=== PATIENT | female | born 1960 | race Caucasian/White ===

== ENCOUNTER 2023-08-10 13:48 | Outpatient (OUT) | payer BC, SELFPAY ==
--- NOTE | 2023-08-10 | XR_ITS ---
The [address] [address] Patient Name: RACHELE MARTINEZ MRN: [id number] date: 1960 Sex: F Assigned Patient Location: [facility] Current Patient Location: [facility] Accession/Order Number: [id number] Exam Date: 08/10/2023 09:10 Report Date: 08/10/2023 10:01 At the request of: DALLIN HIGGINS Procedure: XR foot LT min 3V STUDY: XR foot LT min 3V, [id number] HISTORY: LEFT FOOT PAIN COMPARISON: Left foot x-rays 02/09/2023. FINDINGS/IMPRESSION: First through third tarsometatarsal joint fusion. The fusion screws are intact and similar alignment. No evidence of loosening or infection. 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 Mild Achilles insertional enthesopathy. No acute fracture or dislocation. There is pes planus. Electronically authenticated by: MALCOLM SIMEON Date: 08/10/2023 10:01
== END 2023-08-10 13:49 | disposition home or self-care (01) ==
LOC: RAD 13:49
PROVIDERS: Visit Provider Podiatrist Foot & Ankle Surgery
DX: M19.072 Primary osteoarthritis, left ankle and foot (principal)
CPT/HCPCS: 73630

== ENCOUNTER 2024-03-12 11:25 | Outpatient (OUT) | payer OTHER, SELFPAY ==
[2024-03-12 13:05] LABS: Alanine Aminotransferase 31 U/L (14-59); Aspartate Amino Transferase 23 U/L (15-37)
== END 2024-03-12 11:26 | disposition home or self-care (01) ==
LOC: LAB 11:29
PROVIDERS: PCP Family Medicine; Visit Provider Obstetrics & Gynecology
DX: R23.2 Flushing (principal); Z90.710 Acquired absence of both cervix and uterus
CPT/HCPCS: 36415; 84450; 84460

== ENCOUNTER 2024-03-12 21:30 | Outpatient (REF) | payer OTHER, SELFPAY ==
[2024-03-16 14:09] LABS: Age Gdln ACOG Testing Note (.); HPV Aptima Negative (Negative); IGP, Aptima HPV, rfx 16/18,45 Note (.)
== END 2024-03-12 21:31 | disposition home or self-care (01) ==
LOC: LAB 21:30
PROVIDERS: PCP Family Medicine; Visit Provider Obstetrics & Gynecology
DX: Z01.419 Encounter for gynecological examination (general) (routine) without abnormal findings (principal); R23.2 Flushing; Z90.710 Acquired absence of both cervix and uterus
CPT/HCPCS: 36415; 84450; 84460; G0145

== ENCOUNTER 2024-03-19 08:54 | Outpatient (OUT) | payer OTHER, SELFPAY ==
--- NOTE | 2024-03-19 08:57 | XR_ITS ---
[address] [address] Patient Name: RACHELE MARTINEZ MRN: [id number] date: 1960 Sex: F Assigned Patient Location: [facility] Current Patient Location: [facility] Accession/Order Number: [id number] Exam Date: 03/19/2024 09:10 Report Date: 03/19/2024 09:41 At the request of: CHARU MARTINI Procedure: XR DEXA axial skeleton EXAMINATION: XR DEXA axial skeleton, 03/19/2024 9:10 AM EDT HISTORY: Osteoporosis M81.0 COMPARISON: None. TECHNIQUE: Dual-energy X-ray absorptiometry (DEXA) bone density study performed for the axial skeleton. HISTORY: Osteoporosis M81.0 FINDINGS: Bone mineral density AP spine L2-L4 measures 1.202 g/sq cm. T score 0.0. WHO classification: Normal. Lowest bone mineral densities the left femoral trochanter measuring 0.599 g/sq cm. The T score -2.2. WHO classification: Osteopenia XR/XR DEXA axial skeleton IMPRESSION: Osteopenia. Moderate fracture risk Electronically authenticated by: CARLITOS VANEGAS Date: 03/19/2024 09:41
== END 2024-03-19 08:55 | disposition home or self-care (01) ==
LOC: RAD 08:54
PROVIDERS: PCP Family Medicine; Visit Provider Obstetrics & Gynecology
DX: M81.0 Age-related osteoporosis without current pathological fracture (principal); M85.80 Other specified disorders of bone density and structure, unspecified site
CPT/HCPCS: 77080

== ENCOUNTER 2025-03-19 10:24 | Outpatient (OUT) | payer OTHER, SELFPAY | END 2025-03-19 10:25 | disposition home or self-care (01) | LOC: PST 10:24 | PROVIDERS: PCP Family Medicine; Visit Provider Surgery | DX: Z01.818 Encounter for other preprocedural examination (principal); Z12.11 Encounter for screening for malignant neoplasm of colon ==

== ENCOUNTER 2025-03-27 07:28 | Day surgery (SDC) | payer OTHER, SELFPAY ==
--- NOTE | 2025-03-27 | OP_ITS ---
OPERATION DATE: 03/27/2025 PREOPERATIVE DIAGNOSIS: Colorectal screening. POSTOPERATIVE DIAGNOSIS: Redundant tortuous colon. PROCEDURE: Colonoscopy to cecum. SURGEON: Lai Jean M.D. ANESTHESIA: Monitored anesthesia care. ESTIMATED BLOOD LOSS: Zero. INDICATIONS AND CONSENT: Patient is a 64-year-old female, presents for colorectal screening. Indications, risks, benefits, alternatives of proceeding with colonoscopy were explained extensively to the patient, including the risks of bleeding, colon perforation or anesthetic complications. All of her questions were answered. Informed consent was obtained. PROCEDURE: Patient brought to the operating room, placed in the left lateral decubitus position. Monitored anesthesia care was provided. Rectal exam was performed which showed no masses or blood. The scope was inserted into the anal canal. Under direct visualization was advanced. With the aid of abdominal compression and positional changes, it was able to be advanced to the cecum where cecal markings were clearly identified. Upon withdrawal of the scope, mucosal surfaces were carefully examined. There was noted to be a good prep. There were no mass lesions or polyps. No inflammatory changes or ulcerations. No significant diverticulosis. There was noted to be a very tortuous redundant colon. The scope was retroflexed in the anal canal. There was no significant hemorrhoidal disease. The scope was then withdrawn. Patient tolerated procedure well, was sent to recovery room in good condition. Follow up screening colonoscopy should be in 10 years. CC: Salud Guerrero M.D. LEON[place]
[2025-03-27 07:35] VITALS: BP 132/90; PULSE 116; TEMP 36.2; O2SAT 98; BMI 28.3
--- OUTSIDE RECORDS SUMMARY | 2025-03-27 07:39 | XMS_ITS | CCD ---
Author Organization [facility] Care Team Providers Care Tester Waste Disposal Leakage Name Role Phone Aneesh Rider Unavailable Prema Cardona Unavailable Nazanin Valladares Unavailable Vadim Cornejo Unavailable [facility] [place] RESENDIZ Consulting Unavailable CLEMENTE, DR VADIM Gonzalez Primary Care Unavailable [facility] [place] RESENDIZ Attending Unavailable [facility] [place] RESENDIZ Admitting Unavailable BELINDA, DR SANTY Cates Consulting Unavailable BELINDA, DR SANTY Cates Attending Unavailable BELINDA, DR SANTY Cates Admitting Unavailable CLEMENTE, DR VADIM Gonzalez Primary Care Unavailable JERSEY MILTON Consulting Unavailable DALLIN HIGGINS Consulting Unavailable CLEMENTE, DR VADIM Gonzalez Primary Care Unavailable DALLIN HIGGINS Attending Unavailable DALLIN HIGGINS Admitting Unavailable DANNIE ARZOLA Consulting Unavailable NUBIA, DR LOC Cates Consulting Unavailable CLEMENTE, DR VADIM Gonzalez Primary Care Unavailable DALLIN HIGGINS Attending Unavailable DALLIN HIGGINS Admitting Unavailable DALLIN HIGGINS Consulting Unavailable POLI SAMSON Consulting Unavailable ALBERTA SALINAS Consulting Unavailable GEMRENNY COLLADO Consulting Unavailable ROSALES MCCOY Consulting Unavailable SHARON VASQUEZ Consulting Unavailable CEZAR PETIT Consulting Unavailable CLEMENTE, DR VADIM Gonzalez Primary Care Unavailable CEZAR PETIT Attending Unavailable CEZAR PETIT Admitting Unavailable CARLITOS PIÑA Consulting Unavailable NUBIA, DR LOC Cates Consulting Unavailable CLEMENTE, DR VADIM Gonzalez Primary Care Unavailable CEZAR PETIT Attending Unavailable CEAZR PETIT Admitting Unavailable CEZAR PETIT Consulting Unavailable NALDO, DR CARLITOS Baugh Consulting Unavailable CLEMENTE, DR VADIM Gonzalez Primary Care Unavailable DALLIN HIGGINS Attending Unavailable DALLIN HIGGINS Admitting Unavailable DALLIN HIGGINS Consulting Unavailable NUBIA, DR LOC Cates Consulting Unavailable CLEMENTE, DR VADIM Gonzalez Primary Care Unavailable CLEMENTE, DR VADIM Gonzalez Attending Unavailable CORNEJO, DR VADIM Gonzalez Admitting Unavailable CORNEJO, DR VADIM Gonzalez Consulting Unavailable MINGUS, DR CARLITOS Baugh Consulting Unavailable CLEMENTE, DR VADIM Gonzalez Primary Care Unavailable RONALDO, DALLIN Angulo Attending Unavailable DALLIN HIGGINS Admitting Unavailable DALLIN HIGGINS Consulting Unavailable NUBIA, DR LOC Cates Consulting Unavailable CLEMENTE, DR VADIM Gonzalez Primary Care Unavailable DALLIN HIGGINS Attending Unavailable DALLIN HIGGINS Admitting Unavailable DALLIN HIGGINS Consulting Unavailable MD Vadim Cornejo Primary Care Provider MD Vadim Cornejo Attending Provider [phone] Vadim Cornejo Admitting Unavailable Vadim Cornejo Attending Unavailable Vadim Cornejo Primary Care Unavailable Vadim Cornejo MD Primary Care Provider Alejo Zavala MD Primary Care Provider Piper MUSEUM REGISTRAR, Cyndi Unavailable Barrett Ying DO Unavailable Piper MUSEUM REGISTRAR, Cyndi Unavailable [phone] BARRETT YING Attending Unavailable CYNDI PIPER Attending UnavailBARRETT Wheeler Referring Unavailable CYNDI PIPER Attending UnavailDIAN Anglin Attending Unavailable Lai LEBRON Attending Unavailable DIAN SORIANO Referring Unavailable Lai LEBRON Attending Unavailable DIAN SORIANO Referring Unavailable Allergies Allergy Classification Reported Allergen(s) Allergy Type Date of Onset Reaction(s) Facility (20 sources) Ciprofloxacin Drug Allergy 01-11-20 20 Shortness of breath, Angioedema [facility] (20 sources) NITROFURANTOIN, MACROCRYSTALS / Nitrofurantoin, Monohydrate Drug Allergy Unknown [facility] Other (20 sources) venlafaxine; Translations: [Effexor] Drug Allergy Unknown [facility] Repository (2 sources) Ciprofloxacin; Translations: [Cipro] Drug Allergy 10-08-20 15 [facility] Repository (1 source) Nitrofurantoin Drug Allergy 10-08-20 15 [facility] (20 sources) Nitrofurantoin; Translations: [nitrofurantoin] Drug Allergy 01-11-20 Rash, Shortness of breath [facility] (20 sources) venlafaxine; Translations: [venlafaxine] Drug Allergy 01-11-20 20 Shortness of breath [facility] (1 source) Ciprofloxacin Drug Allergy 04-24-20 [facility] Repository (2 sources) Allergies Reconciled Propensity to adverse reactions Unknown [facility] Other (20 sources) Baclofen; Translations: [baclofen] Drug Allergy 01-11-20 [facility] Work Phone: (3 sources) Penicillins Drug Allergy 01-11-20 Shortness of breath [facility] Medications Current Medications Medication Drug Class(es) Dates Sig (Normalized) Sig (Original) acetaminophen 300 mg / codeine phosphate 30 mg oral tablet (2 sources) Opioid Agonist Start: 04-24-2020 take 1 tablet by mouth every eight hours Acetaminophen-Code ine (Tylenol-Codeine #3) 300-30 mg Tablet Active 1 TAB PO Q8H April 24, 2020 12:00am Acetaminophen / HYDROcodone (20 sources) Opioid Agonist Start: 11-03-2020 take 1 tablet by mouth twice daily as needed [place] 5-325 MG 1 tablet as needed Orally twice daily for 7 days G89.29 Chronic pain Oct, Active alendronic acid 70 mg oral tablet (17 sources) Bisphosphonate Start: 03-29-2024 End: 02-26-2026 take 1 tablet by mouth in the morning alendronate (Fosamax) 70 MG tablet Indications: Osteopenia, unspecified location Take 1 tablet (70 mg) by mouth every 7 (seven) days Take in the morning with a full glass of water, on an empty stomach, and do not take anything else by mouth or lie down for the next 30 min. 4 tablet 11 02/26/2025 02/26/2026 Active ALPRAZolam 0.25 mg oral tablet (20 sources) Benzodiazepine Start: 01-25-2025 End: 03-28-2025 ALPRAZolam (Xanax) 0.25 MG tablet Indications: Generalized anxiety disorder (CMS/HCC) Take 1 tablet (0.25 mg) by mouth as needed at bedtime for anxiety 30 tablet 02/26/2025 03/28/2025 Active Start: 12-30-2024 ALPRAZolam (Xa nax) 0.25 MG tablet Indications: Generalized anxiety disorder (CMS/HCC) Take 1 tablet (0.25 mg) by mouth as needed at bedtime for anxiety Do not start before December 30, 2024. 30 tablet 12/30/2024 Active Start: 12-30-2024 ALPRAZolam (Xa nax) 0.25 MG tablet Indications: Generalized anxiety disorder (CMS/HCC) Take 1 tablet (0.25 mg) by mouth as needed at bedtime for anxiety Do not start before December 30, 2024. 30 tablet 12/30/2024 Active Start: 11-30-2024 End: 12-26-2024 ALPRAZolam (Xanax) 0.25 MG t ablet Indications: Generalized anxiety disorder (CMS/HCC) Take 1 tablet (0.25 mg) by mouth as needed at bedtime for anxiety Do not start before November 30, 2024. 30 tablet 11/30/2024 12/26/2024 Discontinued (Reorder) Start: 11-30-2024 ALPRAZolam (Xa nax) 0.25 MG tablet Indications: Generalized anxiety disorder (CMS/HCC) Take 1 tablet (0.25 mg) by mouth as needed at bedtime for anxiety Do not start before November 30, 2024. 30 tablet 11/30/2024 Active Start: 11-30-2024 ALPRAZolam (Xa nax) 0.25 MG tablet Indications: Generalized anxiety disorder (CMS/HCC) Take 1 tablet (0.25 mg) by mouth as needed at bedtime for anxiety Do not start before November 30, 2024. 30 tablet 11/30/2024 Active Start: 10-30-2024 End: 11-29-2024 take 1 tablet by mouth three times daily as needed for anxiety ALPRAZolam (Xanax) 0.25 MG tablet Indications: Generalized anxiety disorder (CMS/HCC) Take 1 tablet (0.25 mg) by mouth 3 (three) times a day as needed for anxiety Do not start before October 30, 2024. 30 tablet 10/30/2024 11/29/2024 Discontinued (Reorder) Start: 10-30-2024 take 1 tablet by zeynep th three times daily as needed for anxiety ALPRAZolam (Xanax) 0.25 MG tablet Indications: Generalized anxiety disorder (CMS/HCC) Take 1 tablet (0.25 mg) by mouth 3 (three) times a day as needed for anxiety Do not start before October 30, 2024. 30 tablet 10/30/2024 Active Start: 08-07-2024 take 1 tablet by zeynep th three times daily as needed for anxiety ALPRAZolam (Xanax) 0.25 MG tablet Indications: Generalized anxiety disorder (CMS/HCC) Take 1 tablet (0.25 mg) by mouth 3 (three) times a day as needed for anxiety 30 tablet 08/07/2024 Active Start: 01-19-2024 End: 02-17-2024 take 0.25 mg by mouth twice daily Alprazolam Active 0.25 MG PO Twice daily 30 February 17, 2024 10:26am Start: 06-03-2023 End: 10-25-2024 take 1 tablet by mouth three times daily as needed for anxiety ALPRAZolam (Xanax) 0.25 MG tablet Indications: Generalized anxiety disorder (CMS/HCC) Take 1 tablet (0.25 mg) by mouth 3 (three) times a day as needed for anxiety 30 tablet 10/01/2024 10/25/2024 Discontinued (Reorder) Start: 03-23-2023 take 1 tablet by zeynep th three times daily as needed ALPRAZolam 0.25 mg TAKE 1 TABLET BY MOUTH THREE TIMES DAILY NEEDED for March, Active Start: 02-10-2023 take 1 tablet by zeynep th three times daily as needed ALPRAZolam 0.25 mg TAKE 1 TABLET BY MOUTH THREE TIMES DAILY NEEDED for Jan, Active Start: 12-13-2022 take 1 tablet by zeynep th three times daily as needed ALPRAZolam 0.25 mg TAKE 1 TABLET BY MOUTH THREE TIMES DAILY NEEDED for Nov, Active atenolol 50 mg oral tablet (20 sources) beta-Adrenergic Sarah Start: 01-04-2025 take 1 tablet by mouth once daily atenolol (Tenormin) 50 MG tablet Indications: Primary hypertension (CMS/HCC) Take 1 tablet (50 mg) by mouth Daily 30 tablet 3 01/04/2025 Active Start: 01-02-2024 take 1 tablet by zeynep th once daily Atenolol Active 0 .ROUTE .COMPLEX 90 January 02, 2024 1:14pm TAKE 1 TABLET BY MOUTH DAILY Start: 04-24-2020 End: 01-02-2024 take 50 mg by mouth once daily Atenolol Discontinued 5 0 MG PO Daily April 24, 2020 12:00am January 02, 2024 1:14pm Baclofen (20 sources) gamma-Aminobutyric Acid-ergic Agonist busPIRone hydrochloride 15 mg oral tablet (20 sources) Start: 02-18-20 take 1 tablet by mouth in the morning busPIRone (Buspar) 15 MG tablet Take 15 mg by mouth in the morning and 15 mg before bedtime. 02/17/2025 Active Start: 06-20-2024 End: 08-06-2024 take 1 tablet by mouth in the morning busPIRone (Buspar) 15 MG tablet Take 15 mg by mouth in the morning and 15 mg before bedtime. 06/20/2024 08/06/2024 Discontinued (Duplicate order) Start: 03-19-2024 take 10 mg by mouth twice alexi y Buspirone Active 10 MG PO Twice daily March 19, 2024 12:00am End: 02-28-2025 take 1 tablet by mouth once daily busPIRone (Buspar) 10 MG tablet Take 10 mg by mouth Daily 02/28/2025 Discontinued (Therapy completed) calcium citrate 950 mg oral tablet (10 sources) Start: 03-19-2024 End: 11-29-2024 calcium citrate (Calcitrate) 950 (200 Ca) MG tablet Daily 03/19/2024 11/29/2024 Discontinued cholecalciferol 0.025 mg oral tablet (13 sources) Vitamin D Start: 01-16-2023 End: 11-29-2024 take 1 tablet by mouth in the morning cholecalciferol (Vitamin D-3) 25 MCG tablet Take 25 mcg by mouth in the morning. 01/16/2023 11/29/2024 Discontinued cyclobenzaprine hydrochloride 10 mg oral tablet (20 sources) Muscle Relaxant Start: 05-29-2023 take 4 tablets by mouth at bedtime cyclobenzaprine (Flexeril) 10 MG tablet TAKE 4 TABLETS BY MOUTH AT BEDTIME 05/29/2023 Active Start: 04-24-2020 take 30 mg by mouth once daily at bedtime Cyclobenzaprine Active 30 MG PO Daily at bedtime April 24, 2020 12:00am take 1 tablet by zeynep th every twenty-four hours Cyclobenzaprine HCl 10 MG 1 tablet at bedtime as needed Orally Once a day Active estradiol 2 mg oral tablet (20 sources) Estrogen Start: 11-23-2024 End: 11-23-2025 take 1 tablet by mouth once daily estradiol (Estrace) 2 MG tablet Indications: Menopause , Hot flashes , Vaginal dryness Take 1 tablet (2 mg) by mouth Daily Take 1 tablet by mouth for 30 days 30 tablet 11 11/23/2024 11/23/2025 Active Start: 01-02-2024 End: 08-06-2024 take 1 tablet by mouth once daily estradiol (Estrace) 2 MG tablet Indications: Vaginal dryness Take 1 tablet (2 mg) by mouth Daily 30 tablet 2 03/15/2024 08/06/2024 Discontinued (Discontinued by another clinician) Start: 06-02-2023 End: 12-26-2023 apply 1 dose transdermal route two times weekly Magaly 0.1 MG/24HR APPLY 1 (ONE) patch to the skin twice a week 0 06/02/2023 12/26/2023 Discontinued (Med list cleanup) Start: 04-24-2020 End: 01-02-2024 apply 1 dose topically two times weekly Estradiol Discontinued 1 PATCH TOPICAL Twice a Week April 24, 2020 12:00am January 02, 2024 5:14pm fridays and tuesdays take 1 tablet by zeynep th every twenty-four hours Estradiol 2 MG 1 tablet Orally Once a day for 30 days Active take 1 tablet by zeynep th every twenty-four hours Estradiol 1 MG 1 tablet Orally Once a day for 30 days Active apply 1 dose transde rmal route two times weekly Estradiol 0.075 MG/24HR 1 patch to skin Transdermal Two times a Week Active [place] Not-Jadyn ng Fezolinetant (Veozah) 45 MG tablet (4 sources) Start: 11-20-2024 End: 11-29-2024 take 1 tablet by mouth once daily Fezolinetant (Veozah) 45 MG tablet Indications: Menopause , Hot flashes Take 1 tablet by mouth Daily 30 tablet 2 11/20/2024 11/29/2024 Discontinued (Side effects) Start: 08-17-2024 End: 09-16-2024 take 1 tablet by mouth once daily Fezolinetant (Veozah) 45 MG tablet Indications: Hot flashes Take 1 tablet by mouth Daily 30 tablet 2 08/17/2024 09/16/2024 Active furosemide 40 mg oral tablet (20 sources) Loop Diuretic Start: 01-04-2025 take 1 tablet by mouth once daily furosemide (Lasix) 40 MG tablet Indications: Primary hypertension (CMS/HCC) Take 1 tablet (40 mg) by mouth Daily 30 tablet 3 01/04/2025 Active Start: 04-24-2020 take 40 mg by mouth once daily Furosemide Active 40 MG PO Daily April 24, 2020 12:00am levothyroxine sodium 0.075 mg oral tablet (15 sources) l-Thyroxine Start: 03-20-2025 End: 06-18-2025 take 1 tablet by mouth before mealtime levothyroxine (Synthroid, Levoxyl) 75 MCG tablet Indications: Adult hypothyroidism (CMS/HCC) Take 1 tablet (75 mcg) by mouth in the morning. Take before meals. 90 tablet 03/20/2025 06/18/2025 Active Start: 01-04-2025 End: 03-20-2025 take 1 tablet by mouth once daily levothyroxine (Synthroid, Levoxyl) 50 MCG tablet Indications: TSH elevation Take 1 tablet (50 mcg) by mouth Daily 30 tablet 3 01/04/2025 03/20/2025 Discontinued (Ineffective) Start: 08-20-2024 End: 08-20-2025 take 1 tablet by mouth once daily levothyroxine (Synthroid, Levoxyl) 25 MCG tablet Indications: TSH elevation Take 1 tablet (25 mcg) by mouth Daily 30 tablet 3 11/29/2024 01/04/2025 Discontinued (Reorder) lisinopril 2.5 mg oral tablet (20 sources) Angiotensin Converting Enzyme Inhibitor Start: 04-24-2020 End: 12-26-2023 take 2.5 mg by mouth once daily Lisinopril Active 2.5 MG PO Daily April 24, 2020 12:00am methylPREDNISolone (4 sources) Corticosteroid Start: 02-28-2025 End: 03-07-2025 methylPREDNISolone (Medrol Dospak) 4 MG tablets Indications: Osteoarthritis of left knee, unspecified osteoarthritis type Take with food, Follow schedule on package instructions 21 tablet 02/28/2025 03/07/2025 Active Start: 12-26-2023 methylPREDNISo lone (Medrol Dospak) 4 MG tablets Indications: Knee strain, left, initial encounter Follow schedule on package instructions 21 tablet 0 12/26/2023 Active metoclopramide 5 mg oral tablet (20 sources) Dopamine-2 Receptor Antagonist Start: 06-27-2023 End: 10-01-2025 metoclopramide (Reglan) 5 MG tablet Indications: Gastroesophageal reflux disease with esophagitis, unspecified whether hemorrhage Take 1 tablet (5 mg) by mouth in the morning and 1 tablet (5 mg) at noon and 1 tablet (5 mg) in the evening and 1 tablet (5 mg) before bedtime. 120 tablet 11 10/01/2024 10/01/2025 Active omeprazole 40 mg delayed release oral capsule (20 sources) Proton Pump Inhibitor Start: 04-24-2020 take 40 mg by mouth twice daily Omeprazole Active 40 MG PO Twice daily April 24, 2020 12:00am take 1 capsule by [facility] every twenty-four hours Omeprazole 40 MG 1 capsule Orally Once a day Active polyethylene glycol 3350 40099 mg powder for oral solution (19 sources) Osmotic Laxative Start: 04-24-2020 take 17 g by mouth once daily Polyethylene Glycol 3350 Active 17 GM PO Daily April 24, 2020 12:00am sulfamethoxazole 800 mg / trimethoprim 160 mg oral tablet (8 sources) Dihydrofolate Reductase Inhibitor Antibacterial, Sulfonamide Antimicrobial Start: 02-03-2023 take 1 tablet by mouth every twelve hours Bactrim DS 800-160 MG 1 tablet Orally Twice a day for 10 day(s) Jan, Active SZSTANDARD1-Topical Cream Baclofen 2%, Cyclobenzaprine HCL 2%, Diclofenac Na 3%, Gabapentin 6%, Lidocaine HCL 2% Cream (15 sources) Start: 04-02-2022 SZSTANDARD1-Topical Cream Baclofen 2%, Cyclobenzaprine HCL 2%, Diclofenac Na 3%, Gabapentin 6%, Lidocaine HCL 2% Cream 1-2 grams TOPICALLY APPLY 1-2 GRAMS FOR 2-3 MINUTES EVERY 6-8 HOURS for 30 day(s) G89.29 Chronic pain March, Active traMADol hydrochloride 50 mg oral tablet (20 sources) Opioid Agonist Start: 06-28-2023 traMADol (Ultram) 50 MG tablet 06/28/2023 Active veozah 45 mg tablet (1 source) Start: 11-15-2023 take 1 tablet by mouth every twenty-four hours Veozah 45 MG 1 tablet Orally Once a day for 30 day(s) Nov, Active Veozah 45 MG tablet (2 sources) Start: 07-08-2024 take 1 tablet by mouth once daily Veozah 45 MG tablet Take 1 tablet by mouth Daily 07/08/2024 Active Completed/Discontinued Medications Medication Drug Class(es) Dates Sig (Normalized) Sig (Original) diclofenac sodium 0.01 mg/mg topical gel (20 sources) Nonsteroidal Anti-inflammatory Drug Start: 04-24-2020 End: 03-19-2024 Diclofenac Sodium Discontinued 1 PERCENT TOPICAL Daily April 24, 2020 12:00am March 19, 2024 11:10am Voltaren 1 % as directed Transdermal 1-2 grams every 6-8 hours as needed Active etodolac 500 mg oral tablet (20 sources) Nonsteroidal Anti-inflammatory Drug Start: 04-24-2020 End: 05-03-2020 take 500 mg by mouth once Etodolac Discontinued 500 MG PO Once April 24, 2020 12:00am May 03, 2020 9:08am take 1 tablet by zeynep th every twelve hours Etodolac 500 MG 1 tablet with food Orall y Twice a day Not-Taking fluconazole 150 mg oral tablet (20 sources) Azole Antifungal Start: 02-25-2023 take 1 tablet by mouth every twenty-four hours Fluconazole 100 MG 1 tablet Orally once a day for 7 days Jun, Active Start: 02-25-2023 End: 08-06-2024 take 1 tablet by mouth once fluconazole (Diflucan) 150 MG tablet TAKE 1 TABLET BY MOUTH as a one time dose 02/25/2023 08/06/2024 Discontinued (Therapy completed) Multivitamin (Multiple Vitamins) Tablet (2 sources) Start: 04-24-2020 End: 03-19-2024 take 1 tablet by mouth once daily Multivitamin (Multiple Vitamins) Tablet Discontinued 1 TAB PO Daily April 24, 2020 12:00March 19, 2024 11:10am Start: 04-24-2020 take 1 tablet by zeynep th once daily Multivitamin (Multiple Vitamins) Tablet Active 1 TAB PO Daily April 24, 2020 12:00am OXcarbazepine 300 mg oral tablet (20 sources) Anti-epileptic Agent Start: 04-24-2020 End: 03-19-2024 take 300 mg by mouth twice daily Oxcarbazepine Discontinued 300 MG PO Twice daily April 24, 2020 12:00am March 19, 2024 11:11am End: 08-06-2024 OXcarbazepine (Trileptal) 30 0 MG tablet every 12 (twelve) hours. 08/06/2024 Discontinued (Discontinued by another clinician) polysaccharide iron complex 150 mg oral capsule (4 sources) Start: 05-03-2020 End: 03-19-2024 Polysaccharide Iron Complex (Poly-Iron) 150 mg iron Capsule Discontinued 150 MG PO Q48H 0 May 03, 2020 9:06am March 19, 2024 11:12am Start: 04-24-2020 End: 05-03-2020 take 1 capsule by mouth once daily Polysaccharide Iron Complex (Poly-Iron) 150 mg iron Capsule Discontinued 150 MG PO Daily April 24, 2020 12:00am May 03, 2020 9:06am rivaroxaban 10 mg oral tablet (2 sources) Factor Xa Inhibitor Start: 05-03-2020 End: 03-19-2024 take 1 tablet by mouth once daily Rivaroxaban (Xarelto) 10 mg Tablet Discontinued 10 MG PO Daily 14 May 03, 2020 12:00am March 19, 2024 11:12am sennosides, group home 8.6 mg oral tablet (2 sources) Start: 05-03-2020 End: 03-19-2024 take 2 tablets by mouth twice daily Sennosides (Senna Lax) 8.6 mg Tablet Discontinued 2 TAB PO Twice daily 56 May 03, 2020 12:00am March 19, 2024 11:12am Triamcinolone (20 sources) Corticosteroid Start: 08-05-2017 Kenalog -40 mg Jul, 40 mg Problems Active Problems Problem Classification Problem Date Documented Da te Episodic/Chronic Acquired foot deformities (1 source) Flat foot [pes planus] (acquired), left foot; Translations: [FLAT FOOT PES PLANUS ACQ LT FOOT] Onset: 12-18-2022 Episodic Allergic reactions (20 sources) Atopic dermatitis; Translations: [Atopic dermatitis, unspecified] Onset: 06-29-2023 06-29-2023 Chronic Anxiety disorders (20 sources) Panic disorder without agoraphobia; Translations: [Panic disorder [episodic paroxysmal anxiety]] Onset: 06-29-2023 Resolved: 02-28-2025 06-29-2023 Chronic Blindness and vision defects (10 sources) Visual disturbance; Translations: [Unspecified visual disturbance] Episodic Complication of device; implant or graft (13 sources) Breakdown (mechanical) of other nervous system device, implant or graft, initial encounter; Translations: [Pain due to other internal prosthetic devices, implants and grafts, subsequent encounter] Onset: 10-02-2022 Episodic Complications of surgical procedures or medical care (11 sources) Pseudarthrosis after fusion or arthrodesis; Translations: [Pseudarthrosis after fusion or arthrodesis] Onset: 10-20-2022 Episodic Esophageal disorders (20 sources) Gastro-esophageal reflux disease without esophagitis; Translations: [Gastroesophageal reflux disease] Onset: 10-20-2022 05-01-2020 Chronic Essential hypertension (20 sources) Essential (primary) hypertension; Translations: [Hypertensive disorder] Onset: 10-20-2022 05-01-2020 Chronic Genitourinary symptoms and ill-defined conditions (20 sources) Female stress incontinence; Translations: [Stress incontinence (female) (male)] Onset: 06-29-2023 06-29-2023 Chronic Joint disorders and dislocations; trauma-related (20 sources) Patellar maltracking; Translations: [Other disorders of patella, left knee] Onset: 06-29-2023 06-29-2023 Chronic Menopausal disorders (11 sources) Menopausal flushing; Translations: [Menopausal and female climacteric states] Chronic Nutritional deficiencies (20 sources) Vitamin D deficiency; Translations: [Vitamin D deficiency, unspecified] Onset: 06-29-2023 06-29-2023 Chronic Osteoarthritis (20 sources) Primary osteoarthritis, left ankle and foot; Translations: [Localized, primary osteoarthritis of the ankle and/or foot] Onset: 10-02-2022 Resolved: 02-28-2025 Chronic Other bone disease and musculoskeletal deformities (6 sources) Osteopenia; Translations: [Other specified disorders of bone density and structure, unspecified site] Onset: 12-28-2024 02-28-2025 Episodic Other connective tissue disease (20 sources) History of total knee arthroplasty; Translations: [Presence of unspecified artificial knee joint] Onset: 06-29-2023 05-01-2020 Chronic Other connective tissue disease (5 sources) Pain in left foot; Translations: [PAIN IN LEFT FOOT] Onset: 10-07-2022 Episodic Other connective tissue disease (9 sources) Pain in right foot; Translations: [Pain in right foot] Episodic Other connective tissue disease (9 sources) Pain in left foot; Translations: [Pain in left foot] Episodic Other connective tissue disease (10 sources) Ganglion, unspecified ankle and foot; Translations: [Ganglion, unspecified ankle and foot] Episodic Other connective tissue disease (9 sources) Achilles bursitis; Translations: [Achilles tendinitis, left leg] Episodic Other connective tissue disease (9 sources) Tendon contracture; Translations: [Short Achilles tendon (acquired), left ankle] Episodic Other connective tissue disease (1 source) Achilles tendinitis, left leg; Translations: [Achilles tendinitis, left leg] Episodic Other connective tissue disease (1 source) Pain in right foot; Translations: [Pain in right foot] Episodic Other connective tissue disease (1 source) Short Achilles tendon (acquired), left ankle; Translations: [Short Achilles tendon (acquired), left ankle] Episodic Other female genital disorders (1 source) Other specified noninflammatory disorders of vagina Episodic Other gastrointestinal disorders (15 sources) Irritable bowel syndrome; Translations: [Irritable bowel syndrome without diarrhea] Onset: 02-28-2025 02-28-2025 Chronic Other gastrointestinal disorders (1 source) Irritable bowel syndrome without diarrhea; Translations: [Irritable bowel syndrome without diarrhea] Chronic Other lower respiratory disease (2 sources) Other forms of dyspnea; Translations: [OTHER FORMS OF DYSPNEA] Onset: 08-06-2022 Episodic Other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 Performed By: #### C BC ####[facility] [address] [place] [id number] Major Vargas EO # 0.2 103/ul Normal 0.0-0.7 The [facility] Comment on above: Performed By: #### C BC ####[facility] [address] [place] [id number] Major Vargas Eosinophils/100 WBC (Bld) 2.0 % Normal 0.9-7.0 The [facility] Comment on above: Performed By: #### C BC ####[facility] Zsaybs[address]cv[address] [place], [place] [address]Dr. Major Kaye Erythrocyte distribution width (RBC) [Ratio] 12.7 % Normal 11.0-15.0 The [facility] Comment on above: Performed By: #### C BC ####[facility] [address] [place], [place] [address]Dr. Major Kaye Hematocrit (Bld) [Volume fraction] 35.7 % Critically low 36.0-48.0 The [facility] Comment on above: Performed By: #### C BC ####[facility] [address] [place], [place] [address]Dr. Yinkendra Kaye Hemoglobin (Bld) [Mass/Vol] 11.6 g/dL Critically low 12.0-16.0 [facility] Comment on above: Performed By: #### C BC ####[facility] Rnfm[address]pcau[address] [place], [place] [address]Dr. Major Kaye IG # 0.02 10e3/ul Normal 0.00-0.03 The [facility] Comment on above: Performed By: #### C BC ####[facility] Hf[address]wnrbxjl[address] [place], [place] [address]Dr. Yinkendra Kaye IG % 0.3 % Normal 0.0-0.5 The [facility] Comment on above: Performed By: #### C BC ####[facility] Psr[address]cn[address] [place], [place] [address]Dr. Major Kaye LYMPH # 1.7 103/ul Normal 1.2-3.8 The [facility] Comment on above: Performed By: #### C BC ####[facility] E[address]cnlv[address] [place], [place] [address]Dr. Major Kaye Lymphocytes/100 WBC (Bld) 23.4 % Normal 20.5-60.0 The [facility] Comment on above: Performed By: #### C BC ####[facility] [address]qta[address] [place], [place] [address]Dr. Major Kaye MANUAL DIFF REQ NO Normal [facility] Comment on above: Performed By: #### C BC ####[facility] [address] [place], [place] [address]Dr. Major Vargas MCH (RBC) [Entitic mass] 30.4 pg Normal 26.7-34.0 The [facility] Comment on above: Performed By: #### C BC ####[facility] [address] [place] [address]Dr. Major Kaye MCHC (RBC) [Mass/Vol] 32.5 g/dL Normal 29.9-35.2 The [facility] Comment on above: Performed By: #### C BC ####[facility] [address] [place] [address]Dr. Major Vargas MCV (RBC) [Entitic vol] 93.5 fL Normal 81.0-99.0 The [facility] Comment on above: Performed By: #### C BC ####[facility] [address] [place] [address]Dr. Yinkendra Kaye MONO # 0.4 103/ul Normal 0.3-0.8 The [facility] Comment on above: Performed By: #### C BC ####[facility] W[address] [place], [place] [address]Dr. Yinkendra Kaye Monocytes/100 WBC (Bld) 5.2 % Normal 1.7-12.0 The [facility] Comment on above: Performed By: #### C BC ####[facility] [address] [place], [place] [address]Dr. Major Kaye NEUT # 5.0 103/ul Normal 1.4-6.5 The [facility] Comment on above: Performed By: #### C BC ####[facility] [address] [place], [place] [address]Dr. Yinkendra Kaye Neutrophils/100 WBC (Bld) 68.4 % Normal 43.0-75.0 The [facility] Comment on above: Performed By: #### C BC ####[facility] [address] [place], [place] [address]Dr. Major Kaye Platelet mean volume (Bld) [Entitic vol] 10.0 fL Normal 9.5-13.5 The [facility] Comment on above: Performed By: #### C BC ####[facility] [address] [place], [place] [address]Pj. Major Kaye PLT 297 103/ul Normal 150-450 [facility] Comment on above: Performed By: #### C BC ####[facility] [address] [place], [place] [address]Qm. Major Kaye RBC 3.82 106/ul Critically low 4.20-5.40 [facility] Comment on above: Performed By: #### C BC ####[facility] [address] [place], [place] [address]Bb. Major Kaye WBC 7.3 103/ul Normal 4.0-11.0 The [facility] Comment on above: Performed By: #### C BC ####[facility] [address] [place], [place] [address]Cs. Major Kaye Covid-19 PCR (CVDTBH)on 09-14 SARS-CoV-2 (COVID-19) RNA LARRY+probe Ql (Unsp spec) Not detected Normal NOT DETECTED The [facility] Comment on above: Result Comment: This test is not yet approved or cleared by the [place] FDA. When there are no FDA-approved or cleared tests available, and other criteria are met, FDA can make tests available under an emergency access mechanism called an Emergency Use Authorization (EUA). The EUA for this test is supported by the [place] of Health and Human Service's (HHS's) declaration that circumstances exist to justify the emergency use of in vitro diagnostics for the detection and/or diagnosis of the virus that causes COVID-19. This EUA will remain in effect (meaning this test can be used) for the duration of the COVID-19 declaration justifying emergency of IVDs, unless it is terminated or revoked by FDA (after which the test may no longer be used). When diagnostic testing is negative, the possibility of a false negative should be considered in the context of a patient's recent exposures and the presence of clinical signs and symptoms consistent with SARS-CoV-2. Performed By: #### C VDTBH #### [facility] [address] [place], [place] [address] Dr. Major Kaye PROF CHEM 8 (BAS METB)on Anion gap [Moles/Vol] 8.8 mmol/L Normal [facility] Comment on above: Performed By: #### B MP #### [facility] [address] [address] [address] Major Kaye Calcium [Mass/Vol] 8.2 mg/dL Critically low 8.5-10.1 Th e [facility] Comment on above: Performed By: #### B MP #### [facility] [address] [address] [address] Major Kaye Chloride [Moles/Vol] 104 mmol/L Normal 98-107 [facility] Comment on above: Performed By: #### B MP #### [facility] [address] [place] [address] Dr. Major Kaye CO2 [Moles/Vol] 28.4 mmol/L Normal 21.0-32.0 [facility] Comment on above: Performed By: #### B MP #### [facility] [address] [place] [address] Dr. Major Kaye Creatinine [Mass/Vol] 0.56 mg/dL Normal 0.55-1.02 [facility] Comment on above: Performed By: #### B MP #### [facility] [address] [place] [address] Dr. Major Kaye EGFR-AF ESTONIAN >60 Normal >=60 [facility] Comment on above: Performed By: #### B MP #### [facility] [address] [address] [address] Major Kaye EGFR-NON AF ESTONIAN >60 Normal >=60 [facility] Comment on above: Performed By: #### B MP #### [facility] [address] [address] [address] Major Kaye Glucose [Mass/Vol] 95 mg/dL Normal 74-106 [facility] Comment on above: Performed By: #### B MP #### [facility] [address] [place] [address] Dr. Major Kaye Potassium [Moles/Vol] 4.2 mmol/L Normal 3.5-5.1 [facility] Comment on above: Performed By: #### B MP #### [facility] [address] [place], [place] [address] Dr. Major Kaye Sodium [Moles/Vol] 137 mmol/L Normal 136-145 [facility] Comment on above: Performed By: #### B MP #### [facility] [address] [place], [place] [address] Dr. Major Kaye Urea nitrogen [Mass/Vol] 11.0 mg/dL Normal 7.0-18.0 [facility] Comment on above: Performed By: #### B MP #### [facility] [address] [place], [place] [address] Dr. Major Kaye Urea nitrogen/Creatinine [Mass ratio] 19.6 mg/mg Normal [facility] Comment on above: Performed By: #### B MP #### [facility] [address] [place], [place] [address] Dr. Major Kaye XR LSPINE MIN 4 VIEWSon 07-16 XR LSPINE MIN 4 VIEWS EXAMINATION: XR LSPINE MIN 4 VIEWS HISTORY: Disorder of sacrum ; acute lumbar pain since injury 2 months ago COMPARISON: No relevant comparison available. FINDINGS: BONES: Mild degenerative facet arthropathy L3-L4 through L5-S1. No fracture, spondylolisthesis, bone lesion. DISC SPACES: Mild narrowing L1-L2. PARASPINOUS: Negative. No paraspinous abnormality is seen. OTHER: Negative. IMPRESSION: 1. Mild degenerative changes of lumbar spine; no specific findings to account for patient's symptoms. Electronically authenticated by: LOC DELACRUZ Date: 2022-08-05 14:26 Normal [facility] SCREENING MAMMOGRAM W/ANU, BILATERAL*on 07-15-2022 SCREENING MAMMOGRAM W/ANU, BILATERAL* COMPARISON: January 14, 2021 TECHNIQUE: 2D and 3D Tomosynthesis of the right and left breasts was performed. FINDINGS: Breast composition demonstrates almost entirely fat. Overall appearance is stable. No suspicious microcalcifications, asymmetry, architectural distortion, or associated features are present. IMPRESSION: BIRADS 1: Negative mammogram Board Certified Radiologist. Accredited by the ACR and FDA. MAMMOGRAPHY IS VERY IMPORTANT TO YOUR HEALTH. THE CURRENT [place] [employer] GUIDELINES RECOMMENDS ANNUAL MAMMOGRAPHY BEGINNING AT AGE 40 THIS FACILITY USES A REMINDER SYSTEM TO ENSURE ALL PATIENTS RECEIVE REMINDER NOTIFICATIONS AT THE APPROPRIATE TIME BASED ON THE RECOMMENDATIONS OF THIS EXAM. Report reported and signed by Chad Montgomery on 07/15/2022 0945 Normal [facility] [employer] CNOVon 01-11-2020 CNOV Office Visit (PAINLN ) RACHELE FLORES ([id number]) 1960 F Date Time Provider Department 01/11/20 8:30 AM CESAR GUERRERO During your visit today, we recorded the following information about you: Pulse Weight Height 99/minute 64.9 kg 1.575 m Cesar Guerrero DO 01/11/2020 10:29 AM Signed [facility] Initial Evaluation January 11, 2020 This appointment was requested by Adelia Vega, for my medical opinion regarding? the evaluation and management of the patient's Rachele Flores problems, and my final recommendations will be communicated to the requesting health care provider by way of the shared medical record for internal providers or letter via the [employer] for external providers. SUBJECTIVE: Rachele Flores a 59 year old presents to [facility] Pain Management Department, accompanied by spouse, Rik, was referred by Adelia Vega, for an initial evaluation for head pain The pain is located in the head base of skull and radiates around anterior neck above the ear along anterior aspect and posterior aspect to the level of ear Distribution: Head, neck ear Started several years ago, was not directly related to injury/trauma, and symptoms have been worsening. Characterized as aching, sharp and shooting Currently the pain is a rated at a 9 on a scale of 0-10. Worst pain score is rated at 10 on a scale of 0-10. Best pain score is rated at 4 on a scale of 0-10. Aggravated by sudden head movements Mitigated by ice , heat and stretching . Current treatments and response: PT Stretches (+) little relief Voltaren gel (+) little relief Tylenol # 3 PRN (+) relief Uses sparsely Response to previous treatments: Occipital nerve blocks - one day relief Dexamethasone (helped temporarily) Flexeril (mostly for RLS at night) Tramadol- uses for her arthritis Tylenol 3- takes infrequently Gabapentin (didn't help) Amitryptiline (didn't help) Lyrica (didn't help) Voltaren gel (didn't help) Zanaflex (didn't help) PT Dr Natalee Keene 2018 (+) relief Alcohol Abuse - No Drug Abuse - No Current Anticoagulant Therapy: No Sleep Disturbance: Yes: Difficulty falling asleep. and Difficulty staying asleep. PAST MEDICAL HISTORY Diagnosis Date - Arthritis - HTN (hypertension) - Occipital neuralgia of right side mild on left No past surgical history on file. Social History Tobacco Use - Smoking status: Former Smoker - Smokeless tobacco: Never Used Substance Use Topics - Alcohol use: Yes Frequency: 2-4 times a month - Drug use: Never No family history on file. ALLERGIES No Known Allergies Current Outpatient Medications Medication Sig - lisinopril 2.5 mg tablet Take 2.5 mg by mouth once daily. - furosemide (LASIX) 40 mg tablet Take 40 mg by mouth once daily. - Etodolac 500 mg tablet Take 500 mg by mouth twice daily. - Omeprazole 40 mg capsule Take 40 mg by mouth twice daily. - estradiol (CLIMARA) 0.075 mg/24 hr Apply 1 Patch as directed two times a week. - diclofenac sodium (VOLTAREN) 1 % topical gel Apply to affected area as needed. - acetaminophen-codeine (TYLENOL-CODEINE #3) 300-30 mg per tablet Take 1 tablet by mouth every 4 hours as needed. - OXcarbazepine (TRILEPTAL) 300 mg tablet Take 1 tablet by mouth twice daily. - baclofen (LIORESAL) 10 mg tablet Take 1 tablet by mouth three times daily as needed. No current facility-administered medications for this visit. Review of Symptoms: GENERAL:No weight loss, malaise or fevers., SEE HPI HEENT:Negative for frequent or significant headaches, No changes in hearing or vision, no nose bleeds or other nasal problems NECK:Negative for lumps, goiter, pain and significant neck swelling RESPIRATORY: Negative for cough, wheezing or shortness of breath. CARDIOVASCULAR: Negative for chest pain, leg swelling and palpitations GASTROINTESTINAL: Negative for abdominal discomfort, blood in stools or black stools or change in bowel habits GENITOURINARY: No history of dysuria, frequency or incontinence DEVELOPMENT TRAINER: Negative for abnormal vaginal bleeding, abnormal vaginal discharge MUSCULOSKELETAL: Head , neck NEUROLOGIC:Negative for focal numbness or weakness, headaches and dizziness or syncope. SKIN:Negative for lesions, rash, and itching. PSYCHIATRIC: Negative for sleep disturbance, mood disorder and recent psychosocial stressors. HEMATOLOGIC/LYMPHATIC /IMMUNOLOGIC:Negative for prolonged bleeding, bruising easily or swollen nodes. ENDOCRINE: Negative for cold or heat intolerance, polyuria, polydipsia and goiter. The remainder of the ROS was negative. PREVIOUS TREATMENTS LASTING SIX WEEKS IN THE LAST SIX MONTHS Active conservative therapy lasting 6 weeks in the last six months (see below) 1. Physical therapy: Yes 2. Home exercise program after PT: No 3. Occupational therapy: No 4. A physician supervised home exercise program (HEP) No 5. Geospatial Program Management Officer: No Passive conservative therapy lasting 6 weeks in the last six months (see below) 1. Medical devises: Yes cane 2. Acupuncture: No 3. Tens unit: No 4. Prescription pain medication: Yes 5. NSAIDS: No Do you feel safe at home? Yes Risk assessment at risk due to fall:None3 Marycarmen Clayton MA January 11, 2020 The subjective information, including chief complaint, past medical history and review of systems, was explored in detail with the patient and edited as needed and is complete. Cesar Guerrero DO January 11, 2020 Physical Examination: Pulse 99 Ht 5' 2 (1.58m) Wt 143 lb (64.9kg) SpO2 98% BMI 26.15 kg/(m2). General:well appearing, alert and in no acute distress Skin: skin color, texture, turgor normal, no rashes or lesions HEENT: normocephalic, atraumatic, sclera non-icteric Cardiovascular: Radial pulses intact and equal Lungs: Respirations even and non-labored. GI: Soft, non-tender, non-distended. : not examined Musculoskeletal: Neck: Supple; good ROM., severe tenderness over right occipital area with pain radiates to the right pentecostal Back: No pain on palpation of the lumbar spine. Full ROM without reproducible pain. Straight leg raising test negative bilaterally. Extremities: all joints Normal Neurological: Mental Status: alert and oriented x 3 Cranial Nerves: Cranial nerves IIi-XII are grossly intact Reflexes: Deep tendon reflexes are 2+ all throughout. Motor Strength: Motor strength and tone are 5/5 all throughout. Sensory: Sensation was intact to light touch all throughout. Gait: Antalgic uses a cane. Imaging: OARRS website checked and validated. All prescriptions have been APPROPRIATELY filled. No suspicious activity was identified. - January 09, 2020 by Cesar Guerrero DO HPI AND ASSESSMENT: patient's was present during the interview and physical exam. Racheel Flores is a 59 year old female with chronic right upper posterior neck pain that radiates to the right pentecostal with occasional twitches of her right eyebrow. 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 she is currently on Trileptal and baclofen , recently started with no improvement. Recently seen Dr. Vega, who recommended evaluation for right occipital nerve RFA. Physical exam and history supports right occipital neuralgia, and I agree with occipital nerve RFA, however I do not perform this procedure, will refer her to Dr. Tom. (M54.81) Occipital neuralgia of right side (primary encounter diagnosis) PLAN: 1) Spoke with Dr. Tom who agreed to see the patient for right occipital nerve RFA 2) Continue current medications per Dr. Vega The above plan and management options were discussed at length with patient. Patient is in agreement with the above and verbalized understanding. Thank you Dr. Anjana Vega MD for allowing me to participate in Rachele Flores's care. Cesar Guerrero DO January 09, 2020 Referring Provider: ANJANA VEGA [[id number]] Allergies As of Date: 01/11/2020 Noted Allergy Reaction CIPROFLOXACIN 01/11/2020 12 - Shortness of Breath EFFEXOR (VENLAFAXINE ANALOGUES) 01/11/2020 12 - Shortness of Breath LIORESAL (BACLOFEN) 01/11/2020 5 - Intolerance MACROBID (NITROFURANTOIN MONOHYD/*01/11/2020 12 - Shortness of Breath PENICILLINS 01/11/2020 12 - Shortness of Breath Date Reviewed: 01/11/2020 Reviewed by: Cesar Guerrero - Fully Assessed Reason for Visit: Consult [502] Primary Visit Diagnosis:Occipital neuralgia of right side [M54.81] Order(s):CONSULT TO PAIN MGT [20000219] Order #: [id number]: 1 Prescriptions as of 01/11/2020 Sig: LISINOPRIL 2.5 MG TABLET Take 2.5 mg by mouth once pippa* FUROSEMIDE 40 MG TABLET Take 40 mg by mouth once alexi* ETODOLAC 500 MG TABLET Take 500 mg by mouth twice da* OMEPRAZOLE 40 MG CAPSULE,BEAR* Take 40 mg by mouth twice pippa* ESTRADIOL 0.075 MG/24 HR WEEK* Apply 1 Patch as directed two* DICLOFENAC 1 % TOPICAL GEL Apply to affected area as nee* ACETAMINOPHEN 300 MG-CODEINE * Take 1 tablet by mouth every * OXCARBAZEPINE 300 MG TABLET Take 1 tablet by mouth twice * BACLOFEN 10 MG TABLET Take 1 tablet by mouth three * Problem List As Of Date 01/11/2020 Noted Resolved Occipital neuralgia of right side [M54.81] 01/11/2020 Encounter Status:Closed by CESAR GUERRERO DO on 01/11/20 Normal [facility] MRI BRAIN WO/W IVCONon 01-11 MRI BRAIN WO/W IVCON * * *Final Report* * * DATE OF EXAM: Jan 11 2020 10:37AM [facility] 0295 - MRI BRAIN WO/W IVCON / PROCEDURE REASON: multiple diagnoses * * * * Physician Interpretation * * * * EXAMINATION: MRI BRAIN WO/W IVCON CLINICAL HISTORY: Occipital neuralgia. TECHNIQUE: Routine brain MRI protocol without and with contrast including diffusion images. MQ: [id number] Contrast: 13 mL Dotarem IV COMPARISON: None. RESULT: Acute Change: There is no evidence of restricted diffusion to suggest an acute infarct. Hemorrhage: No evidence of prior parenchymal hemorrhage on the gradient echo images. Mass Lesion/ Mass Effect: No evidence of an intracranial mass or extra-axial fluid collection. No abnormal parenchymal or leptomeningeal enhancement is noted following contrast administration. No significant mass effect. Chronic Change: Scattered patchy areas of increased T2 and FLAIR signal are present in the supratentorial white matter which is a nonspecific finding but likely represents mild chronic microvascular ischemia. Parenchyma: No significant volume loss for age. The brain parenchyma is otherwise within normal limits of signal intensity and morphology. Ventricles: Normal caliber and morphology. Skull Base: Hypothalamic and pituitary region are grossly normal. Craniocervical junction is normal. No significant marrow replacement process. Vasculature: Major intracranial arterial structures, and dural venous sinuses show typical flow void, suggesting patency by spin echo criteria. Other: The visualized paranasal sinuses and mastoid air cells are clear. The orbits and extracranial soft tissues are unremarkable. IMPRESSION: NONSPECIFIC SMALL FOCI OF HIGH T2 SIGNAL INTENSITY SEEN INVOLVING THE WHITE MATTER, LIKELY REPRESENTING MILD CHRONIC MICROVASCULAR ISCHEMIC CHANGES. OTHERWISE, UNREMARKABLE MRI BRAIN WITH AND WITHOUT CONTRAST. State Director: [facility] Transcribe Date/Time: Jan 11 2020 10:56A Dictated by : PENELOPE BLANCAS MD This examination was interpreted and the report reviewed and electronically signed by: PENELOPE BLANCAS MD on Jan 11 2020 10:57AM EST [id number] Normal [facility] PROGRESSon 01-11-2020 PROGRESS HNO ID: [id number] Author: Ruthann Crowley (Tech) Service: ? Author Type: Regional Property Manager Type: Progress Notes Filed: 01/11/2020 10:37 AM Note Text: Radiology Service Progress Note DATE OF SERVICE: January 11, 2020 TIME: 10:29 AM PATIENT IDENTITY VERIFICATION COMPLETED USING TWO (2) STANDARD IDENTIFIERS: Name and Date of confirmed by patient verbally. PATIENT GENDER DATA: Female. status: : No status: NO. PATIENT RELEVANT IMPLANT DATA REVIEWED: Yes ALLERGIES: Reviewed and unchanged CONTRAST ALLERGY: NO. EXAM: MRI - CONTRAST TYPE: GROUP II PERIPHERAL IV DATA: Ambulatory: A peripheral IV was started in the Right antecubital site with a Butterfly: 23 gauge. RADIOLOGY DEPARTMENT: MR; Exam(s) Completed: Head: Routine Brain SIGNATURE: Ruthann Crowley PATIENT NAME: Rachele Flores DATE: January 11, 2020 TIME: 10:29 AM Normal [facility] PROGRESS HNO ID: [id number] Author: Cesar Guerrero Service: ? Author Type: Physician Type: Progress Notes Filed: 01/11/2020 10:29 AM Note Text: [facility] Initial Evaluation January 11, 2020 This appointment was requested by Adelia Vega, for my medical opinion regarding? the evaluation and management of the patient's Rachele Flores problems, and my final recommendations will be communicated to the requesting health care provider by way of the shared medical record for internal providers or letter via the [employer] for external providers. SUBJECTIVE: Rachele Flores a 59 year old presents to [facility] Pain Management Department, accompanied by spouse, Rik, was referred by Adelia Vega, for an initial evaluation for head pain The pain is located in the head base of skull and radiates around anterior neck above the ear along anterior aspect and posterior aspect to the level of ear Distribution: Head, neck ear Started several years ago, was not directly related to injury/trauma, and symptoms have been worsening. Characterized as aching, sharp and shooting Currently the pain is a rated at a 9 on a scale of 0-10. Worst pain score is rated at 10 on a scale of 0-10. Best pain score is rated at 4 on a scale of 0-10. Aggravated by sudden head movements Mitigated by ice , heat and stretching . Current treatments and response: PT Stretches (+) little relief Voltaren gel (+) little relief Tylenol # 3 PRN (+) relief Uses sparsely Response to previous treatments: Occipital nerve blocks - one day relief Dexamethasone (helped temporarily) Flexeril (mostly for RLS at night) Tramadol- uses for her arthritis Tylenol 3- takes infrequently Gabapentin (didn't help) Amitryptiline (didn't help) Lyrica (didn't help) Voltaren gel (didn't help) Zanaflex (didn't help) PT Dr Natalee Keene 2018 (+) relief Alcohol Abuse - No Drug Abuse - No Current Anticoagulant Therapy: No Sleep Disturbance: Yes: Difficulty falling asleep. and Difficulty staying asleep. PAST MEDICAL HISTORY Diagnosis Date - Arthritis - HTN (hypertension) - Occipital neuralgia of right side mild on left No past surgical history on file. Social History Tobacco Use - Smoking status: Former Smoker - Smokeless tobacco: Never Used Substance Use Topics - Alcohol use: Yes Frequency: 2-4 times a month - Drug use: Never No family history on file. ALLERGIES No Known Allergies Current Outpatient Medications Medication Sig - lisinopril 2.5 mg tablet Take 2.5 mg by mouth once daily. - furosemide (LASIX) 40 mg tablet Take 40 mg by mouth once daily. - Etodolac 500 mg tablet Take 500 mg by mouth twice daily. - Omeprazole 40 mg capsule Take 40 mg by mouth twice daily. - estradiol (CLIMARA) 0.075 mg/24 hr Apply 1 Patch as directed two times a week. - diclofenac sodium (VOLTAREN) 1 % topical gel Apply to affected area as needed. - acetaminophen-codeine (TYLENOL-CODEINE #3) 300-30 mg per tablet Take 1 tablet by mouth every 4 hours as needed. - OXcarbazepine (TRILEPTAL) 300 mg tablet Take 1 tablet by mouth twice daily. - baclofen (LIORESAL) 10 mg tablet Take 1 tablet by mouth three times daily as needed. No current facility-administered medications for this visit. Review of Symptoms: GENERAL:No weight loss, malaise or fevers., SEE HPI HEENT:Negative for frequent or significant headaches, No changes in hearing or vision, no nose bleeds or other nasal problems NECK:Negative for lumps, goiter, pain and significant neck swelling RESPIRATORY: Negative for cough, wheezing or shortness of breath. CARDIOVASCULAR: Negative for chest pain,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 10-02-2022 Encounter for preprocedural cardiovascular examination [facility] Start: 10-02-2022 Encounter for preprocedural laboratory examination [facility] Start: 09-28-2022 End: 09-29-2022 ambulatory [facility] Facility:[facility] Start: 09-28-2022 End: 09-29-2022 Encounter for preprocedural cardiovascular examination [facility] Kev [facility] Facility:[facility] Start: 09-15-2022 End: 09-16-[address] CARLITOS VANEGAS Facility:[facility] Start: 08-05-2022 End: 08-06-[address] LOC DELACRUZ Facility:[facility] Start: 05-27-2022 End: 05-27-2022 ambulatory Nazanin Valladares Other [facility] Other Start: 05-27-2022 Office outpatient vi sit 15 minutes Nazanin Valladares [facility] Start: 05-07-2022 End: 05-07-2022 ambulatory Aneesh Tereso Other [facility] Other Start: 05-07-2022 Office outpatient vi sit 25 minutes Aneesh Tereso [facility] Start: 05-07-2022 Telephone encounter Aneesh Tereso [facility] Start: 04-20-2022 End: 04-20-2022 ambulatory Aneesh Tereso Other [facility] Other Start: 04-20-2022 Office outpatient vi sit 15 minutes Aneesh Tereso [facility] Start: 04-13-2022 (Procedure) Short Aneesh Tereso [facility] Start: 04-13-2022 End: 04-13-2022 ambulatory Aneesh Rider Other [facility] Other Start: 04-02-2022 End: 04-02-2022 ambulatory Aneesh Rider Other [facility] Other Start: 04-02-2022 Office outpatient vi sit 25 minutes Aneesh Tereso [facility] Start: 12-22-2021 End: 12-22-2021 ambulatory Aneeshqi Rider Other [facility] Other Start: 12-22-2021 Office outpatient vi sit 15 minutes Aneesh Tereso [facility] Start: 11-19-2021 (Procedure) [place] Aneesh Rider [facility] Start: 11-19-2021 End: 11-19-2021 ambulatory Aneesh Rider Other [facility] Other Start: 10-29-2021 (Procedure) [place] Aneesh Rider [facility] Start: 10-29-2021 End: 10-29-2021 ambulatory Aneesh Rider Other [facility] Other Start: 09-30-2021 End: 09-30-2021 ambulatory Prema Brendan Other [facility] Other Start: 09-30-2021 Telephone encounter Prema Brendan [facility] Start: 09-29-2021 End: 09-29-2021 ambulatory Prema Brendan Other [facility] Other Start: 09-29-2021 Telephone encounter Prema Brendan [facility] Start: 09-24-2021 End: 09-24-2021 ambulatory Prema Brendan Other [facility] Other Start: 09-24-2021 Office outpatient vi sit 25 minutes Prema Dominguezz [facility] Start: 09-10-2021 (Procedure) Short Aneesh Rider [facility] Start: 08-25-2021 (Procedure) Short Aneesh Rider [facility] Start: 08-18-2021 Telephone encounter Aneesh Rider [facility] Start: 08-14-2021 Office outpatient vi sit 25 minutes Aneesh Rider [facility] Procedures Date Procedure Procedure Detail Performing Clinician Start: 09-26-2024 Mammography Cyndi small [employer] Work Phone: Start: 12-26-2023 Radiologic examinati on knee 1/2 views Judd Wheeler [employer]AR Work Phone: Start: 07-21-2023 Mammography Judd johnson [employer] Work Phone: Start: 06-29-2023 End: 02-28-2025 H/O: hysterectomy H/O: hysterectomy Judd Wheeler NP Work Phone: Screening for malign ant neoplasm of breast Vadim Clemente Other Plan of Treatment Date Care Activity Detail Author Start: 09-26-2025 Screening for malignant neoplasm of breast Mammogram [facility] Start: 07-15-2025 Influenza vaccination Influenza Vaccine (Season Ended) [facility] Start: 05-30-2025 End: 05-30-2025 Patient encounter procedure 05/30/2025 9:00 AM EDT Office Visit [facility] [address] [place] [id number] Dian Soriano NP [address] [place] [phone] [facility] Start: 05-20-2025 End: 03-20-2026 Thyrotropin [Units/volume] in Serum or Plasma TSH Lab Routine Adult hypothyroidism (CMS/HCC) Expected: 05/20/2025 (Approximate), Expires: 03/20/2026 [facility] Work Phone: Comment on above: Expected: 05/20/2025 (Approximate), Expi res: 03/20/2026 Start: 05-20-2025 End: 03-20-2026 Thyroxine (T4) free [Mass/volume] in Serum or Plasma T4, free Lab Routine Adult hypothyroidism (CMS/HCC) Expected: 05/20/2025 (Approximate), Expires: 03/20/2026 [facility] Comment on above: Expected: 05/20/2025 (Approximate), Expi res: 03/20/2026 Start: 02-28-2025 End: 02-28-2026 Thyrotropin [Units/volume] in Serum or Plasma TSH Lab Routine Adult hypothyroidism (CMS/HCC) Expected: 02/28/2025 (Approximate), Expires: 02/28/2026 [facility] Work Phone: Comment on above: Expected: 02/28/2025 (Approximate), Expi res: 02/28/2026 Start: 02-28-2025 End: 02-28-2026 Thyroxine (T4) free [Mass/volume] in Serum or Plasma T4, free Lab Routine Adult hypothyroidism (CMS/HCC) Expected: 02/28/2025 (Approximate), Expires: 02/28/2026 [facility] Comment on above: Expected: 02/28/2025 (Approximate), Expi res: 02/28/2026 Start: 02-28-2025 End: 02-28-2026 Triiodothyronine (T3) Free [Mass/volume] in Serum or Plasma T3, free Lab Routine Adult hypothyroidism (CMS/HCC) Expected: 02/28/2025 (Approximate), Expires: 02/28/2026 [facility] Comment on above: Expected: 02/28/2025 (Approximate), Expi res: 02/28/2026 Start: 02-28-2025 End: 02-28-2025 Patient encounter procedure [facility] Comment on above: Primary hypertension (CMS/HCC) (Primary Dx); Gastroesophageal reflux disease, unspecified whether esophagitis present; Osteopenia, unspecified location; Severe anxiety with panic (CMS/HCC); Adult hypothyroidism (CMS/HCC); Irritable bowel syndrome with both constipation and diarrhea; Colon cancer screening Start: 01-10-2025 End: 11-29-2025 TSH W/REFLEX TO FT4 TSH W/REFLEX TO FT4 Lab Routine TSH elevation Expected: 01/10/2025 (Approximate), Expires: 11/29/2025 [facility] Work Phone: Comment on above: Expected: 01/10/2025 (Approximate), Expi res: 11/29/2025 Start: 12-03-2024 End: 12-03-2024 Patient encounter procedure 12/03/2024 9:00 AM EST Office Visit [facility] [address] [place] [address] Cyndi Piper, N[place] [address] [place] [address] [facility] Start: 11-19-2024 Screening for malignant neoplasm of colon Colorectal Cancer Screening [facility] Comment on above: Postponed from 1962 (Other Patient Reasons) Start: 10-04-2024 End: 08-20-2025 TSH W/REFLEX TO FT4 TSH W/REFLEX TO FT4 Lab Routine TSH elevation Expected: 10/04/2024 (Approximate), Expires: 08/20/2025 [facility] Work Phone: Comment on above: Expected: 10/04/2024 (Approximate), Expi res: 08/20/2025 Start: 08-06-2024 End: 08-06-2025 CBC W Auto Differential panel - Blood CBC and differential Lab Routine Wellness examination Primary hypertension (CMS/HCC) Expected: 08/06/2024 (Approximate), Expires: 08/06/2025 [facility] Comment on above: Expected: 08/06/2024 (Approximate), Expi res: 08/06/2025 Start: 08-06-2024 End: 08-06-2025 Comprehensive metabolic 2000 panel - Serum or Plasma Comprehensive metabolic panel Lab Routine Wellness examination Primary hypertension (CMS/HCC) Expected: 08/06/2024 (Approximate), Expires: 08/06/2025 [facility] Comment on above: Expected: 08/06/2024 (Approximate), Expi res: 08/06/2025 Start: 08-06-2024 End: 08-06-2025 Hemoglobin A1c/Hemoglobin.total in Blood Hemoglobin A1c Lab Routine Wellness examination Expected: 08/06/2024 (Approximate), Expires: 08/06/2025 [facility] Comment on above: Expected: 08/06/2024 (Approximate), Expi res: 08/06/2025 Start: 08-06-2024 End: 08-06-2025 Lipid 1996 panel - Serum or Plasma Lipid panel Lab Routine Wellness examination Expected: 08/06/2024 (Approximate), Expires: 08/06/2025 [facility] Comment on above: Expected: 08/06/2024 (Approximate), Expi res: 08/06/2025 Start: 08-06-2024 End: 08-06-2025 TSH W/REFLEX TO FT4 TSH W/REFLEX TO FT4 Lab Routine Wellness examination Primary hypertension (CMS/HCC) Expected: 08/06/2024 (Approximate), Expires: 08/06/2025 [facility] Work Phone: Comment on above: Expected: 08/06/2024 (Approximate), Expi res: 08/06/2025 Start: 08-06-2024 End: 08-06-2024 Patient encounter procedure 08/06/2024 10:00 AM EDT Office Visit [facility] [address] [place] [address] Cyndi Piper NP [address] [place] [address] [facility] Comment on above: Arrived Start: 07-21-2024 Screening for malignant neoplasm of breast Mammogram [facility] Start: 07-15-2024 Influenza vaccination Influenza Vaccine (#1) [facility] Start: 07-04-2024 End: 07-04-2024 Patient encounter procedure 07/04/2024 10:00 AM EDT Office Visit [facility] [address] [place] [address] Judd Wheelre NP [address] [place] [place] [address] [facility] Start: 12-26-2023 End: 12-26-2023 Patient encounter procedure 12/26/2023 9:15 AM EST [facility] [address] [facility] [address] [facility] [place] [phone] Judd Wheeler NP [address] [place] [address] Primary osteoarthritis of left knee; Status post left knee replacement [facility] Comment on above: Primary osteoarthritis of left knee; Status post left knee replacement Start: 03-03-2023 [facility] Start: 11-25-2022 Screening for malignant neoplasm of cervix [facility] Start: 1983 Screening for malignant neoplasm of cervix Pap Smear [facility] Start: 1960 Screening for malignant neoplasm of colon [facility] Atopobium vaginae DN A [Presence] in Vaginal fluid by LARRY with probe detection [facility] Bacterial vaginosis associated bacterium 2 DNA [Presence] in Vaginal fluid by LARRY with probe detection [facility] Megasphaera sp type 1 DNA [Presence] in Vaginal fluid by LARRY with probe detection [facility] Immunizations Immunization Date Immunization Notes Care Provider Fa [facility] 11-10-2023 influenza, injectable, quadrivalent, preservative free Dian Soriano [employer] Work Phone: [facility] 11-10-2023 influenza virus vaccine, unspecified formulation Cyndi Piper [employer] Work Phone: [facility] 09-27-2021 influenza, injectable, quadrivalent, preservative free Judd Wheeler [employer] Work Phone: [facility] 08-27-2020 influenza, injectable, quadrivalent, contains preservative Judd Wheeler [employer] Work Phone: [facility] 11-21-2019 seasonal influenza, intradermal, preservative free Judd Wheeler [employer] Work Phone: [facility] 09-14-2018 seasonal influenza, intradermal, preservative free Judd Wheeler [employer]AR Work Phone: [facility] 08-05-2017 Kenalog -40 mg Aneesh Rider Other [employer] Other 11-23-2012 influenza, injectable, quadrivalent, preservative free Judd Wheeler [employer]AR Work Phone: [facility] Payers Date Payer Category Payer Private Health Insurance [facility] [id number] 2023 Unknown [facility] [id number] 2023-Present [address] [place] [id number] 2023 Medicaid [id number] [id number] 2023 Self-pay [id number] 1962 Unknown [id number] 2.16.840.1.229434.3.579. 2.593 1962 Unknown [id number] 2.16.840.1.239709.3.579. 2.593 1962 Unknown [id number] 2.16.840.1.654348.3.579. 2.593 1962 Unknown [id number] 2.16.840.1.639708.3.579. 2.593 1962 Unknown [id number] 2.16.840.1.091054.3.579. 2.593 1962 Unknown [id number] 2.16.840.1.173532.3.579. 2.593 1962 Unknown [id number] 2.16.840.1.212498.3.579. 2.593 1962 Unknown [id number] 2.16.840.1.928030.3.579. 2.593 1962 Unknown [id number] 2.16.840.1.633336.3.579. 2.593 1962 Unknown [id number] 2.16.840.1.508351.3.579. 2.593 1962 Unknown [id number] 2.16.840.1.553516.3.579. 2.1259 1962 Unknown [id number] 2.16.840.1.145074.3.579. 2.1259 1962 Unknown [id number] 2.16.840.1.090541.3.579. 2.1259 1962 Unknown [id number] 2.16.840.1.647912.3.579. 2.1259 1962 Unknown [id number] 2.16.840.1.182785.3.579. 2.1259 1962 Unknown [id number] 2.16.840.1.834152.3.579. 2.727 1962 Unknown [id number] 2.16.840.1.663910.3.579. 2.727 1959 [facility] [id number] [id number] Unknown [id number] 2.16.840.1.913490.3.579. 2.531 Social History Date Type Detail Facility Unknown if ever smoked [facility] Other Start: 06-29-2023 End: 07-30-2024 Sex Assigned At [facility] Start: 05-01-2020 End: 08-06-2024 Tobacco smoking status NHIS Ex-smoker (finding) [facility] Start: 1960 Sex Assigned At Female [facility] End: 11-14-1995 History of tobacco use Current smoker [facility] End: 11-14-1995 History of tobacco use Cigarette Smoker [facility] Start: 06-29-2023 End: 08-06-2024 Tobacco use and exposure Smokeless tobacco non-user [facility] Start: 06-29-2023 End: 02-28-2025 Alcohol intake Current drinker of alcohol (finding) [facility] Start: 06-29-2023 End: 07-30-2024 Alcohol intake [facility] Start: 06-22-2023 Gender identity Identifies as female gender (finding) [facility] Start: 06-22-2023 Sexual orientation Heterosexual (finding) [facility] History of tobacco use Passive smoker [facility] How often do you nee d to have someone help you when you read instructions, pamphlets, or other written material from your doctor or pharmacy [SILS] Never [facility] Are you now , , , , never or living with a partner? [facility] How often to you hav e a drink containing alcohol? 2-4 times a month [facility] How many standard drinks containing alcohol do you have on a typical day? 1 or 2 [facility] How often do you hav e 6 or more drinks on 1 occasion? Never [facility] Do you feel stress - tense, restless, nervous, or anxious, or unable to sleep at night because your mind is troubled all the time - these days [OSQ] Very much [facility] (I/We) worried wheth er (my/our) food would run out before (I/we) got money to buy more. Never true [facility] In the past 12 month s, was there a time when you were not able to pay the mortgage or rent on time? No [facility] Start: 01-30-2024 Alcohol Comment caffeine: 1-2 cups per day coffee [facility] Medical Equipment Procedure Code Equipment Code Equipment Origin al Text Equipment Identifier Dates Arthroplasty, knee, total, minimally invasive Orthopaedic bone screw, non-bioabsorbable, sterile [id number] FDA Start: 05-01-2020 Arthroplasty, knee, total, minimally invasive Uncoated knee femur prosthesis ()[id number] FDA Start: 05-01-2020 Arthroplasty, knee, total, minimally invasive Tibial insert ()[id number] FDA Start: 05-01-2020 Arthroplasty, knee, total, minimally invasive Uncoated knee tibia prosthesis, metallic ()[id number] FDA Start: 05-01-2020 Arthroplasty, knee, total, minimally invasive Polyethylene patella prosthesis ()[id number] FDA Start: 05-01-2020 Clinical Notes 08-14-2021 to 03-12-2025 Dian Soriano NP - 02/28/2025 9:44 AM FANNY FRANKLIN - 02/28/2025 9:00 AM Violet Soriano NP - 02/28/2025 9:00 AM Violet Soriano NP - 02/28/2025 6:16 AM EDTPatient Instructions Note Date & Type Note Facility 03-12-2025 Note General Surgery Offi ce/Clinic Note Chief Complaint consultation for colonoscopy HPI Staff 64 year old female presents on consultation from Dian Soriano for screening colonoscopy. Denies abdominal or rectal pain. No rectal bleeding or change in bowel habits. Denies nausea, vomiting or weight loss. Patient with history of Laurence-en-y in 1999. Never had colonoscopy in the past. No known family history of colon cancer. History of Present Illness 64 yo male with h/o htn, hypothyroidism, GERD, ANNA, depression, osteopenia, tremor, referred for colorectal screening; denies change in bms or blood in stools, no abd complaints; abd operations significant for laurence-en-y gasric bypass, cholecystectomy, tubal ligation, hysterectomy; no previous colonoscopy; no asa or NSAID use; former smoker, no fmhx of GI malignancy or IBD. Review of Systems PHQ Score Initial Depression Screen Score: 0 SCORE ROS - Provider Constitutional: no fever, no sweats, no weight loss. Eyes: yes glasses, no blurred vision, no visual loss. ENMT: no dentures, no hoarseness, no swallowing difficulties, no hearing loss, no ear infection(s), no nose bleeds. Cardiovascular: normal blood pressure, no chest pain, regular heartbeat, no heart murmur. Respiratory: no shortness of breath, no cough, no asthma, no wheezing. Gastrointestinal: no nausea, no vomiting, no diarrhea, no constipation, no blood in stool, no change in bowel habits, no abdominal pain, no hepatitis. Genitourinary: no kidney stones, no urine infection, no dysuria. Musculoskeletal: no pain, no weakness. Skin: no changing moles, no rash, no skin lumps. Neurologic: no seizures, no epilepsy, no headache. Psychiatric: no emotional or psychiatric problem. Heme/Lymph: no bleeding problems, no anemia, no blood clots, no transfusions. Allergy/Immunologic: no swollen lymph nodes/glands, no IV drug abuse. Other: Additional ROS info: Except as noted in the above Review of Systems and in the History of Present Illness, all other systems have been reviewed and are negative or noncontributory. Physical Exam Vitals & Measurements HR: 78(Peripheral) RR: 16 BP: 121/79 HT: 157.4 cm HT: 62 in WT: 71.6 kg WT: 157.851 lb BMI: 28.9 HEENT: normal conjunctiva, sclera clear, no scleral icterus, EOM intact, PERRLA, oral mucosa moist without lesions. Neck: trachea midline, no mass, symmetric, no thyromegaly or nodules, no adenopathy Respiratory: lungs CTA, respirations non labored. Cardiovascular: regular rate and rhythm, no murmur, no pedal edema or varicosities. Gastrointestinal: soft, non distended, no tenderness, no masses, no palpable hernias, diastasis recti no, no hepatosplenomegaly; normal bs Lymphatic: no cervical adenopathy, no supraclavicular adenopathy. Musculoskeletal: normal gait, digits and nails without infection, nodes, cyanosis, clubbing. Skin: no rashes, no lesions, no ulcers, no subcutaneous nodules, induration. Psychiatric/Neuro: oriented to time, place, person, judgement normal, affect appropriate for age, insight intact, no focal deficits. Tests: , review of old records completed , Discussed surgical options, risks, and possible complications with patient. Assessment/Plan 1. Screening for malignant neoplasm of colon (Z12.11: Encounter for screening for malignant neoplasm of colon) plan colonoscopy under anesthesia, informed consent obtained. Follow-up No qualifying data available Problem List/Past Medical History Ongoing BMI 28.0-28.9,adult Cervico-occipital neuralgia Depression Essential hypertension Generalized anxiety disorder GERD (gastroesophageal reflux disease) Hypothyroidism Irritable bowel syndrome Osteopenia Overweight Screening for malignant neoplasm of colon Tremor Historical No qualifying data Procedure/Surgical History Laurence-en-y gastric bypass (1999), Abdominal hysterectomy, Arthrodesis, Arthroplasty of left knee, Cholecystectomy, Colposcopy, Evacuation of thrombosed hemorrhoid, Radiofrequency ablation of medial branch of cervical nerve using fluoroscopic guidance, Tubal ligation. Medications alprazolam 0.25 mg Tab, 0.25 mg= 1 tab(s), Oral, Daily, PRN atenolol 50 mg Tab, 50 mg= 1 tab(s), Oral, Daily busPIRone 10 mg Tab, 10 mg= 1 tab(s), Oral, Daily cyclobenzaprine 10 mg Tab, 40 mg= 4 tab(s), Oral, Bedtime, PRN Estrace 2 mg Tab, 2 mg= 1 tab(s), Oral, Daily Fosamax 70 mg Tab, 70 mg= 1 tab(s), Oral, qWeek Lasix 40 mg Tab, 40 mg= 1 tab(s), Oral, Daily levothyroxine 50 mcg (0.05 mg) Tab, 50 mcg= 1 tab(s), Oral, Daily MiraLax, 17 gm, Oral, Daily omeprazole 40 mg Cap-DR, 40 mg= 1 cap(s), Oral, BID Reglan 5 mg Tab, 5 mg= 1 tab(s), Oral, QIDACHS traMADOL 50 mg Tab, as directed Allergies Cipro (SOB - Shortness of breath, Angioedema) nitrofurantoin (SOB - Shortness of breath, Rash) venlafaxine (increased anxiety) Social History Alcohol Current. Wine. 1-2 times per week., 03/07/2025 Substance Abuse Never., 03/07/2025 Tobacc (more content not included)... [facility] Comment on above: Result Comment: Elec tronically Signed By: VI ALMARAZ, Lai Marsh\Date and Time Signed: 03/12/25 15:09 EDT 02-28-2025 History of Present illness Narrative Associated Problem(s): Osteoarthritis of left knee Asking for medrol dose pack, took it about a year ago helped, cannot get into see ortho for a few months Advised to monitor for GI bleeding Pt has increased 20lbs since last visit. Pt was supprised she knew she had gained weight but not that much Pt states her thyroid medication was increased from 25 to 50mcg however she does still feel sluggish and fatigue Pt would like to take 2 of her 25mcg's instead of the 1 50. Pt had a complete left knee replacement and has been having swelling she is on week 2. She rides bike for 80min Images from the original note were not included. Rachele Flores is a 64 y.o. female presents with chief complaint of Hypothyroidism HPI: Anxiety Presents for follow-up visit. Symptoms include excessive worry, irritability, muscle tension and nervous/anxious behavior. Patient reports no chest pain, depressed mood, dizziness, insomnia, nausea, palpitations, shortness of breath or suicidal ideas. Symptoms occur most days. The severity of symptoms is interfering with daily activities (mild-moderate). The patient sleeps 8 hours per night. The quality of sleep is fair. Nighttime awakenings: several. Compliance with medications is 76-100%. Thyroid Problem Presents for follow-up visit. Symptoms include anxiety, constipation, fatigue, hoarse voice and weight gain. Patient reports no depressed mood, diarrhea, hair loss, palpitations or tremors. Knee Pain The pain is present in the left knee. The quality of the pain is described as aching (sharp). The pain is moderate. The pain has been Constant since onset. Associated symptoms include an inability to bear weight. She reports no foreign bodies present. The symptoms are aggravated by movement and weight bearing. She has tried ice for the symptoms. The treatment provided mild relief. Hypertension This is a chronic problem. The current episode started more than 1 year ago. The problem is unchanged. The problem is controlled. Associated symptoms include anxiety. Pertinent negatives include no chest pain, headaches, palpitations, peripheral edema or shortness of breath. Risk factors for coronary artery disease include sedentary lifestyle. Past treatments include beta blockers. The current treatment provides significant improvement. There are no compliance problems. Identifiable causes of hypertension include a thyroid problem. SUBJECTIVE: MEDICATIONS: Current Outpatient Medications Medication Instructions alendronate (FOSAMAX) 70 mg, Oral, Every 7 days, Take in the morning with a full glass of water, on an empty stomach, and do not take anything else by mouth or lie down for the next 30 min. ALPRAZolam (XANAX) 0.25 mg, Oral, Nightly PRN atenolol (TENORMIN) 50 mg, Oral, Daily busPIRone (BUSPAR) 15 mg, 2 times daily cyclobenzaprine (Flexeril) 10 MG tablet TAKE 4 TABLETS BY MOUTH AT BEDTIME estradiol (ESTRACE) 2 mg, Oral, Daily, Take 1 tablet by mouth for 30 days furosemide (LASIX) 40 mg, Oral, Daily levothyroxine (SYNTHROID, LEVOXYL) 50 mcg, Oral, Daily methylPREDNISolone (Medrol Dospak) 4 MG tablets Take with food, Follow schedule on package instructions metoclopramide (REGLAN) 5 mg, Oral, 4 times daily omeprazole (PRILOSEC) 40 mg, 2 times daily polyethylene glycol, PEG, 3350 (MiraLax) 17 g packet Every 24 hours traMADol (Ultram) 50 MG tablet ALLERGIES: Allergies Allergen Reactions Ciprofloxacin Shortness of breath and Angioedema Other Reaction(s): ? angioedema Other Reaction(s): felt strange Nitrofurantoin Rash and Shortness of breath Other Reaction(s): felt strange Venlafaxine Shortness of breath Other Reaction(s): worsening anxiety Other Reaction(s): felt strange, worsening anxiety Baclofen Other Reaction(s): Intolerance REVIEW OF SYMPTOMS: Review of Systems Constitutional: Positive for fatigue, irritability and weight gain. Negative for appetite change, chills and fever. HENT: Positive for hoarse voice. Negative for congestion, ear pain and sore throat. Eyes: Negative for pain, discharge, redness and visual disturbance. Respiratory: Negative for cough, shortness of breath and wheezing. Cardiovascular: Negative for chest pain, palpitations and leg swelling. Gastrointestinal: Positive for constipation. Negative for abdominal pain, blood in stool, diarrhea, nausea and vomiting. Genitourinary: Negative for difficulty urinating, dysuria and frequency. Musculoskeletal: Negative for arthralgias, back pain, joint swelling and myalgias. Skin: Negative for rash and wound. Neurological: Negative for dizziness, tremors, seizures, syncope and headaches. Psychiatric/Behavioral: Negative for behavioral problems, self-injury and suicidal ideas. The patient is nervous/anxious. The patient does not have insomnia. Hematological: Does not bruise/bleed easily. Endocrine: Negative for polydipsia, polyphagia and polyuria. Allergic/Immunologic: Negative for environmental allergies and food allergies. PAST MEDICAL HISTORY Past Medical History: Diagnosis Date Abnormal electrocardiogram (ECG) (EKG) Acute cystitis with hematuria Allergic rhinitis Anxiety disorder Atopic dermatitis Bariatric surgery status Bursitis of hip Cataract Depression (CMS/HCC) Dysuria Elevated blood pressure reading Episodic paroxysmal anxiety disorder (CMS/HCC) Essential (primary) hypertension (CMS/HCC) External hemorrhoid Eyelid eczema Female stress incontinence Fibromyalgia Foot pain Rashaun hematuria GERD (gastroesophageal reflux disease) Interstitial cystitis Lack of concentration Lateral epicondylitis, right elbow Menopause Muscle cramps Occipital neuralgia Palpitations Perianal itch Plantar fasciitis Post-menopausal Primary osteoarthritis, left ankle and foot Primary osteoarthritis, left hand Primary osteoarthritis, right hand Thrombosed external hemorrhoid Tremor Tremor, unspecified TSH elevation Past Surgical History: Procedure Laterality Date ARTHRODESIS Left 09/2020 arthrodesis LT foot/ [facility] BARIATRIC SURGERY 1999 CHOLECYSTECTOMY 1992 COLPOSCOPY biopsy cervix - EXCISIONAL HEMORRHOIDECTOMY 10/2015 excision thrombosed hemorrhoid EXCISIONAL HEMORRHOIDECTOMY 10/16/2015 thrombosed hemorrhoid LT lateral - [facility] GASTRIC BYPASS [place] - Y procedure, HYSTERECTOMY 1999 LASER ABLATION Right 04/2020 occipital cervical ablation- [facility] TOTAL KNEE ARTHROPLASTY Left 05/01/2020 Dr Quesada TUBAL LIGATION 1992 family history includes Alcohol abuse in her brother; Anxiety disorder in her son; Arthritis in her sister; Depression in her daughter; Diabetes in her brother and sister; Heart disease in her father; Hypertension in her father and sister; MVA in her mother; Migraines in her daughter; Morbid obesity in her sister; Sexual abuse in her brother and sister. OBJECTIVE: Visit Vitals BP 116/82 (BP Location: Left arm, Patient Position: Sitting, BP Cuff Size: Adult long) Pulse 84 Temp 98.8 F (Temporal) Resp 18 Wt 162 lb 6.4 oz SpO2 98% BMI 29.70 kg/m OB Status Hysterectomy Smoking Status Former BSA 1.8 m Physical Exam Vitals and nursing note reviewed. Constitutional: General: She is not in acute distress. Appearance: Normal appearance. She is not ill-appearing. HENT: Head: Normocephalic and atraumatic. Right Ear: External ear normal. Left Ear: External ear normal. Nose: Nose normal. Mouth/Throat: Mouth: Mucous membranes are moist. Eyes: Extraocular Movements: Extraocular movements intact. Conjunctiva/sclera: Conjunctivae normal. Neck: Vascular: No carotid bruit. Cardiovascular: Rate and Rhythm: Normal rate and regular rhythm. Pulses: Normal pulses. Heart sounds: Normal heart sounds. Pulmonary: Effort: Pulmonary effort is normal. Breath sounds: Normal breath sounds. No wheezing or rhonchi. Abdominal: General: Bowel sounds are normal. There is no distension. Palpations: Abdomen is soft. There is no mass. Tenderness: There is no abdominal tenderness. Musculoskeletal: Cervical back: Normal range of motion and neck supple. Right lower leg: No edema. Left lower leg: No edema. Comments: Swelling and pain to left knee, no erythema or calf tenderness Lymphadenopathy: Cervical: No cervical adenopathy. Skin: General: Skin is warm and dry. Capillary Refill: Capillary refill takes 2 to 3 seconds. Findings: No rash. Neurological: General: No focal deficit present. Mental Status: She is alert and oriented to person, place, and time. Psychiatric: Mood and Affect: Mood normal. Behavior: Behavior normal. Thought Content: Thought content normal. Judgment: Judgment normal. ASSESSMENT AND PLAN: Follow up in about 3 months (around 05/30/2025) for Recheck. Problem List Items Addressed This Visit GERD (gastroesophageal reflux disease) Recommendations: freq small meals, nothing to eat or drink at least 2 hours prior to bed, limit caffeine, alcohol, as well as spicy food Meds to limit or avoid if possible: NSAIDS Elevate HOB if possible Meds: omeprazole Severe anxiety with panic (CMS/HCC) - Primary PHQ 9=5 ANNA 7=11 Current meds: xanax, buspar, Med Agreement: 02/28/25 Has trialed several SSRI, SNRI, and sensative to side effects Primary hypertension (CMS/HCC) Please check blood pressure daily and record DASH diet Limit caffeine Take medication as directed Contact office if chest pain, pressure, dizziness, shortness of breath, swelling legs Recommend slow position changes Current meds: b sarah Osteoarthritis of left knee Asking for medrol dose pack, took it about a year ago helped, cannot get into see ortho for a few months Advised to monitor for GI bleeding Relevant Medications methylPREDNISolone (Medrol Dospak) 4 MG tablets Adult hypothyroidism (CMS/HCC) Current medication: levothyroxine Check labs yearly and prn dose changes or changes in symptoms Relevant Orders TSH T4, free T3, free Osteopenia Current meds: fosamax Condition is managed by DEVELOPMENT TRAINER DEXA 03/19/24: -2.2 Irritable bowel syndrome with both constipation and diarrhea Healthy diet, manage stressors Does have: reglan, Omeprazole, as well as Miralax Colon cancer screening Colon cancer screening options were discussed with patient, as well as why colon cancer screening is indicated. Options are Colonoscopy: direct visualization, every 10 years (unless indicated more frequently), risks and benefits were discussed Cologuard: every 3 years, risks and benefits were discussed , contraindications were discussed (family hx of colon cancer, colon polyps) Patient has elected to: Relevant Orders Ambulatory referral to General Surgery Associated Problem(s): Colon cancer screening Colon cancer screening options were discussed with patient, as well as why colon cancer screening is indicated. Options are Colonoscopy: direct visualization, every 10 years (unless indicated more frequently), risks and benefits were discussed Cologuard: every 3 years, risks and benefits were discussed , contraindications were discussed (family hx of colon cancer, colon polyps) Patient has elected to: Associated Problem(s): Irritable bowel syndrome with both constipation and diarrhea Healthy diet, manage stressors Does have: reglan, Omeprazole, as well as Miralax Associated Problem(s): Adult hypothyroidism (CMS/HCC) Current medication: levothyroxine Check labs yearly and prn dose changes or changes in symptoms Associated Problem(s): Severe anxiety with panic (CMS/HCC) PHQ 9=5 ANNA 7=11 Current meds: xanax, buspar, Med Agreement: 02/28/25 Has trialed several SSRI, SNRI, and sensative to side effects Associated Problem(s): Osteopenia Current meds: fosamax Condition is managed by DEVELOPMENT TRAINER EMILY 03/19/24: -2.2 Associated Problem(s): GERD (gastroesophageal reflux disease) Recommendations: freq small meals, nothing to eat or drink at least 2 hours prior to bed, limit caffeine, alcohol, as well as spicy food Meds to limit or avoid if possible: NSAIDS Elevate HOB if possible Meds: omeprazole Associated Problem(s): Primary hypertension (CMS/HCC) Please check blood pressure daily and record DASH diet Limit caffeine Take medication as directed Contact office if chest pain, pressure, dizziness, shortness of breath, swelling legs Recommend slow position changes Current meds: b sarah documented in this encounter [facility] 02-28-2025 Instructions Dian Soriano NP - 02/28/2025 9:00 AM EDT Lab slip Colonoscopy: dr Lebron's office should call, if no call in 2 weeks call me back documented in this encounter [facility] 11-29-2024 History of Present illness Narrative Associated Problem(s): TSH elevation Had initially prescribed Levothyroxine 25mcg for elevated TSH, pt called office two weeks ;later stating she had developed rash. Advised pt to stop levothyroxine. Py reports in office today that the rash occurred again after stopping Levothyroxine and has appeared intermittently throughout her life now that she thinks about it. Likely not caused by levothyroxine. Will re order today. Recheck levels in 6 weeks. Associated Problem(s): Primary hypertension (CMS/HCC) Currently taking Atenolol 50mg Furosemide 40mg BP logs at home are consistently less than 130/80. Denies orthostatic changes, dizziness, cough, shortness of breath, swelling in extremities. Continue current regimen. Given BP log, advised pt to record BP and bring log back with them to next visit. Images from the original note were not included. Subjective Patient ID: Rachele C Mark is a 64 y.o. female who presents for Follow-up. HPI HTN: Currently taking Atenolol 50mg Furosemide 40mg BP logs at home are consistently less than 130/80. Denies orthostatic changes, dizziness, cough, shortness of breath, swelling in extremities. Continue current regimen. Given BP log, advised pt to record BP and bring log back with them to next visit. Hypothyroidism: Had initially prescribed Levothyroxine 25mcg for elevated TSH, pt called office two weeks ;later stating she had developed rash. Advised pt to stop levothyroxine. Py reports in office today that the rash occurred again after stopping Levothyroxine and has appeared intermittently throughout her life now that she thinks about it. Likely not caused by levothyroxine. Will re order today. Recheck levels in 6 weeks. Review of Systems Constitutional: Negative for activity change, appetite change, chills, fatigue, fever, night sweats and unexpected weight change. HENT: Negative for congestion, ear pain, rhinorrhea, sinus pressure, sinus pain, sore throat, trouble swallowing and voice change. Eyes: Negative for discharge and visual disturbance. Respiratory: Negative for chest tightness, shortness of breath and wheezing. Cardiovascular: Negative for chest pain, palpitations and leg swelling. Gastrointestinal: Negative for abdominal distention, abdominal pain, blood in stool, constipation, diarrhea, nausea and vomiting. Genitourinary: Negative for difficulty urinating, dysuria, flank pain, hematuria and pelvic pain. Musculoskeletal: Negative for arthralgias, joint swelling and neck pain. Skin: Negative for rash and wound. Neurological: Negative for dizziness, tremors, syncope, weakness, light-headedness, numbness and headaches. Psychiatric/Behavioral: Negative for sleep disturbance and suicidal ideas. The patient is not nervous/anxious. Hematological: Does not bruise/bleed easily. Endocrine: Negative for cold intolerance, heat intolerance, polydipsia, polyphagia and polyuria. Objective Physical Exam Vitals reviewed. Constitutional: Appearance: Normal appearance. HENT: Right Ear: Tympanic membrane normal. Left Ear: Tympanic membrane normal. Nose: Nose normal. Mouth/Throat: Mouth: Mucous membranes are moist. Pharynx: Oropharynx is clear. Eyes: Pupils: Pupils are equal, round, and reactive to light. Cardiovascular: Rate and Rhythm: Normal rate and regular rhythm. Pulses: Normal pulses. Heart sounds: Normal heart sounds. Pulmonary: Effort: Pulmonary effort is normal. Breath sounds: Normal breath sounds. Abdominal: General: Abdomen is flat. Bowel sounds are normal. Palpations: Abdomen is soft. Musculoskeletal: General: Normal range of motion. Skin: General: Skin is warm and dry. Capillary Refill: Capillary refill takes less than 2 seconds. Neurological: Mental Status: She is alert and oriented to person, place, and time. Assessment/Plan Problem List Items Addressed This Visit Generalized anxiety disorder (CMS/HCC) Primary hypertension (CMS/HCC) Currently taking Atenolol 50mg Furosemide 40mg BP logs at home are consistently less than 130/80. Denies orthostatic changes, dizziness, cough, shortness of breath, swelling in extremities. Continue current regimen. Given BP log, advised pt to record BP and bring log back with them to next visit. TSH elevation - Primary Had initially prescribed Levothyroxine 25mcg for elevated TSH, pt called office two weeks ;later stating she had developed rash. Advised pt to stop levothyroxine. Py reports in office today that the rash occurred again after stopping Levothyroxine and has appeared intermittently throughout her life now that she thinks about it. Likely not caused by levothyroxine. Will re order today. Recheck levels in 6 weeks. documented in this encounter [facility] 08-07-2024 History of Present illness Narrative Associated Problem(s): Wellness examination I have reviewed Ht/Wt/BMI, I have reviewed recommended vaccines for patient's age, as well as all recommended screenings I have reviewed available care everywhere notes as well. I have recommended eating a balanced diet, as well as activity as chronic conditions allow It is recommended that the patient have a yearly eye exam, as well as twice a year dental exams Fu in this office for wellness on a yearly basis Diet: Eat three meals per day. Breakfast, lunch, and dinner. Avoid snacking. Avoid eating after 5/6 pm. Daily protein GOAL 35% of your intake; 30g per meal. Daily calorie GOAL 1,800-2,000 per day. Consider tracking your food intake on MyFtinessPal or LoseIt Water: Increase water intake; GOAL 64-80oz of water per day. Exercise: Increase activity. GOAL 30 minutes, 5 days per week. START SLOW. Start with 5 minutes, 5 days per week. Then increase to 10 days, 5 days per week. Continue to increase until you reach the goal. Increase steps; GOAL 10,000 steps per day. Be sure to get adequate sleep; GOAL 6-8 hours of sleep per night. Associated Problem(s): Fibromyalgia Follows closely with rheumtaology; Medications managed thru Rheumatology. Images from the original note were not included. Subjective Patient ID: Rachele Flores is a 63 y.o. female who presents for Establish Care (Pt previously saw Dr Cornejo but due to insurance change she had to find a new MD). HPI Here today to establish care: Will request records from Dr. Cornejo Retired. HTN: Currently taking Atenolol 50mg Furosemide 40mg Does not BP at home; Denies orthostatic changes, dizziness, cough, shortness of breath, swelling in extremities. Continue current regimen. Given BP log, advised pt to record BP and bring log back with them to next visit. Anxiety/PTSD: Currently taking buspirone 10mg Reports still having panic attacks But feels the depression is well managed. Diet: Had weight loss surgery in 1999; Frequently snacks; Has dumping syndrome; Water: 1/2 gallon per day Exercise: Rides exercise bike 80 minutes per day: Sleep: sleeps 8 hours hours per night Feels well rested. Review of Systems Constitutional: Negative for activity change, appetite change, chills, diaphoresis, fatigue, fever and unexpected weight change. HENT: Negative for congestion, ear pain, rhinorrhea, sinus pressure, sinus pain, sneezing, sore throat, trouble swallowing and voice change. Eyes: Positive for visual disturbance. Respiratory: Negative for cough, chest tightness, shortness of breath and wheezing. Cardiovascular: Negative for chest pain, palpitations and leg swelling. Gastrointestinal: Negative for abdominal distention, abdominal pain, blood in stool, constipation, diarrhea and vomiting. Genitourinary: Negative for decreased urine volume, dysuria, flank pain, frequency, hematuria and urgency. Musculoskeletal: Positive for myalgias. Negative for arthralgias, gait problem and joint swelling. Skin: Negative for rash. Neurological: Negative for dizziness, tremors, syncope, weakness, light-headedness and headaches. Psychiatric/Behavioral: Negative for decreased concentration and suicidal ideas. The patient is not nervous/anxious. Hematological: Does not bruise/bleed easily. Endocrine: Negative for cold intolerance, heat intolerance, polydipsia, polyphagia and polyuria. Objective Physical Exam Vitals reviewed. Constitutional: Appearance: Normal appearance. HENT: Head: Normocephalic and atraumatic. Right Ear: Tympanic membrane normal. Left Ear: Tympanic membrane normal. Nose: Nose normal. Mouth/Throat: Mouth: Mucous membranes are moist. Pharynx: Oropharynx is clear. Eyes: Pupils: Pupils are equal, round, and reactive to light. Cardiovascular: Rate and Rhythm: Normal rate and regular rhythm. Pulses: Normal pulses. Heart sounds: Normal heart sounds. Pulmonary: Effort: Pulmonary effort is normal. Breath sounds: Normal breath sounds. Abdominal: General: Abdomen is flat. Bowel sounds are normal. Palpations: Abdomen is soft. Musculoskeletal: General: Normal range of motion. Cervical back: Normal range of motion. Skin: General: Skin is warm and dry. Capillary Refill: Capillary refill takes less than 2 seconds. Neurological: General: No focal deficit present. Mental Status: She is alert and oriented to person, place, and time. Psychiatric: Mood and Affect: Mood normal. Behavior: Behavior normal. Assessment/Plan Problem List Items Addressed This Visit Fibromyalgia Follows closely with rheumtaology; Medications managed thru Rheumatology. Osteoarthritis involving multiple joints on both sides of body Anxiety disorder, unspecified Relevant Medications ALPRAZolam (Xanax) 0.25 MG tablet Primary hypertension (CMS/HCC) Relevant Orders TSH W/REFLEX TO FT4 Comprehensive metabolic panel CBC and differential Encounter to establish care - Primary Wellness examination I have reviewed Ht/Wt/BMI, I have reviewed recommended vaccines for patient's age, as well as all recommended screenings I have reviewed available care everywhere notes as well. I have recommended eating a balanced diet, as well as activity as chronic conditions allow It is recommended that the patient have a yearly eye exam, as well as twice a year dental exams Fu in this office for wellness on a yearly basis Diet: Eat three meals per day. Breakfast, lunch, and dinner. Avoid snacking. Avoid eating after 5/6 pm. Daily protein GOAL 35% of your intake; 30g per meal. Daily calorie GOAL 1,800-2,000 per day. Consider tracking your food intake on MyFtinessPal or LoseIt Water: Increase water intake; GOAL 64-80oz of water per day. Exercise: Increase activity. GOAL 30 minutes, 5 days per week. START SLOW. Start with 5 minutes, 5 days per week. Then increase to 10 days, 5 days per week. Continue to increase until you reach the goal. Increase steps; GOAL 10,000 steps per day. Be sure to get adequate sleep; GOAL 6-8 hours of sleep per night. Relevant Orders TSH W/REFLEX TO FT4 Lipid panel Hemoglobin A1c Comprehensive metabolic panel CBC and differential documented in this encounter [facility] 08-06-2024 Instructions Cyndi Piper NP - 08/06/2024 10:00 AM EDT FASTING labs ordered. Nothing to eat or drink for 12 hours prior to blood draw. Water and black coffee ok. Your blood pressure is GOOD in the office today. Check your blood pressure at home 3 times per week, preferably in the afternoon. Goal <130/90. Record results in blood pressure log. Bring back with you to your next visit. Diet: Eat three meals per day. Breakfast, lunch, and dinner. Avoid snacking. Avoid eating after 5/6 pm. Daily protein GOAL 35% of your intake; 30g per meal. Daily calorie GOAL 1,800-2,000 per day. Consider tracking your food intake on MyFtinessPal or LoseIt Water: Increase water intake; GOAL 64-80oz of water per day. Exercise: Increase activity. GOAL 30 minutes, 5 days per week. START SLOW. Start with 5 minutes, 5 days per week. Then increase to 10 days, 5 days per week. Continue to increase until you reach the goal. Increase steps; GOAL 10,000 steps per day. Be sure to get adequate sleep; GOAL 6-8 hours of sleep per night. documented in this encounter [facility] 12-26-2023 History of Present illness Narrative Images from the original note were not included. Chief Complaint Patient presents with Left Knee - Pain HISTORY OF PRESENT ILLNESS: Rachele Flores is an 63 y.o. @ female. (EST PT) LT TKA (05/01/2020) (3 YRS 7 1/2 MTHS ) XRAY TODAY CHANGE 12/26/23 XRAY CHANGE 06/29/23 XRAY EXA 06/29/21 XRAYS 05/14/20 IN EXA ; POST-OP S/P PHYSICAL THERAPY NO RECENT MDP/INJ NO PAIN MANAGEMENT STARTED HAVING PAIN AND SWELLING ABOUT 2 WKS AGO. NKI. STATES PAIN WAS DIFFUSE IN KNEE. NOTES THAT PAIN AND SWELLING HAS BEEN IMPROVING. USED ICE INITIALLY. DENIES GIVING OUT. 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 ALLERGIES: Allergies Allergen Reactions Ciprofloxacin Shortness of breath Other Reaction(s): ? angioedema Nitrofurantoin Rash and Shortness of breath Penicillins Shortness of breath Venlafaxine Shortness of breath Other Reaction(s): worsening anxiety Baclofen Other Reaction(s): Intolerance HOME MEDICATIONS: Current Outpatient Medications Medication Instructions ALPRAZolam (Xanax) 0.25 MG tablet TAKE 1 TABLET BY MOUTH THREE TIMES DAILY NEEDED (10 days) atenolol (TENORMIN) 50 mg, Oral, Daily busPIRone (BUSPAR) 10 mg, Oral, 2 times daily cholecalciferol 25 mcg, Oral, Daily cyclobenzaprine (Flexeril) 10 MG tablet TAKE 4 TABLETS BY MOUTH AT BEDTIME etodolac (Lodine) 500 MG tablet Every 24 hours fluconazole (Diflucan) 150 MG tablet TAKE 1 TABLET BY MOUTH as a one time dose furosemide (LASIX) 40 mg, Oral, Daily methylPREDNISolone (Medrol Dospak) 4 MG tablets Follow schedule on package instructions metoclopramide (Reglan) 5 MG tablet omeprazole (PRILOSEC) 40 mg, Oral, 2 times daily OXcarbazepine (Trileptal) 300 MG tablet Every 12 hours traMADol (Ultram) 50 MG tablet REVIEW OF SYSTEMS: General: Denies fever, fatigue or weight loss Skin: Denies rash, sores or skin changes Eyes: Denies visual disturbance or pain GI: Denies indigestion or abdominal pain Neuro: Denies numbness or tingling, denies new onset paralysis Musculoskeletal: ( see note) PHYSICAL EXAM: Left Knee Exam Muscle Strength The patient has normal left knee strength. Tenderness Left knee tenderness location: suprapatellar bursa. Range of Motion Extension: normal Flexion: normal Tests Varus: negative Valgus: negative Other Erythema: absent Scars: present Sensation: normal Pulse: present Swelling: mild Vitals: There is no height or weight on file to calculate BMI. IMAGING: XR knee 1 or 2 views left Imaging Result: AP and lateral of left knee showed surgical position and alignment of prosthetic components without evidence of loosening or wear to the femoral, tibial, or patellar components. The alignment appeared to be anatomic. There was no evidence of accelerated or asymmetric wear to the patellar button or tibial tray. There was no evidence of fracture and/or dislocation. Impression: Unremarkable left total knee arthroplasty. ASSESSMENT: ICD-10-CM 1. Knee strain, left, initial encounter S86.912A methylPREDNISolone (Medrol Dospak) 4 MG tablets 2. Primary osteoarthritis of left knee M17.12 XR knee 1 or 2 views left 3. Status post left knee replacement Z96.652 Procedures PLAN: Patient states that she has had increased swelling and pain for about 2 weeks with no injury. States that pain and swelling are improving. I reviewed xray which showed stable LT TKA. I recommend that patient start MDP to help relieve pain and swelling. She will follow up in 2 weeks for RCK. Questions answered in laymen terms at the bedside. The diagnosis, home exercise plan and any ongoing restrictions/ recommendations reviewed. If unable to be reached in office, I recommend evaluation at nearest Emergency Room if any symptoms worsened or new symptoms develop for requiring urgent evaluation. Judd Wheeler APRN-DECORATIVE ENGRAVER documented in this encounter [facility] 11-16-2023 Evaluation note Encounter Date Diagnosis Assessment Notes Nov, Hot flash, menopausal (ICD-10 - N95.1) [facility] Other 01-02-2024 Evaluation note* Encounter Date Diagnosis Assessment Notes Treatment Notes Treatment Clinical Notes Nov, Hot flash, menopausal (ICD-10 - N95.1) Trial of new med. Discussed options, new insurance pending. If too expensive could increast HRT dose. Will monitor results. [facility] Other 12-11-2023 Evaluation note* Encounter Date Diagnosis Assessment Notes Treatment Notes Treatment Clinical Notes Oct, Hot flash, menopausal (ICD-10 - N95.1) [facility] Other 04-20-2023 Evaluation note* Encounter Date Diagnosis Assessment Notes Treatment Notes Treatment Clinical Notes Feb, Vaginal discharge (ICD-10 - N89.8) culture pending - possible BV. would hold on further yeast treatment until culture result is back. Feb, Dysuria (ICD-10 - R30.0) UA normal. vaginal culture pending [facility] Other 03-30-2023 NotePROCEDURE: XR FOOT LT MIN 3 VIEWS COMPARISON: 12/15/2022 HISTORY: Pain in left foot FINDINGS: BONES:Stable midfoot forefoot fusion with multiple screws. Single screw fragment identified lateral cuneiform, stable. No new mechanical failure. Lucency in the distal tibia consistent with bone graft harvesting. Partial Stable flattening of the plantar arch SOFT TISSUES:Negative. No visible soft tissue swelling. EFFUSION:None visible. OTHER: Negative. IMPRESSION: Stable tarsometatarsal fusion Electronically authenticated by: CARLITOS VANEGAS Date: 2023-02-10 08:06[facility]02-01-2023 NotePROCEDURE: XR FOOT LT MIN 3 VIEWS HISTORY: Pain in left foot COMPARISON: XR foot left 11/23/2022 FINDINGS: BONES:Mechanical fusion of the first, second, and third tarsal-metatarsal joints via multiple lag screws; no evidence of hardware fracture or loosening. No bone fracture or dislocation. Stable small spacer projecting over lateral cuneiform. Flattening of the plantar arch. SOFT TISSUES:No visible soft tissue swelling. EFFUSION:None visible. OTHER: Negative. IMPRESSION: 1. Stable surgical changes without evidence of hardware failure or change in alignment. 2. Stable pes planus. Electronically authenticated by: LOC DELACRUZ Date: 2022-12-15 16:49[facility]12-13-2022 NotePROCEDURE: XR FOOT LT MIN 3 VIEWS HISTORY: Pain in left foot COMPARISON: XR foot left 10/05/2022 FINDINGS: BONES:Mechanical fusion of the first, second, third tarsal-metatarsal joints without evidence of hardware fracture, loosening, or bone fracture. Remnant leg of a bone staple within the lateral cuneiform. SOFT TISSUES:Moderate soft tissue swelling with dorsal skin sarah. Cast material has been removed. EFFUSION:None visible. OTHER: Negative. IMPRESSION: 1. Stable surgical changes without evidence of hardware failure or change in alignment. Electronically authenticated by: LOC DELACRUZ Date: 2022-10-26 15:47[id number] NotePROCEDURE: XR FOOT LT MIN 3 VIEWS HISTORY: Pain ; revision of left midfoot fusion COMPARISON: XR foot left 10/05/2022 2:14 PM, 09/15/2022 FINDINGS: BONES:Mechanical fusion of the first, second, and third tarsal-metatarsal joint via 4 lag screws. Remnants arm of one of the bone sarah remains within the lateral cuneiform. SOFT TISSUES:Dorsal soft tissue swelling and skin sarah. Images were obtained to cast material. EFFUSION:None visible. OTHER: Negative. IMPRESSION: 1. Surgical fusion/revision of left midfoot fusion; stable compared to intraoperative images. Electronically authenticated by: LOC DELACRUZ Date: 2022-10-06 10:54[facility]11-23-2022 NotePROCEDURE: XR FOOT LT 2V HISTORY: Pain ; left foot pain; revision of left midfoot fusion COMPARISON: None. FINDINGS: BONES:Intraoperative spot fluoroscopic images demonstrate removal of the 4 bone sarah, except for one leg of the lateralmost staple which remains within the lateral cuneiform. Placement of multiple lag screws for fusion of the first, second, and third tarsal-metatarsal joints. SOFT TISSUES:Expected intraoperative findings. EFFUSION:None visible. OTHER: Negative. IMPRESSION: 1. Surgical revision with mechanical fusion of first through third tarsal-metatarsal joints. Electronically authenticated by: LOC DELACRUZ Date: 2022-10-06 10:52[facility]2022 NotePROCEDURE: Axial 3 mm. slice thickness images through the left foot were performed. FINDINGS: Comparison made with prior plain film exam August 06, 2020 (presurgical exam with no subsequent prior post-operative examination for comparison). 1-3 tarsal metatarsal plate screw fusion hardware, normal anatomic alignment. No osseous or hardware fracture. No cortical or stress fracture. No evidence of osteomyelitis. Normal tarsal metatarsal and intertarsal relationship. Intertarsal arthritis with mild flexion deformities, non-specific finding, possibly due to positioning. Unremarkable soft tissues. 2 mm lucency underlies the medial talar dome, anterior aspect, likely subchondral injury, non-acute. Normal tibiotalar and tibiofibular relationship. Normal subtalar joint and Bohler's angle. No significant calcaneal spur formation. IMPRESSION: 1-3 tarsal metatarsal fusion, no evidence of osteomyelitis, cortical or stress fracture Report reported and signed by Chad Montgomery on 09/21/2022 [id number]-2022 NotePROCEDURE: XR FOOT LT MIN 3 VIEWS COMPARISON: 06/08/2021 HISTORY: Pain in left foot FINDINGS: BONES:Stable surgical staple fusion of the first second and third tarsometatarsal joints with fracture of the surgical staple at the third joint, unchanged. No new fracture or dislocation. Degenerative changes most significant at the navicular tarsal joints SOFT TISSUES:Negative. No visible soft tissue swelling. EFFUSION:None visible. OTHER: Negative. IMPRESSION: Stable exam Electronically authenticated by: CARLITOS VANEGAS Date: 2022-09-15 18:38[facility]07-14-2022 Evaluation note* Encounter Date Diagnosis Assessment Notes Treatment Notes Treatment Clinical Notes May, Lumbosacral spondylosis (ICD-10 - M47.817) 61 year old female here for follow up status post lumbar facet medial branch radiofrequency ablation bilaterally at L3, L4 as well as L5 dorsal ramus for denervation of L4-5, L5-S1 facet joints under fluoroscopic guidance. Patient reports 80-90% pain releif as well as improved walking, standing and daily functions following procedure. She voices mild residual low back pain, denying radicular symptoms. I recommend she increase her activities as tolerated. She is counseled against any excessive bending or twisting. She is advised to call the office if her pain returns. May, Sacroiliitis (ICD-10 - M46.1) Stable. Continue with current treatment plan May, Chronic pain (ICD-10 - G89.29) Patient is encouraged to follow up as needed. [facility] Other 06-24-2022 Evaluation note* Encounter Date Diagnosis Assessment Notes Treatment Notes Treatment Clinical Notes Apr, Lumbosacral spondylosis (ICD-10 - M47.817) 61 year old female here for follow up status post lumbar facet medial branch nerve block bilaterally at the L3 and L4 levels, as well as the L5 dorsal ramus under fluoroscopic guidance. Patient reports 80% pain relief as well as improved walking, standing and daily functions for 8 hours following the procedure. She continues to complain of low back pain today as expected. Anatomy of spine discussed in detail with patient in regards to patients condition. Patient is a candidate for a bilateral lumbar facet RFA under fluoroscopic guidance. Risks and benefits of procedure explained to patient; patient verbalizes understanding. Apr, Sacroiliitis (ICD-10 - M46.1) Stable. Patient denies sacral pain today. Proceed with current treatment plan Apr, Chronic pain (ICD-10 - G89.29) Patient is encouraged to follow up after procedure [facility] Other 06-07-2022 Evaluation note* Encounter Date Diagnosis Assessment Notes Treatment Notes Treatment Clinical Notes Apr, Sacroiliitis (ICD-10 - M46.1) Patient does not appear to have sacral pain today. Apr, Lumbosacral spondylosis (ICD-10 - M47.817) 61 year old female here for follow up status post lumbar facet medial branch nerve block bilaterally at the L3 and L4 levels, as well as the L5 dorsal ramus under fluoroscopic guidance. Patient reports 80-90% pain relief as well as improved walking, standing and daily functions for 1 day following the procedure. She continues to complain of low back pain today as expected. Anatomy of spine as well as different treatment options were discussed in detail with patient in regards to patients condition. I recommend we proceed with a confirmatory bilateral lumbar facet medial branch nerve block under fluoroscopic guidance. Risks and benefits of procedure explained to patient; patient verbalizes understanding. Apr, Occipital neuralgia (ICD-10 - M54.81) Patient reports continued pain relief following occipial branch nerve block. If her pain increases, we can consider repeating this in the future. Apr, Chronic pain (ICD-10 - G89.29) Continue with current treatment plan. [facility] Other 05-20-2022 Evaluation note* Encounter Date Diagnosis Assessment Notes Treatment Notes Treatment Clinical Notes March, Sacroiliitis (ICD-10 - M46.1) Patient does not appear to have sacral pain today. March, Lumbosacral spondylosis (ICD-10 - M47.817) 61 year old female here for follow up for chronic pain. She voices complaints of low back pain. She denies radicular symptoms. She also voices complaint of intermittent pain to the back of the head. Patient failed improvement with physical therapy within the last 6 months. She can not take NSAIDs due stomach ulcers. She feels pain can negatively impact her ADLs and sleeping pattern. Pertinent imaging was reviewed and discussed in detail with the patient which showed early arthritis in the lumbar spine. Anatomy of spine as well as different treatment options were discussed in detail with patient in regards to patients condition. I recommend we proceed with bilateral lumbar facet medial branch nerve block under fluoroscopic guidance. Risks and benefits of procedure explained to patient; patient verbalizes understanding. March, Occipital neuralgia (ICD-10 - M54.81) Patient reports continued pain relief following occipial branch nerve block. If her pain increases, we can consider repeating this in the future. March, Chronic pain (ICD-10 - G89.29) Continue with current treatment plan. March, Other Patient cont inues to report 80-90% pain relief and increased function following procedure [facility] Other 02-08-2022 Evaluation note* Encounter Date Diagnosis Assessment Notes Treatment Notes Treatment Clinical Notes Dec, Occipital neuralgia (ICD-10 - M54.81) 61 year old female here for follow up status post right greater and lesser occipital nerve radiofrequency ablation under fluoroscopic guidance. Patient reports 95% pain relief following procedure. She voices complaints of intermittent stiffness to the neck and back of the head. She continues to work on ROM exercises as previously discussed. Different treatment options were discussed in detail with the patient, overall, she appears to be doing very well and does not require further treatment at this time. She is encouraged to call the office if her pain returns. Dec, Cervical spondylosis (ICD-10 - M47.812) Patient continues to report 80-90% pain relief and increased function following procedure Dec, Sacroiliitis (ICD-10 - M46.1) Patient denies low back pain today Dec, Chronic pain (ICD-10 - G89.29) Patient is encouraged to call the office if her pain returns [facility] Other 11-11-2021 Evaluation note* Encounter Date Diagnosis Assessment Notes Treatment Notes Treatment Clinical Notes Sep, Cervical spondylosis (ICD-10 - M47.812) 60 year old female here for follow up status post cervical facet medial branch radiofrequency denervation bilaterally at C2, C3 and C4 under fluoroscopic guidance. Patient reports 50% pain relief and increased function following procedure. She voices complaints of continued neck pain today, denying radicular symptoms. Different treatment options were discussed in detail with the patient, and I recommend she give the procedure more time as it can take up to 6 weeks for maximum relief. In the meantime, she can use heat/ice as tolerated to the painful areas. Sep, Lumbosacral spondylosis (ICD-10 - M47.817) In regards to her continued complaints of low back pain, she notes she recently completed physical therapy and feels this did not relieve her pain. I independently reviewed recent Xray of the lumbar spine which shows degenerative changes. I will order an updated MRI of the lumbar spine to further evaluate her pain Sep, Chronic pain (ICD-10 - G89.29) Continue medications as prescribed [facility] Other 10-01-2021 Evaluation note* Encounter Date Diagnosis Assessment Notes Treatment Notes Treatment Clinical Notes Aug, Cervical spondylosis (ICD-10 - M47.812) 60 year old female here for follow up for chronic pain. She voices complaints of neck pain bilaterally. She also complains of low back pain which is chronic in nature. For her neck pain I recommend proceeding with a right followed by left cervical facet medial branch RFA as this has provided her with significant pain relief in the past. Risks and benefits of procedure explained to patient; patient verbalizes understanding. In the meantime I will refer her to physical therapy for her back pain and order updated imaging of the lumbar spine. Aug, Degenerative disc disease, cervical (ICD-10 - M50.30) Stable, follow up after procedure. Aug, Low back pain (ICD-10 - M54.5) In regards to her complaints of low back pain I will refer her to physical therapy and order updated imaging of the lumbar spine. Aug, Chronic pain (ICD-10 - G89.29) Follow up after procedure. [facility] Other Evaluation noteNo InformationN[employer] Other Evaluation noteNo assessment information available [facility] Work Phone: [email or web address] note* Diagnosis Knee strain, left, initial encounter- Primary Primary osteoarthritis of left knee Status post left knee replacement [facility] Diagnosis TSH elevation- Primary [facility] Diagnosis Encounter to establish care- Primary Wellness examination Primary hypertension (CMS/HCC) Unspecified essential hypertension Generalized anxiety disorder (CMS/HCC) Generalized anxiety disorder Fibromyalgia Unspecified myalgia and myositis Osteoarthritis involving multiple joints on both sides of body Generalized anxiety disorder (CMS/HCC) Generalized anxiety disorder [facility] Diagnosis Encounter to establish care- Primary Wellness examination Primary hypertension (CMS/HCC) Unspecified essential hypertension Generalized anxiety disorder (CMS/HCC) Generalized anxiety disorder Fibromyalgia Unspecified myalgia and myositis Osteoarthritis involving multiple joints on both sides of body Generalized anxiety disorder (CMS/HCC) Generalized anxiety disorder [facility] Diagnosis Encounter to establish care- Primary Wellness examination Primary hypertension (CMS/HCC) Unspecified essential hypertension Generalized anxiety disorder (CMS/HCC) Generalized anxiety disorder Fibromyalgia Unspecified myalgia and myositis Osteoarthritis involving multiple joints on both sides of body Generalized anxiety disorder (CMS/HCC) Generalized anxiety disorder [facility] Diagnosis Encounter to establish care- Primary Wellness examination Primary hypertension (CMS/HCC) Unspecified essential hypertension Generalized anxiety disorder (CMS/HCC) Generalized anxiety disorder Fibromyalgia Unspecified myalgia and myositis Osteoarthritis involving multiple joints on both sides of body documented in this encounter [facility]* Diagnosis Encounter to establish care- Primary Wellness examination Primary hypertension (CMS/HCC) Unspecified essential hypertension Generalized anxiety disorder (CMS/HCC) Generalized anxiety disorder Fibromyalgia Unspecified myalgia and myositis Osteoarthritis involving multiple joints on both sides of body TSH elevation- Primary Generalized anxiety disorder (CMS/HCC) Generalized anxiety disorder Primary hypertension (CMS/HCC) Unspecified essential hypertension documented in this encounter [facility]* Diagnosis Encounter to establish care- Primary Wellness examination Primary hypertension (CMS/HCC) Unspecified essential hypertension Generalized anxiety disorder (CMS/HCC) Generalized anxiety disorder Fibromyalgia Unspecified myalgia and myositis Osteoarthritis involving multiple joints on both sides of body TSH elevation- Primary Generalized anxiety disorder (CMS/HCC) Generalized anxiety disorder Primary hypertension (CMS/HCC) Unspecified essential hypertension Generalized anxiety disorder (CMS/HCC) Generalized anxiety disorder documented in this encounter [facility]* Diagnosis Encounter to establish care- Primary Wellness examination Primary hypertension (CMS/HCC) Unspecified essential hypertension Generalized anxiety disorder (CMS/HCC) Generalized anxiety disorder Fibromyalgia Unspecified myalgia and myositis Osteoarthritis involving multiple joints on both sides of body TSH elevation- Primary Generalized anxiety disorder (CMS/HCC) Generalized anxiety disorder Primary hypertension (CMS/HCC) Unspecified essential hypertension TSH elevation documented in this encounter [facility]* Diagnosis Encounter to establish care- Primary Wellness examination Primary hypertension (CMS/HCC) Unspecified essential hypertension Generalized anxiety disorder (CMS/HCC) Generalized anxiety disorder Fibromyalgia Unspecified myalgia and myositis Osteoarthritis involving multiple joints on both sides of body TSH elevation- Primary Generalized anxiety disorder (CMS/HCC) Generalized anxiety disorder Primary hypertension (CMS/HCC) Unspecified essential hypertension Generalized anxiety disorder (CMS/HCC) Generalized anxiety disorder documented in this encounter [facility]* Diagnosis Encounter to establish care- Primary Wellness examination Primary hypertension (CMS/HCC) Unspecified essential hypertension Generalized anxiety disorder (CMS/HCC) Generalized anxiety disorder Fibromyalgia Unspecified myalgia and myositis Osteoarthritis involving multiple joints on both sides of body TSH elevation- Primary Generalized anxiety disorder (CMS/HCC) Generalized anxiety disorder Primary hypertension (CMS/HCC) Unspecified essential hypertension Severe anxiety with panic (CMS/HCC)- Primary Primary hypertension (CMS/HCC) Unspecified essential hypertension Gastroesophageal reflux disease, unspecified whether esophagitis present Osteopenia, unspecified location Adult hypothyroidism ([facility]/HCC) Unspecified hypothyroidism Irritable bowel syndrome with both constipation and diarrhea Colon cancer screening Special screening for malignant neoplasms, colon Osteoarthritis of left knee, unspecified osteoarthritis type documented in this encounter [facility] note* Diagnosis Encounter to establish care- Primary Wellness examination Primary hypertension ([facility]/HCC) Unspecified essential hypertension Generalized anxiety disorder (CMS/HCC) Generalized anxiety disorder Fibromyalgia Unspecified myalgia and myositis Osteoarthritis involving multiple joints on both sides of body TSH elevation- Primary Generalized anxiety disorder (CMS/HCC) Generalized anxiety disorder Primary hypertension (CMS/HCC) Unspecified essential hypertension Severe anxiety with panic (CMS/HCC)- Primary Primary hypertension (CMS/HCC) Unspecified essential hypertension Gastroesophageal reflux disease, unspecified whether esophagitis present Osteopenia, unspecified location Adult hypothyroidism ([facility]) Unspecified hypothyroidism Irritable bowel syndrome with both constipation and diarrhea Colon cancer screening Special screening for malignant neoplasms, colon Osteoarthritis of left knee, unspecified osteoarthritis type Adult hypothyroidism ([facility])- Primary Unspecified hypothyroidism documented in this encounter [facility] HealthcareHistory general Narrative - Reported* Type Description Date Medical History Panic attacks Medical History high blood pressure Medical History Rheumatoid Arthritis Surgical History bariatric surgery Surgical History hysterectomy Surgical History gall bladder removal Surgical History total left knee replacement 04/15 020 Surgical History spur removed and bone fusion on the left 09/2020 Hospitalization History see above [facility] Other History general Narrative - Reported* Type Description Date Medical History Panic attacks Medical History high blood pressure Medical History Rheumatoid Arthritis Surgical History bariatric surgery Surgical History hysterectomy Surgical History gall bladder removal Surgical History total left knee replacement 04/15 020 Surgical History spur removed and bone fusion on the left 09/2020 Surgical History eye lid bilateral 10/2022 Hospitalization History see above [facility] Other History general Narrative - Reported* Type Description Date Medical History Panic attacks Medical History high blood pressure Medical History Rheumatoid Arthritis Surgical History bariatric surgery Surgical History hysterectomy Surgical History gall bladder removal Surgical History total left knee replacement 04/15 020 Surgical History spur removed and bone fusion on the left 09/2020 Surgical History eye lid bilateral 10/2022 Surgical History foot surgery left foot 2021 Hospitalization History see above [facility] Other History general Narrative - Reported* Type Description Date Medical History Panic attacks Medical History high blood pressure Medical History Rheumatoid Arthritis Surgical History bariatric surgery Surgical History hysterectomy with BSO Surgical History gall bladder removal Surgical History total left knee replacement 04/15 Surgical History spur removed and bone fusion on the left 09/2020 Surgical History eye lid bilateral 10/2022 Surgical History foot surgery left foot 2021 Hospitalization History see above [facility] Other Summary Purpose Family History Relationship Condition Age at Onset Recorded Date/T melia father Congestive heart failure Unknown Not Specified Chronic obstructive pulmonary disease Un known brother Diabetes mellitus Unknown sister Diabetes mellitus Unknown Relationship Condition Age at Onset Recorded Date/T melia father Congestive heart failure Unknown Not Specified Chronic obstructive pulmonary disease Un known brother Diabetes mellitus Unknown sister Diabetes mellitus Unknown father Unknown Heart disease Unknown Not Specified Unknown sister Hypertension Unknown Diabetes mellitus Unknown Advance Directives Advance Directive Response Recorded Date/ Time Advance Directives No March 31 9:27am Chief Complaint and Reason for Visit Chief Complaint Amb Documentation medication discussion Additional Source Comments INFORMATION SOURCE (unrecogn ized section and content) DATE CREATED AUTHOR 01/11/2020 [facility] DATE CREATED AUTHOR AUTHOR'S ORGANIZ ATION 09/22/2022 [facility] Specialist DATE CREATED AUTHOR AUTHOR'S ORGANIZ ATION 02/21/2023 [facility] DATE CREATED AUTHOR AUTHOR'S ORGANIZ ATION 03/08/2023 [facility] DATE CREATED AUTHOR AUTHOR'S ORGANIZ ATION 03/02/2025 [facility] dical Specialists [facility] DATE CREATED AUTHOR AUTHOR'S ORGANIZ ATION 03/13/2025 [facility] REASON FOR VISIT (unrecogniz ed section and content) Reason Comments Pain Reason Comments Med Refill Reason Onset Date Comments Med Refill 09/30/2024 Reason Onset Date Comments Med Refill 10/25/2024 Reason Comments Establish Care Pt previously saw Dr Cornejo but due to insurance change she had to find a new MD Reason Comments Follow-up Reason Onset Date Comments Med Refill 12/26/2024 Reason Onset Date Comments Med Refill 02/26/2025 Reason Comments Hypothyroidism Care Teams (unrecognized sec tion and content) Team Status: Active Member Role Status Dates Vadim Cornejo MD Primary Care Provider Active Team Status: Active Member Role Status Dates Vadim Cornejo MD Primary Care Provider Active Start: January 19, 2024 JOSEPH Marin Attending Provider Active Start : January 19, 2024 Team Status: Active Member Role Status Dates Vadim Cornejo MD Primary Care Provider Active Start: March 12, 2024 Barrett Ying Attending Provider Active Start: [facility] 2023 Team Status: Inactive Member Role Status Dates Vadim Cornejo MD Primary Care Provide r, Attending Provider Active Start: March 19, 2024 End: March 19, 2024 Team Status: Inactive Member Role Status Dates Vadim Cornejo MD Primary Care Provider, Attending Chanel vargas Active [employer] Relationship Specialty Start Date End Date Vadim Cornejo MD [address] [place] [phone] PCP - General Family Medicine 06/29/23 [employer] Relationship Specialty Start Date End Date Vadim Cornejo MD [address] [place] [phone] PCP - General Family Medicine 06/29/23 [employer] Relationship Specialty Start Date End Date Alejo Zavala MD [address] [place] [phone] PCP - General Family Medicine 07/23/24 Cyndi Piper NP [address] [place] [address] Nurse Practitioner Family Medicine 07/23/24 [employer] Relationship Specialty Start Date End Date Alejo Zavala MD [address] [place] [phone] PCP - General Family Medicine 07/23/24 Cyndi Piper NP [address] [place] [address] Nurse Practitioner Family Medicine 07/23/24 [employer] Relationship Specialty Start Date End Date Alejo Zavala MD [address] [place] [phone] PCP - General Family Medicine 07/23/24 Cyndi Piper NP [address] [place] [address] Nurse Practitioner Family Medicine 07/23/24 [employer] Relationship Specialty Start Date End Date Alejo Zavala MD [address] [place] [phone] PCP - General Family Medicine 07/23/24 Cyndi Piper NP [address] [place] [address] Nurse Practitioner Family Medicine 07/23/24 [employer] Relationship Specialty Start Date End Date Alejo Zavala MD [address] [place] [phone] PCP - General Family Medicine 07/23/24 Cyndi Piper NP [address] [place] [address] Nurse Practitioner Family Medicine 07/23/24 [employer] Relationship Specialty Start Date End Date Alejo Zavala MD [address] [place] [phone] PCP - General Family Medicine 07/23/24 Cyndi Piper NP [address] [place] [address] Nurse Practitioner Family Medicine 07/23/24 [employer] Relationship Specialty Start Date End Date Alejo Zavala MD [address] [place] [phone] PCP - General Family Medicine 07/23/24 Cyndi Piper NP [address] [place] [address] Nurse Practitioner Family Medicine 07/23/24 [employer] Relationship Specialty Start Date End Date Alejo Zavala MD [address] [place] [phone] PCP - General Family Medicine 07/23/24 Cyndi Piper NP [address] [place] [address] Nurse Practitioner Family Medicine 07/23/24 Barrett Ying DO [address] [place] [address] [place] [address] Referring Physician Obstetrics and Gynecology 11/20/24 [employer] Relationship Specialty Start Date End Date Alejo Zavala MD [address] [place] [phone] PCP - General Family Medicine 07/23/24 Cyndi Piper NP [address] [place] [address] Nurse Practitioner Family Medicine 07/23/24 Barrett Ying [place] [facility] [place] [address] Referring Physician Obstetrics and Gynecology 11/20/24 [employer] Relationship Specialty Start Date End Date Alejo Zavala MD [address] [place] [phone] PCP - General Family Medicine 07/23/24 Cyndi Piper, N[employer] [address] [place] [phone] Nurse Practitioner Family Medicine 07/23/24 Barrett Ying [place] [facility] [place] [address] Referring Physician Obstetrics and Gynecology 11/20/24 [employer] Relationship Specialty Start Date End Date Alejo Zavala MD [address] [place] [address] PCP - General Family Medicine 07/23/24 Cyndi Piper, N[place] [address] [place] [phone] Nurse Practitioner Family Medicine 07/23/24 Barrett Ying DO [facility] [place] [address] Referring Physician Obstetrics and Gynecology 11/20/24 [employer] Relationship Specialty Start Date End Date Alejo Zavala MD [address] [place] [phone] PCP - General Family Medicine 07/23/24 Cyndi Piper NP [address] [place] [phone] Nurse Practitioner Family Medicine 07/23/24 Barrett Ying DO [address] [place], [place] [address] [address] Referring Physician Obstetrics and Gynecology 11/20/24 [employer] Relationship Specialty Start Date End Date Alejo Zavala MD [address] [place] [phone] PCP - General Family Medicine 07/23/24 Cyndi Piper NP [address] [place] [address] Nurse Practitioner [facility] Medicine 07/23/24 Barrett Ying DO [address] [place], [place] [address] [address] Referring Physician Obstetrics and Gynecology 11/20/24 Goals (unrecognized section and content) Goals may be documented in a n alternate section FOR RECORDS PERTAINING TO PATIENTS WHO ARE OR HAVE BEEN ENROLLED IN A CHEMICAL DEPENDENCY/SUBSTANCEABUSE PROGRAM, SOME INFORMATION MAY BE OMITTED. This clinical summary was aggregated from multiple sources. Caution should be exercised in using it in the provision of clinical care. This summary normalizes information from multiple sources, and as a consequence, information in this document may materially change the coding, format and clinical context of patient data. In addition, data may be omitted in some cases. CLINICAL DECISIONS SHOULD BE BASED ON THE PRIMARY CLINICAL RECORDS. [employer] [facility]. provides no warranty or guarantee of the accuracy or completeness of information in this document.
[2025-03-27] MEDS: 0.9 % SODIUM CHLORIDE 500 ML 50 ML IV (08:00)
[2025-03-27] MEDS: LACTATED RINGER'S SOLUTION 1,000 ML 50 ML IV (08:48)
[2025-03-27 08:58] VITALS: BP 108/79; PULSE 104; O2SAT 96
[2025-03-27 09:16] VITALS: BP 115/72; PULSE 90; O2SAT 98
== END 2025-03-27 09:33 | disposition home or self-care (01) ==
PROVIDERS: PCP Family Medicine; Visit Provider Surgery
PROC: (CPT 00812; principal; 2025-03-27 08:30)
DX: Z12.11 Encounter for screening for malignant neoplasm of colon (principal); Q43.8 Other specified congenital malformations of intestine; I10 Essential (primary) hypertension; E03.9 Hypothyroidism, unspecified; K21.9 Gastro-esophageal reflux disease without esophagitis; F41.1 Generalized anxiety disorder; F32.A Depression, unspecified; R25.1 Tremor, unspecified; M85.80 Other specified disorders of bone density and structure, unspecified site; Z98.84 Bariatric surgery status; Z90.49 Acquired absence of other specified parts of digestive tract; Z98.51 Tubal ligation status; Z90.710 Acquired absence of both cervix and uterus
CPT/HCPCS: 00812; 45378; J2704

== ENCOUNTER 2025-05-10 07:44 | Outpatient (OUT) | payer OTHER, SELFPAY ==
--- NOTE | 2025-05-10 07:45 | NM_ITS ---
The [address] [address] Patient Name: RACHELE MARTINEZ MRN: [id number] date: 1960 Sex: F Assigned Patient Location: [place] Current Patient Location: [place] Accession/Order Number: [id number] Exam Date: 05/10/2025 14:41 Report Date: 05/10/2025 14:44 At the request of: MAXIMUS STEWART NP Procedure: NM bone 3 phase 3 phase BONE SCAN: CLINICAL HISTORY: PROSTHESIS LOOSENING COMPARISON: None TECHNIQUE: Following the intravenous administration of 25.2 mCi of technetium 99m labeled MDP, three-phase bone scan over the knees were obtained. FINDINGS: Symmetrical blood flow images are noted. There is increased uptake on the blood pool and delayed images involving the left knee with central photopenic area suggestive of prosthesis loosening. Presumed prosthesis is also seen involving the right knee. MS/MS bone 3 phase IMPRESSION: INCREASED UPTAKE ON THE BLOOD POOL AND DELAYED IMAGES INVOLVING THE LEFT KNEE WITH CENTRAL PHOTOPENIC AREA SUSPICIOUS OF HARDWARE LOOSENING. PLAIN FILM CORRELATION IS RECOMMENDED. Impression dictated by: Selena Slaughter Jr.OGuerrero 05/10/2025 2:44 PM Dictation Location: [place] [address] Electronically authenticated by: [id number] Y Date: 05/10/2025 14:44
--- OUTSIDE RECORDS SUMMARY | 2025-05-10 07:51 | XMS_ITS | CCD ---
Author Organization [facility] Care Team Providers Care Applications Support Engineer Name Role Phone Aneesh Rider Unavailable Prema Cardona Unavailable Nazanin Valladares Unavailable Vadim Cornejo Unavailable [facility], DR RESENDIZ Consulting Unavailable CLEMENTE, DR VADIM Gonzalez Primary Care Unavailable [facility], DR RESENDIZ Attending Unavailable [facility], DR RESENDIZ Admitting Unavailable BELINDA, DR SANTY Ctaes Consulting Unavailable BELINDA, DR SANTY Cates Attending Unavailable BELINDA, DR SANTY Cates Admitting Unavailable CLEMENTE, DR VADIM Gonzalez Primary Care Unavailable JERSEY MILTON Consulting Unavailable DALLIN HIGGINS Consulting Unavailable CLEMENTE, DR VADIM Gonzalez Primary Care Unavailable DALLIN HIGGINS Attending Unavailable DALLIN HIGGINS Admitting Unavailable DANNIE ARZOLA Consulting Unavailable NUBIA, DR LOC Ctaes Consulting Unavailable CLEMENTE, DR VADIM Gonzalez Primary [...] PETIT Attending Unavailable CEZAR PETIT Admitting Unavailable CEZAR PETIT Consulting Unavailable NALDO, DR CARLITOS Baugh Consulting Unavailable CLEMENTE, DR VADIM Gonzalez Primary Care Unavailable DALLIN HIGGINS Attending Unavailable DALLIN HIGGINS Admitting Unavailable DALLIN HIGGINS Consulting Unavailable NUBIA, DR LOC Cates Consulting Unavailable CLEMENTE, DR VADIM Gonzalez Primary Care Unavailable CLEMENTE, DR VADIM Gonzalez Attending Unavailable CORNEJO, DR VADIM Gonzalez Admitting Unavailable CORNEJO, DR VADIM Gonzalez Consulting Unavailable NALDO, DR CARLITOS Baugh Consulting [...] Care Provider MD Vadim Cornejo Attending Provider Vadim Cornejo Admitting Unavailable Vadim Cornejo Attending Unavailable Vadim Cornejo Primary Care Unavailable Vadim Cornejo MD Primary Care Provider Alejo Zavala MD Primary Care Provider Feliz MASONRY INSPECTOR, Cyndi Unavailable Barrett Ying DO Unavailable Feliz MASONRY INSPECTOR, Cyndi Unavailable [phone] DIAN SORIANO Referring Unavailable Lai LEBORN Attending Unavailable DIAN SORIANO Referring Unavailable Lai LEBRON Attending Unavailable Lai LEBRON Attending Unavailable DIAN SORIANO Attending Unavailable MAXIMUS STEWART Attending Unavailable CYNDI PIPER Attending Unavaildestinee e BARRETT YING Referring Unavailable CYNDI PIPER Attending UnavailMAXIMUS De Luna Referring Unavailable Allergies Allergy Classification Reported Allergen(s) Allergy Type Date of Onset Reaction(s) Facility (20 sources) Ciprofloxacin Drug Allergy 01-11-20 20 Shortness of breath, Angioedema [facility] (20 sources) NITROFURANTOIN, MACROCRYSTALS / Nitrofurantoin, Monohydrate Drug Allergy Unknown [facility] Other (20 sources) venlafaxine; Translations: [Effexor] Drug Allergy Unknown [facility] (2 sources) Ciprofloxacin; Translations: [Cipro] Drug Allergy 10-08-20 15 [facility] (1 source) Nitrofurantoin Drug Allergy 10-08-20 15 [facility] (20 sources) Nitrofurantoin; Translations: [nitrofurantoin] Drug Allergy 01-11-20 Rash, Shortness of breath [facility] (20 sources) venlafaxine; Translations: [venlafaxine] Drug Allergy 01-11-20 20 Shortness of breath [facility] (1 source) Ciprofloxacin Drug Allergy 04-24-20 [facility] Repository (2 sources) Allergies Reconciled Propensity to adverse reactions Unknown [place] [facility] Other (20 sources) Baclofen; Translations: [baclofen] Drug [...] tablet by mouth twice daily as needed [place] 5-325 MG 1 tablet as needed Orally twice daily for 7 days G89.29 Chronic pain Oct, Active alendronic acid 70 mg oral tablet (20 sources) Bisphosphonate Start: 03-29-2024 End: 02-26-2026 take [...] tablet (20 sources) Benzodiazepine Start: 01-25-2025 End: 05-21-2025 ALPRAZolam (Xanax) 0.25 MG tablet Indications: Generalized anxiety disorder Take 1 tablet (0.25 mg) by mouth as needed at bedtime for anxiety 30 tablet 1 04/21/2025 05/21/2025 Active Start: 12-30-2024 ALPRAZolam (Xa nax) 0.25 [...] Alprazolam Active 0.25 MG PO Twice daily February 17, 2024 10:26am Start: 06-03-2023 End: [...] tablet (20 sources) beta-Adrenergic Sarah Start: 01-04-2025 End: 07-28-2025 take 1 tablet by mouth once daily atenolol (Tenormin) 50 MG tablet Indications: Primary hypertension Take 1 tablet (50 mg) by mouth Daily 90 tablet 04/29/2025 07/28/2025 Active Start: 01-02-2024 take 1 tablet by [...] Transdermal Two times a Week Active [place] Eric-Jadyn garcia Fezolinetant (Veozah) 45 MG tablet (4 sources) [...] (Lasix) 40 MG tablet Indications: Primary hypertension Take 1 tablet (40 mg) by mouth Daily 30 tablet 3 01/04/2025 Active Start: 04-24-2020 take 40 mg by mouth once daily Furosemide Active 40 MG PO Daily April 24, 2020 12:00am levothyroxine sodium 0.075 mg oral tablet (20 sources) l-Thyroxine Start: 03-20-2025 End: 06-18-2025 take 1 tablet by mouth before mealtime levothyroxine (Synthroid, Levoxyl) 75 MCG tablet Indications: Adult hypothyroidism Take 1 tablet (75 mcg) by mouth [...] 24, 2020 12:00am take 1 capsule by [facility] every twenty-four hours Omeprazole 40 MG 1 capsule Orally Once a day Active polyethylene glycol 3350 53668 mg powder for oral solution (20 sources) Osmotic Laxative Start: 04-24-2020 take 17 [...] TAB PO Daily April 24, 2020 12:00am March 19, 2024 11:10am Start: 04-24-2020 take 1 [...] 2020 12:00am March 19, 2024 11:12am sennosides, custodial 8.6 mg oral tablet (2 sources) Start: 05-03-2020 End: 03-19-2024 take 2 tablets by mouth twice daily Sennosides (Senna Lax) 8.6 mg Tablet Discontinued 2 TAB PO Twice daily 56 14 May 03, 2020 12:00am March 19, [...] foot] Onset: 10-02-2022 Resolved: 02-28-2025 Chronic Other connective tissue disease (20 sources) History [...] disorders of vagina Episodic Other gastrointestinal disorders (20 sources) Irritable bowel syndrome; Translations: [Irritable bowel [...] tendon, initial encounter] 12-26-2023 Episodic Thyroid disorders (14 sources) Hypothyroidism; Translations: [Hypothyroidism, unspecified] Onset: 06-29-2023 [...] 01-30-2024 Episodic Other aftercare (1 source) Other intermediate (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; Translations: [OTH USP CURRENT DRUG THERAPY] Onset: 10-20-2022 Episodic Other bone disease and musculoskeletal deformities (12 sources) Osteopenia; Translations: [Other specified disorders of bone density and structure, unspecified site] Onset: 12-28-2024 02-28-2025 Episodic Other circulatory disease (20 sources) Elevated [...] Onset: 11-02-2022 Episodic Other female genital disorders (20 sources) Vaginal discharge; Translations: [Other specified noninflammatory [...] Unclassified (2 sources) Patient encounter status 02-28-2025 Unclassified (2 sources) Acute pain of left knee 04-01-2025 Urinary tract infections (20 sources) Urinary tract infectious disease; Translations: [Urinary tract infection, site not specified] Onset: 06-29-2023 Resolved: 02-01-2025 06-29-2023 Episodic Results Test Name Value Interpretation Reference Range Facility XR Knee - left 1 or 2 Viewso n 04-01-2025 Imaging Result: 04/01/2025: Standing AP and LAT of left knee showed surgical position and alignment of prosthetic components without evidence of loosening or wear to the femoral, tibial, or patellar components. The alignment appeared to be anatomic. There was no evidence of accelerated or asymmetric wear to the patellar button or tibial tray. There was no evidence of fracture and/or dislocation. Impression: Stable LT total knee replacement. Maximus Stewart APRN, MASONRY INSPECTOR-C [facility] JumpSoftcar e Radiology Study observation (narrative) [facility] Reminderson 03-29-2025 Reminders Reminders From: Radha Son LPN To: GSN - Clinical; Sent: 03/29/2025 11:54:43 EDT Show up: 02/25/2035 07:00:00 EDT Subject: colonoscopy recall Due Date/Time: 03/27/2035 07:00:00 EDT Reminder/Recall Patient due for screening colonoscopy 03/27/2035. Lisa Ling [facility] Ambulatory Visit Summaryon 0 03-12-2025 Ambulatory Visit Summary Ambulatory Visit Summary RACHELE FLORES :1960 Visit Date:03/12/2025 Ambulatory Visit Instructions Your Diagnosis Screening for malignant neoplasm of colon Your Care Team Attending Physician - VI ALMARAZ, Lai Cates Primary Care Physician - BO SANDHU, DIAN Pink Referring Physician - DIAN SORIANO CNP This [...] for choosing us for your care. Normal [facility] BI MAMMOGRAM SCREENING TOMOS YNTHESIS BILATERALon 09-26-2024 BI MAMMOGRAM SCREENING TOMOSYNTHESIS BILATERAL [...] DNA Probe+sig amp Ql (Cvx) Negative Negative [facility] Comment on above: This nucleic acid am plification test detects fourteen high- risk HPV types (16,18,31,33,35,39,45,51,52,56,58,59,66,68)without differentiation.Performed at: = - [facility] [id number] Director: Theodora Lowe MD, Phone: [phone] at: - [facility] [address] [id number] Director: Theodora Lowe MD, Phone: [phone] Laboratory - Chemistry and C hemistry - challengeon 03-12-2024 ALT [Catalytic activity/Vol] 31 U/L [facility] AST [Catalytic activity/Vol] 23 U/L 15 [facility] No Panel Informationon 03-12 HPV High Risk Other Comment Note . [facility] Comment on above: TESTS RESULT FLAG UN ITS REF RANGE LAB MERE GNOSIS: 02 NEGATIVE FOR INTRAEPITHELIAL LESION OR MALIGNANCY.Specimen adequacy: 02 Satisfactory for evaluation.Performed by: 02 Louis Ferreira Nutritional Services Director (ASCP). 02Note: Note 02 The Pap smear is [...] High <-Panic Low,>-Panic High,A-Abnormal,AA-Critical Abnormal --Performed at:[address] [facility] [phone] Theodora Lowe MD, Reference Lab Test Patient Age Note . [facility] Comment on above: TESTS RESULT FLAG UN ITS REF RANGE LAB Clinician Provided Cytology Information Source.............Vagina No. of containers..01 ThinPrep VialAge Hayde GARCIA Dyan... 30 FLAG LEGEND: L-Low Normal,H-High Normal,LL-Alert Low,HH-Alert High <-Panic Low,>-Panic High,A-Abnormal,AA-Critical Abnormal --Performed at:01 [facility] [phone] Theodora Lowe MD, XR Knee - left [...] dislocation. Impression: Unremarkable left total knee arthroplasty. [email or web address] XR Knee - left 1 or 2 ViewsO rdered By: Jr. Quesada on 12-28-2023 Bass Managercar e Work Phone: XR Knee - left 1 or 2 Viewso n 12-26-2023 Radiology Study observation (narrative) [facility] Vaginitis (VG)on 03-03-2023 Atopobium Vaginae Low - 0 Normal . [facility] Comment on above: Performed By: #### V AGINITIS #### [facility] , BVAB2 Low - 0 Normal . [facility] Comment on above: Performed By: #### V AGINITIS #### [facility] , Yoly Albicans, LARRY Negative Normal Negative [facility] Comment on above: Result Comment: This test was developed and its performance characteristics determined by [employer]. It has not been cleared or approved by the Food and Drug Administration. Performed By: #### V AGINITIS #### [facility] , Yoly Glabrata, LARRY Negative Normal Negative [facility] Comment on above: Result Comment: This test was developed and its performance characteristics determined by [employer]. It has not been cleared or approved by the Food and Drug Administration. PERFORMED BY: [facility] [place] [address] PATHOLOGIST PRINTING MECHANIST PENELOPE HANSON M.D. Performed By: #### V AGRADHA #### [facility] , Megasphaera Low - 0 Normal . [facility] Comment on above: Result Comment: Calc ulate [...] developed and its performance characteristics determined by [employer]. It has not been cleared or approved by the Food and Drug Administration. Performed By: #### V AGRADHA #### [facility] , Tric Vag LARRY Negative Normal Negative [facility] Comment on above: Result Comment: Perf ormed at: =G - [facility] [place] [address], [place] [id number] Fermenter Operator: Theodora Lowe MD, Phone: [phone] Performed By: #### V STEW #### [facility] [...] CARLITOS PIÑA Date: 2022-11-23 22:41 Normal [facility] CBC AUTO DIFFon 11-02-2022 BASO # 0.1 103/ul Normal 0.0-0.1 [facility] Comment on above: Performed By: #### C BC ####[facility] [address] [place] [id number]. Major Kaye Basophils/100 WBC (Bld) 1.1 % Normal 0.2-2.0 [facility] Comment on above: Performed By: #### C BC ####[facility] [address] [place], [place] [id number]. Major Kaye EO # 0.2 103/ul Normal 0.0-0.7 [facility] Comment on above: Performed By: #### C BC ####[facility] [address] [place], [place] [address]Dr. Major Kaye Eosinophils/100 WBC (Bld) 3.2 % Normal 0.9-7.0 [facility] Comment on above: Performed By: #### C BC ####[facility] [address] [place], [place] [address]Dr. Major Kaye Erythrocyte distribution width (RBC) [Ratio] 13.2 % Normal 11.0-15.0 [facility] Comment on above: Performed By: #### C BC ####[facility] [address] [place], [place] [address]Dr. Major Kaye Hematocrit (Bld) [Volume fraction] 37.9 % Normal 36.0-48.0 [facility] Comment on above: Performed By: #### C BC ####[facility] [address] [place], [place] [address]Dr. Major Kaye Hemoglobin (Bld) [Mass/Vol] 12.0 g/dL Normal 12.0-16.0 [facility] Comment on above: Performed By: #### C BC ####[facility] [address] [place], [place] [address]Dr. Major Kaye IG # 0.02 10e3/ul Normal 0.00-0.03 [facility] Comment on above: Performed By: #### C BC ####[facility] [address] [place], [place] [address]Dr. Major Kaye IG % 0.4 % Normal 0.0-0.5 [facility] Comment on above: Performed By: #### C BC ####[facility] [address] [place] [phone]. Major Kaye LYMPH # 1.5 103/ul Normal 1.2-3.8 [facility] Comment on above: Performed By: #### C BC ####[facility] [address]xbpnwh[address] [place] [phone]. Major Vargas Lymphocytes/100 WBC (Bld) 26.4 % Normal 20.5-60.0 [facility] Comment on above: Performed By: #### C BC ####[facility] I[address]rszj[address] [place] [phone]. Major Vargas MANUAL DIFF REQ NO Normal [facility] Comment on above: Performed By: #### C BC ####[facility] A[address]qs[address] [place] [phone]. Major Vargas MCH (RBC) [Entitic mass] 29.6 pg Normal 26.7-34.0 [facility] Comment on above: Performed By: #### C BC ####[facility] Etiltanpms[address] [place] [phone]. Major Kaye MCHC (RBC) [Mass/Vol] 31.7 g/dL Normal 29.9-35.2 [facility] Comment on above: Performed By: #### C BC ####[facility] Xeebziusrm[address] [place] [phone]. Major Vargas MCV (RBC) [Entitic vol] 93.3 fL Normal 81.0-99.0 [facility] Comment on above: Performed By: #### C BC ####[facility] Ymtmufem[address] [place] [phone]. Major Kaye MONO # 0.4 103/ul Normal 0.3-0.8 [facility] Comment on above: Performed By: #### C BC ####[facility] X[address]fldqlbi[address] [place] [phone]. Major Vargas Monocytes/100 WBC (Bld) 7.6 % Normal 1.7-12.0 [facility] Comment on above: Performed By: #### C BC ####[facility] V[address]avziewma[address] [place] [phone]. Major Kaye NEUT # 3.4 103/ul Normal 1.4-6.5 [facility] Comment on above: Performed By: #### C BC ####[facility] [address]hb[address] [place], [place] [address]Py. Major Kaye Neutrophils/100 WBC (Bld) 61.3 % Normal 43.0-75.0 [facility] Comment on above: Performed By: #### C BC ####[facility] C[address]iy[address]eql[address] [place] [phone]. Major Kaye Platelet mean volume (Bld) [Entitic vol] 9.5 fL Normal 9.5-13.5 [facility] Comment on above: Performed By: #### C BC ####[facility] E[address]otgbi[address] [place] [phone]. Major Kaye PLT 350 103/ul Normal 150-450 [facility] Comment on above: Performed By: #### C BC ####[facility] Y[address]uy[address] [place] [phone]. Major Kaye RBC 4.06 106/ul Critically low 4.20-5.40 [facility] Comment on above: Performed By: #### C BC ####[facility] Kojqcvuhxm[address] [place] [phone]. Major Kaye WBC 5.6 103/ul Normal 4.0-11.0 [facility] Comment on above: Performed By: #### C BC ####[facility] Exuc[address] [place] [phone] Kaye POINT OF CARE GLUCOSEon 09-15 Glucose [Mass/Vol] 146 mg/dL Critically high 74-106 [facility] Comment on above: Performed By: #### P OCGLUC #### [facility] [address] [place], [place] [address] Dr. Major Kaye Glucose [Mass/Vol] 111 mg/dL Critically high 74-106 [facility] Comment on above: Performed By: #### P OCGLUC ####[facility] Xvosuzdcdq[address] [place] [phone]. Major Kaye CBC AUTO DIFFon 09-28-2022 BASO # 0.1 103/ul Normal 0.0-0.1 [facility] Comment on above: Performed By: #### C BC ####[facility] [address] [place] [address]Dr. Major Kaye Basophils/100 WBC (Bld) 0.7 % Normal 0.2-2.0 [facility] Comment on above: Performed By: #### C BC ####[facility] [address] [place], [place] [address]Dr. Major Kaye EO # 0.2 103/ul Normal 0.0-0.7 [facility] Comment on above: Performed By: #### C BC ####[facility] [address] [place], [place] [address]Dr. Major Vargas Eosinophils/100 WBC (Bld) 2.0 % Normal 0.9-7.0 [facility] Comment on above: Performed By: #### C BC ####[facility] [address] [place], [place] [address]Dr. Major Kaye Erythrocyte distribution width (RBC) [Ratio] 12.7 % Normal 11.0-15.0 [facility] Comment on above: Performed By: #### C BC ####[facility] [address] [place], [place] [address]Dr. Major Kaye Hematocrit (Bld) [Volume fraction] 35.7 % Critically low 36.0-48.0 [facility] Comment on above: Performed By: #### C BC ####[facility] [address] [place], [place] [address]Dr. Major Kaye Hemoglobin (Bld) [Mass/Vol] 11.6 g/dL Critically low 12.0-16.0 [facility] Comment on above: Performed By: #### C BC ####[facility] [address]cn[address]cl[address] [place], [place] [address]Dr. Yinkendra Kaye IG # 0.02 10e3/ul Normal 0.00-0.03 [facility] Comment on above: Performed By: #### C BC ####[facility] [address] [place] [address]Dr. Major Kaye IG % 0.3 % Normal 0.0-0.5 [facility] Comment on above: Performed By: #### C BC ####[facility] [address] [place] [address]Dr. Major Kaye LYMPH # 1.7 103/ul Normal 1.2-3.8 [facility] Comment on above: Performed By: #### C BC ####[facility] [address]ta[address] [place] [address]Dr. Major Kaye Lymphocytes/100 WBC (Bld) 23.4 % Normal 20.5-60.0 [facility] Comment on above: Performed By: #### C BC ####[facility] [address] [place], [place] [address]Dr. Major Kaye MANUAL DIFF REQ NO Normal [facility] Comment on above: Performed By: #### C BC ####[facility] J[address] [place] [phone]. Major Kaye MCH (RBC) [Entitic mass] 30.4 pg Normal 26.7-34.0 [facility] Comment on above: Performed By: #### C BC ####[facility] [address]emmhuxfs[address] [place] [phone]. Major Kaye MCHC (RBC) [Mass/Vol] 32.5 g/dL Normal 29.9-35.2 [facility] Comment on above: Performed By: #### C BC ####[facility] [address] [place], [place] [address]DrGuerrero Kaye MCV (RBC) [Entitic vol] 93.5 fL Normal 81.0-99.0 [facility] Comment on above: Performed By: #### C BC ####[facility] By[address]arcmic[address] [place] [address]DrGuerrero Kaye MONO # 0.4 103/ul Normal 0.3-0.8 [facility] Comment on above: Performed By: #### C BC ####[facility] [address]cp[address]xt[address] [place] [phone]. Major Kaye Monocytes/100 WBC (Bld) 5.2 % Normal 1.7-12.0 [facility] Comment on above: Performed By: #### C BC ####[facility] [address] [place] [phone]. Major Kaye NEUT # 5.0 103/ul Normal 1.4-6.5 [facility] Comment on above: Performed By: #### C BC ####[facility] Sngdotivrv[address] [place] [phone]. Major Kaye Neutrophils/100 WBC (Bld) 68.4 % Normal 43.0-75.0 [facility] Comment on above: Performed By: #### C BC ####[facility] V[address]vnwcjqlr[address] [place] [phone]. Major Kaye Platelet mean volume (Bld) [Entitic vol] 10.0 fL Normal 9.5-13.5 [facility] Comment on above: Performed By: #### C BC ####[facility] Q[address]ipp[address] [place] [phone]. Major Kaye PLT 297 103/ul Normal 150-450 [facility] Comment on above: Performed By: #### C BC ####[facility] Seg[address]az[address] [place] [phone]. Major Kaye RBC 3.82 106/ul Critically low 4.20-5.40 [facility] Comment on above: Performed By: #### C BC ####[facility] Vqhbwafljp[address] [place] [phone]. Major Kaye WBC 7.3 103/ul Normal 4.0-11.0 [facility] Comment on above: Performed By: #### C BC ####[facility] Z[address]wk[address] [place] [phone]. Major Kaye [facility]14 SARS-CoV-2 (COVID-19) RNA LARRY+probe Ql (Unsp spec) Not detected Normal NOT DETECTED [facility] Comment on above: Result Comment: This test is not yet approved or cleared by the [place] FDA. When there are no FDA-approved or cleared tests available, and other criteria are met, FDA can make tests available under an emergency access mechanism called an Emergency Use Authorization (EUA). The EUA for this test is supported by the Supervisor [employer] Production of Health and Human Service's (HHS's) declaration [...] consistent with SARS-CoV-2. Performed By: #### C VDTB #### [facility] [address] [place] [address] Dr. Major Kaye PROF CHEM 8 (BAS METB)on Anion gap [Moles/Vol] 8.8 mmol/L Normal [facility] Comment on above: Performed By: #### B MP #### [facility] [address] [place] [address] Dr. Major Kaye Calcium [Mass/Vol] 8.2 mg/dL Critically low 8.5-10.1 [facility] Comment on above: Performed By: #### B MP #### [facility] [address] [place] [address] Dr. Major Kaye Chloride [Moles/Vol] 104 mmol/L Normal 98-107 [facility] Comment on above: Performed By: #### B MP #### [facility] [address] [place] [address] Dr. Major Kaye CO2 [Moles/Vol] 28.4 mmol/L Normal 21.0-32.0 [facility] Comment on above: Performed By: #### B MP #### [facility] [address] [place] [address] [address] Major Kaye Creatinine [Mass/Vol] 0.56 mg/dL Normal 0.55-1.02 [facility] Comment on above: Performed By: #### B MP #### [facility] [address] [place] [address] [address] Major Kaye EGFR-AF CHILEAN >60 Normal >=60 [facility] Comment on above: Performed By: #### B MP #### [facility] [address] [place] [address] [address] Major Kaye EGFR-NON AF CHILEAN >60 Normal >=60 [facility] Comment on above: Performed By: #### B MP #### [facility] [address] [address] [address] Major Kaye Glucose [Mass/Vol] 95 mg/dL Normal 74-106 [facility] Comment on above: Performed By: #### B MP #### [facility] [address] [address] [address] Major Kaye Potassium [Moles/Vol] 4.2 mmol/L Normal 3.5-5.1 [facility] Comment on above: Performed By: #### B MP #### [facility] [address] [place] [address] Dr. Major Kaye Sodium [Moles/Vol] 137 mmol/L Normal 136-145 [facility] Comment on above: Performed By: #### B MP #### [facility] [address] [address] [address] Major Kaye Urea nitrogen [Mass/Vol] 11.0 mg/dL Normal 7.0-18.0 [facility] Comment on above: Performed By: #### B MP #### [facility] [address] [place] [address] Dr. Major Kaye Urea nitrogen/Creatinine [Mass ratio] 19.6 mg/mg Normal [facility] Comment on above: Performed By: #### B MP #### [facility] [address] [address] [address] Major Kaye XR LSPINE MIN 4 VIEWSon 09-2 2-2022 XR LSPINE MIN 4 VIEWS EXAMINATION: XR [...] LOC DELACRUZ Date: 2022-08-05 14:26 Normal [facility] SCREENING MAMMOGRAM W/ANU, BILATERAL*on 07-15-2022 SCREENING MAMMOGRAM [...] VERY IMPORTANT TO YOUR HEALTH. THE CURRENT [employer] GUIDELINES RECOMMENDS ANNUAL MAMMOGRAPHY BEGINNING AT AGE 42 THIS FACILITY USES A REMINDER SYSTEM TO ENSURE ALL PATIENTS RECEIVE REMINDER NOTIFICATIONS AT THE APPROPRIATE TIME BASED ON THE RECOMMENDATIONS OF THIS EXAM. Report reported and signed by Chad Montgomery on 07/15/2022 0945 Normal [facility] Electric System Operator CNOVon 01-11-2020 CNOV Office Visit (PAINLN ) RACHELE FLORES ([id number]) 1960 F Date Time Provider Department 01/11/20 8:30 AM CESAR GUERRERO During your visit today, we recorded the following information about you: Pulse Weight Height 99/minute 64.9 kg 1.575 m Cesar Guerrero DO 01/11/2020 10:29 AM Signed [facility] Initial Evaluation January 11, 2020 This appointment was requested by Adelia Vega, for my medical opinion regarding? the evaluation and management of the patient's Rachele Flores problems, and my final recommendations will be communicated to the requesting health care provider by way of the shared medical record for internal providers or letter via the [employer] for external providers. 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 Regional Office Coordinator: No Passive conservative therapy lasting 6 weeks [...] area with pain radiates to the right adventism Back: No pain on palpation of the [...] neck pain that radiates to the right adventism with occasional twitches of her right eyebrow. She had multiple occipital nerve blocks which helps but not for intermediate.She have tried multiple medications including gabapentin , [...] to participate in Rachele Flores's care. Cesar Guerrero, DO January 09, 2020 Referring Provider: ANJANA [...] right side [M54.81] Order(s):CONSULT TO PAIN MGT [[id number]] Order #: [id number]: 1 Prescriptions as of 01/11/2020 Sig: LISINOPRIL [...] by CESAR GUERRERO DO on 01/11/20 Normal [facility] MRI BRAIN WO/W IVCONon 01-11 MRI BRAIN WO/W IVCON * * *Final Report* * * DATE OF EXAM: Jan 11 2020 10:37AM LNM [id number] - MRI BRAIN WO/W IVCON / [...] UNREMARKABLE MRI BRAIN WITH AND WITHOUT CONTRAST. 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 Author Type: Auto Cleaner Type: Progress Notes Filed: 01/11/2020 10:37 AM [...] January 11, 2020 TIME: 10:29 AM Normal [facility] PROGRESS HNO ID: [id number] Author: Cesar Guerrero Service: ? Author Type: Physician Type: Progress Notes Filed: 01/11/2020 10:29 AM Note Text: [facility] Initial Evaluation January 11, 2020 This appointment was requested by Adelia Vega, for my medical opinion regarding? the evaluation and management of the patient's Rachele Flores problems, and my final recommendations will be communicated to the requesting health care provider by way of the shared medical record for internal providers or letter via the [employer] for external providers. 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 Regional Office Coordinator: No Passive conservative therapy lasting 6 weeks [...] area with pain radiates to the right adventism Back: No pain on palpation of the [...] neck pain that radiates to the right adventism with occasional twitches of her right eyebrow. She had multiple occipital nerve blocks which helps but not for intermediate.She have tried multiple medications including gabapentin , [...] Cesar Guerrero DO January 09, 2020 Normal [facility] CNOVon 12-10-2019 CNOV Office Visit (NEHEMIAS ) RACHELE FLORES ([id number]) 1960 F Date Time Provider Department 12/10/19 9:30 AM ANJANA VEGA During your visit today, we recorded the following information about you: Pulse Blood pressure Weight Height 107/minute 129/87 67.6 kg 1.575 m Anjana Vega MD 12/10/2019 5:27 PM Signed Bry Mendez MD [address] [place], [place] [address] PCP: No primary care provider on file. [...] Did not have headaches much growing up. 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 Short and intermediate memory, cognition and general fund of knowledge [...] visit Zaida Romo MD PGY-3 Neurology Resident [id number] December 10, 2019 8:36 AM Total time [...] pain, and counseling about diet, medications, and intermediate implications. The patient has my contact information [...] Device, open up the Demetra Store or [employer] and search [facility] [employer] Online ? Download and Install the Application ? Tap on Sign Up and create a patient account for yourself ? Please use an e-mail address that you frequently check, as you will receive an e-mail appointment from [facility] [employer] Care Online ? Find our user guide, here: [email or web address] Or, on a desktop/laptop computer that has a webcam connected, go to the URL: [email or web address] ? Click on Sign Up and Create a patient account for yourself ? Please also follow the links to ?Test My Computer? ? Follow the steps suggested, testing your Internet Speed, Webcam, Microphone, Speaker, and your video software. ? Please make sure your video software is up-to-date. This is a safe, [facility] approved download, and will not harm [...] to the provider. ? Please call the [facility] [employer] Services at [phone] or toll free [phone] prior to your visit if you need help setting up your device. ? Referring Provider: BRY MENDEZ [[id number]] Allergies As of Date: 12/10/2019 (No Known [...] 90 tabletRfl: 11 CONSULT TO PAIN MGT [[id number]] Order #: [id number]: [id number] FUTURE MRI BRAIN WO/W IVCON [[id number]] Order #: [id number] FUTURE iv contrast (will be provided with [...] travel to our facility. ? This service, [employer] Online is easily accessible through your mobile device or a desktop/laptop with a browser and internet connection. HOW DO I GET STARTED? ? On an iPhone, iPad, or Android Device, open up the [employer] or [employer] and search [facility] [employer] Online ? Download and Install the Application ? Tap on Sign Up and create a patient account for yourself ? Please use an e-mail address that you frequently check, as you will receive an e-mail appointment from [facility] [employer] Online ? Find our user guide, here: [email or web address] Or, on a desktop/laptop computer that has a webcam connected, go to the URL: [facility] [email or web address] ? Click on Sign Up and Create a patient account for yourself ? Please also follow the links to ?Test My Computer? ? Follow the steps suggested, testing your Internet Speed, Webcam, Microphone, Speaker, and your video software. ? Please make sure your video software is up-to-date. This is a safe, [facility] approved download, and will not harm [...] to the provider. ? Please call the [facility] [employer] at [phone] or toll free [phone] prior to your visit if you need [...] Status:Closed by ANJANA VEGA MD on 12/10/19 [facility] PROGRESSon 12-10-2019 PROGRESS HNO ID: [id number] Author: Anjana Vega Service: ? Author Type: Physician Type: Progress Notes Filed: 12/10/2019 5:27 PM Note Text: Bry Mendez MD [address] [place] [id number] PCP: No primary care provider on file. [...] Did not have headaches much growing up. 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 Short and intermediate memory, cognition and general fund of knowledge [...] Tricep 2/4 2/4 BrRad 2/4 2/4 Knee /11/17 Ankle /11/17 Babinski: bilaterally down-going toes Pathological Reflexes: absent. [...] visit Zaida Romo MD PGY-3 Neurology Resident [id number] December 10, 2019 8:36 AM Total time [...] pain, and counseling about diet, medications, and intermediate implications. The patient has my contact information [...] as outlined above. MD Anjana Cherry MD [facility] Vital Signs Date Time Vital Sign Value Performing Clinician Zoë lyons 02-28-2025 08:58-0400 Body mass index (BMI) [Ratio] 29.7 kg/m2 Dian Soriano MASONRY INSPECTOR Work Phone: [facility] 02-28-2025 08:58-0400 Body temperature 98.8 [degF] Dian Soriano MASONRY INSPECTOR Work Phone: [facility] 02-28-2025 08:58-0400 Body weight 73.66 kg Dian Soriano MASONRY INSPECTOR Work Phone: [facility] 02-28-2025 08:58-0400 Diastolic blood pressure 82 mm[Hg] Dian Soriano MASONRY INSPECTOR Work Phone: [facility] 02-28-2025 08:58-0400 Heart rate 84 /min Dian Aichholz MASONRY INSPECTOR Work Phone: [facility] 02-28-2025 08:58-0400 Respiratory rate 18 /min Dian Soriano MASONRY INSPECTOR Work Phone: [facility] 02-28-2025 08:58-0400 SaO2% (BldA) [Mass fraction] 98 % Dian Soriano MASONRY INSPECTOR Work Phone: [facility] 02-28-2025 08:58-0400 Systolic blood pressure 116 mm[Hg] Dian Soriano MASONRY INSPECTOR Work Phone: [facility] 11-29-2024 08:56-0500 Body height 157.5 cm Cyndi Piper MASONRY INSPECTOR Work Phone: [facility] 11-29-2024 08:56-0500 Body mass index (BMI) [Ratio] 26.16 kg/m2 Cyndi Piper MASONRY INSPECTOR Work Phone: [facility] 11-29-2024 08:56-0500 Body temperature 96.8 [degF] Cyndi Piper MASONRY INSPECTOR Work Phone: [facility] 11-29-2024 08:56-0500 Body weight 64.86 kg Cyndi Piper MASONRY INSPECTOR Work Phone: [facility] 11-29-2024 08:56-0500 Diastolic blood pressure 80 mm[Hg] Cyndi Piper MASONRY INSPECTOR Work Phone: [facility] 11-29-2024 08:56-0500 Heart rate 109 /min Cyndi Piper MASONRY INSPECTOR Work Phone: [facility] 11-29-2024 08:56-0500 Respiratory rate 16 /min Cyndi Piper MASONRY INSPECTOR Work Phone: [facility] 11-29-2024 08:56-0500 SaO2% (BldA) [Mass fraction] 99 % Cyndi Piper MASONRY INSPECTOR Work Phone: [facility] 11-29-2024 08:56-0500 Systolic blood pressure 118 mm[Hg] Cyndi Piper MASONRY INSPECTOR Work Phone: [facility] 08-06-2024 09:48-0400 Body height 157.5 cm Cyndi Piper MASONRY INSPECTOR Work Phone: [facility] 08-06-2024 09:48-0400 Body mass index (BMI) [Ratio] 27.44 kg/m2 Cyndi Piper MASONRY INSPECTOR Work Phone: [facility] 08-06-2024 09:48-0400 Body temperature 98.4 [degF] Cyndi Piper MASONRY INSPECTOR Work Phone: [facility] 08-06-2024 09:48-0400 Body weight 68.04 kg Cyndi Piepr MASONRY INSPECTOR Work Phone: [facility] 08-06-2024 09:48-0400 Diastolic blood pressure 80 mm[Hg] Cyndi Piper MASONRY INSPECTOR Work Phone: [facility] 08-06-2024 09:48-0400 Heart rate 97 /min Cyndi Piper MASONRY INSPECTOR Work Phone: [facility] 08-06-2024 09:48-0400 SaO2% (BldA) [Mass fraction] 99 % Cyndi Piper MASONRY INSPECTOR Work Phone: [facility] 08-06-2024 09:48-0400 Systolic blood pressure 114 mm[Hg] Cyndi Piper MASONRY INSPECTOR Work Phone: [facility] 03-19-2024 11:04-0400 Body height 156.21 cm [facility] 03-19-2024 11:04-0400 Body mass index (BMI) [Ratio] 28.6 kg/m2 [facility] 03-19-2024 11:04-0400 Body weight 69.85 kg [facility] 03-19-2024 11:04-0400 Diastolic blood pressure 90 mm[Hg] [facility] 03-19-2024 11:04-0400 Heart rate 96 /min [facility] 03-19-2024 11:04-0400 Systolic blood pressure 125 mm[Hg] [facility] 11-15-2023 09:45-0500 Body height 156.21 cm Vadim Cornejo Other [facility] Other 11-15-2023 09:45-0500 Body mass index (BMI) [Ratio] 28.07 kg/m2 aVdim Cornejo Other [facility] Other 11-15-2023 09:45-0500 Body weight 68.49 kg Vadim Cornejo Other [facility] Other 11-15-2023 09:45-0500 Diastolic blood pressure 78 mm[Hg] Vadim Cornejo Other [facility] Other 11-15-2023 09:45-0500 Systolic blood pressure 118 mm[Hg] Vadim Cornejo Other [facility] Other 03-03-2023 10:15-0400 Body height 156.21 cm Vadim Cornejo Other [facility] Other 03-03-2023 10:15-0400 Body mass index (BMI) [Ratio] 29.37 kg/m2 Vadim Cornejo Other [facility] Other 03-03-2023 10:15-0400 Body weight 71.67 kg Vadim Cornejo Other [facility] Other 03-03-2023 10:15-0400 Diastolic blood pressure 78 mm[Hg] Vadim Cornejo Other [facility] Other 03-03-2023 10:15-0400 SaO2% (BldA) [Mass fraction] 97 % Vadim Cornejo Other [facility] Other 03-03-2023 10:15-0400 Systolic blood pressure 116 mm[Hg] Vadim Cornejo Other [facility] Other 05-27-2022 12:45-0400 Body height 157.48 cm Nazanin Valladares Other [facility] Other 05-27-2022 12:45-0400 Body mass index (BMI) [Ratio] 27.4 kg/m2 Nazanin Valladares Other [facility] Other 05-27-2022 12:45-0400 Body weight 67.95 kg Nazanin Valladares Other [facility] Other 05-27-2022 12:45-0400 Diastolic blood pressure 66 mm[Hg] Nazanin Valladares Other [facility] Other 05-27-2022 12:45-0400 Respiratory rate 18 /min Nazanin Valladares Other [facility] Other 05-27-2022 12:45-0400 SaO2% (BldA) [Mass fraction] 99 % Nazanin Valladares Other [facility] Other 05-27-2022 12:45-0400 Systolic blood pressure 118 mm[Hg] Nazanin Valladares Other [facility] Other 05-07-2022 10:45-0400 Body height 157.48 cm Aneesh Rider Other [facility] Other 05-07-2022 10:45-0400 Body mass index (BMI) [Ratio] 27.43 kg/m2 Aneesh Rider Other [facility] Other 05-07-2022 10:45-0400 Body weight 68.04 kg Aneesh Rider Other [facility] Other 05-07-2022 10:45-0400 Diastolic blood pressure 70 mm[Hg] Aneesh Rider Other [facility] Other 05-07-2022 10:45-0400 SaO2% (BldA) [Mass fraction] 95 % Aneesh Rider Other [facility] Other 05-07-2022 10:45-0400 Systolic blood pressure 122 mm[Hg] Aneesh Rider Other [facility] Other 04-20-2022 10:15-0400 Body height 157.48 cm Aneesh Rider Other [facility] Other 04-20-2022 10:15-0400 Body mass index (BMI) [Ratio] 27.1 kg/m2 Aneesh Rider Other [facility] Other 04-20-2022 10:15-0400 Body weight 67.22 kg Aneesh Rider Other [facility] Other 04-20-2022 10:15-0400 Diastolic blood pressure 80 mm[Hg] Aneesh Rider Other [facility] Other 04-20-2022 10:15-0400 SaO2% (BldA) [Mass fraction] 99 % Aneesh Rider Other [facility] Other 04-20-2022 10:15-0400 Systolic blood pressure 142 mm[Hg] Aneesh Tereso Other [facility] Other 04-02-2022 11:30-0400 Body height 157.48 cm Aneesh Rider Other [facility] Other 04-02-2022 11:30-0400 Body mass index (BMI) [Ratio] 27.07 kg/m2 Aneesh Rider Other [facility] Other 04-02-2022 11:30-0400 Body weight 67.13 kg Aneesh Rider Other [facility] Other 04-02-2022 11:30-0400 Diastolic blood pressure 60 mm[Hg] Aneesh Rider Other [facility] Other 04-02-2022 11:30-0400 Systolic blood pressure 120 mm[Hg] Aneesh Rider Other [facility] Other 12-22-2021 10:00-0500 Body height 157.48 cm Aneesh Rider Other [facility] Other 12-22-2021 10:00-0500 Body mass index (BMI) [Ratio] 26.7 kg/m2 Aneesh Rider Other [facility] Other 12-22-2021 10:00-0500 Body weight 66.23 kg Aneesh Rider Other [facility] Other 12-22-2021 10:00-0500 Diastolic blood pressure 82 mm[Hg] Aneesh Tereso Other [facility] Other 12-22-2021 10:00-0500 SaO2% (BldA) [Mass fraction] 95 % Aneesh Rider Other [facility] Other 12-22-2021 10:00-0500 Systolic blood pressure 128 mm[Hg] Aneesh Rider Other [facility] Other 09-24-2021 10:00-0500 Body height 157.48 cm Prema Brendan Other [facility] Other 09-24-2021 10:00-0500 Body mass index (BMI) [Ratio] 26.34 kg/m2 Prema Brendan Other [facility] Other 09-24-2021 10:00-0500 Body weight 65.32 kg Prema Brendan Other [facility] Other 09-24-2021 10:00-0500 Diastolic blood pressure 60 mm[Hg] Prema Brendan Other [facility] Other 09-24-2021 10:00-0500 Systolic blood pressure 110 mm[Hg] Prema Brendan Other [facility] Other 08-14-2021 12:30-0400 Body height 157.48 cm Aneesh Rider Other [facility] Other 08-14-2021 12:30-0400 Body mass index (BMI) [Ratio] 26.34 kg/m2 Aneesh Blackwellky Other [facility] Other 08-14-2021 12:30-0400 Body weight 65.32 kg Aneesh Blackwellky Other [facility] Other 08-14-2021 12:30-0400 Diastolic blood pressure 66 mm[Hg] Aneesh Rider Other [facility] Other 08-14-2021 12:30-0400 Systolic blood pressure 110 mm[Hg] Aneesh Rider Other [facility] Other Encounters Encounter Date Encounter Type Care Provider Facility Start: 04-28-2025 End: 04-29-2025 Refill Alejo Zavala MD Work Phone: [facility] Comment on above: Primary hypertension Start: 04-21-2025 End: 04-21-2025 Refill Dian Soriano MASONRY INSPECTOR Work Phone: [facility] Comment on above: Generalized anxiety disorder ([facility]/HCC) Start: 04-11-2025 End: 04-12-2025 Telephone encounter Maximus Stewart MASONRY INSPECTOR Work Phone: [facility] Start: 04-01-2025 End: 04-01-2025 Bamboo flowsheet Maximus Stewart MASONRY INSPECTOR Work Phone: [facility] Start: 04-01-2025 End: 04-01-2025 Bamboo flowsheet Maximus Stewart MASONRY INSPECTOR Work Phone: [facility] Start: 04-01-2025 End: 04-01-2025 Office outpatient visit 25 minutes Maximus Stewart MASONRY INSPECTOR Work Phone: [facility] Comment on above: Acute pain of left k nee (Primary Dx); Status post left knee replacement Start: 04-01-2025 End: 04-01-2025 ambulatory MAXIMUS STEWART Not Available Start: 03-27-2025 End: 03-27-2025 ambulatory Lai LEBRON Facility:[id number] Start: 03-20-2025 End: 03-20-2025 Refill Dian Soriano MASONRY INSPECTOR Work Phone: [facility] Comment on above: Adult hypothyroidism (CMS/HCC) (Primary Dx) Start: 03-12-2025 End: 03-12-2025 ambulatory [facility] Start: 02-28-2025 ambulatory DIAN BO Facility: [facility] Start: 02-28-2025 End: 02-28-2025 Bamboo flowsheet Dian Bo MASONRY INSPECTOR Work Phone: [facility] Start: 02-28-2025 End: 02-28-2025 Bamboo flowsheet Dian Bo MASONRY INSPECTOR Work Phone: [facility] Start: 02-28-2025 End: 02-28-2025 Office outpatient visit 25 minutes Dian Soriano MASONRY INSPECTOR Work Phone: [facility] Comment on above: Severe anxiety with panic (CMS/HCC) (Primary Dx); Primary hypertension (CMS/HCC); Gastroesophageal reflux disease, unspecified whether esophagitis present; Osteopenia, unspecified location; Adult hypothyroidism (CMS/HCC); Irritable bowel syndrome with both constipation and diarrhea; Colon cancer screening; Osteoarthritis of left knee, unspecified osteoarthritis type Start: 02-28-2025 End: 02-28-2025 ambulatory DIAN BO Not Available Start: 02-26-2025 End: 02-26-2025 Refill Dian Baronz MASONRY INSPECTOR Work Phone: [facility] Comment on above: Generalized anxiety disorder (CMS/HCC) Start: 01-04-2025 End: 01-04-2025 Orders Only Alejo Zavala MD Work Phone: [facility] Comment on above: TSH elevation Start: 12-26-2024 End: 12-26-2024 Refill Cyndi Piper MASONRY INSPECTOR Work Phone: [facility] Comment on above: Generalized anxiety disorder (CMS/HCC) Start: 11-29-2024 End: 11-29-2024 Office outpatient visit 15 minutes Cyndi Piper MASONRY INSPECTOR Work Phone: [facility] Comment on above: TSH elevation (Prima ry Dx); Generalized anxiety disorder (CMS/HCC); Primary hypertension (CMS/HCC) Start: 11-29-2024 End: 11-29-2024 ambulatory CYNDI PIPER Not Available Start: 10-25-2024 End: 10-25-2024 Refill Cyndi Piper MASONRY INSPECTOR Work Phone: [facility] Comment on above: Generalized anxiety disorder (CMS/HCC) Start: 10-17-2024 End: 10-17-2024 Orders Only Cyndi Piper MASONRY INSPECTOR Work Phone: [facility] Start: 09-30-2024 End: 10-01-2024 Refill Cyndi Piper MASONRY INSPECTOR Work Phone: [facility] Comment on above: Generalized anxiety disorder (CMS/HCC) Start: 09-26-2024 End: 09-26-2024 ambulatory BARRETT VINI Not Available Start: 09-02-2024 End: 09-03-2024 Refill Cyndi Piper MASONRY INSPECTOR Work Phone: [facility] Comment on above: Generalized anxiety disorder (CMS/HCC) Start: 08-20-2024 End: 08-20-2024 Orders Only Cyndi Piper MASONRY INSPECTOR Work Phone: [facility] Comment on above: TSH elevation (Prima ry Dx) Start: 08-06-2024 End: 08-06-2024 Bamboo flowsheet Cyndi Piper MASONRY INSPECTOR Work Phone: [facility] Start: 08-06-2024 End: 08-06-2024 Bamboo flowsheet Cyndi Ipper MASONRY INSPECTOR Work Phone: [facility] Start: 08-06-2024 End: 08-06-2024 Initial preventive medicine new patient 40-64yrs Cyndi Piper MASONRY INSPECTOR Work Phone: [facility] Comment on above: Encounter to [facility] (Primary Dx); Wellness examination; Primary hypertension (CMS/HCC); Generalized anxiety disorder (CMS/HCC); Fibromyalgia; Osteoarthritis involving multiple joints on both sides of body Start: 08-06-2024 End: 08-06-2024 Patient encounter status Cyndi Connerpatrick MASONRY INSPECTOR Work Phone: [facility] Start: 08-06-2024 End: 08-06-2024 ambulatory CYNDI PIPER Not Available Start: 03-19-2024 End: 03-19-2024 ambulatory [facility] Work Phone: Start: 03-19-2024 End: 03-19-2024 Patient encounter procedure [facility] Work Phone: Start: 03-12-2024 Non-patient / Non-visit [facility] Physician [facility] Work Phone: Start: 01-19-2024 Non-patient / Non-visit [facility] Physician [facility] Work Phone: Start: 12-26-2023 [employer] Maximus Stewart MASONRY INSPECTOR Work Phone: [facility] Start: 12-26-2023 [employer] Maximus Stewart MASONRY INSPECTOR Work Phone: [facility] Start: 12-26-2023 End: 12-26-2023 Office outpatient visit 15 minutes Maximus Stewart MASONRY INSPECTOR Work Phone: [facility] Comment on above: Knee strain, left, i nitial encounter (Primary Dx); Primary osteoarthritis of left knee; Status post left knee replacement Start: 12-14-2023 End: 12-14-2023 ambulatory Vadmi Cornejo Other [facility] Other Start: 12-14-2023 Telephone encounter Vadim Cornejo [facility] Start: 12-12-2023 End: 12-12-2023 ambulatory Vadim Cornejo Other [facility] Other Start: 12-12-2023 Telephone encounter Vadim Cornejo [facility] Start: 12-01-2023 End: 12-01-2023 ambulatory Vadim Cornejo Other [facility] Other Start: 12-01-2023 Telephone encounter Vadim Cornejo [facility] Start: 11-16-2023 End: 11-16-2023 ambulatory Vadim Cornejo Other [facility] Other Start: 11-16-2023 Telephone encounter Vadim Cornejo [facility] Start: 11-15-2023 End: 11-15-2023 ambulatory Vadim Cornejo Other [facility] Other Start: 11-15-2023 Office outpatient vi sit 15 minutes Vadim Cornejo [facility] Start: 11-08-2023 End: 11-08-2023 ambulatory Vadim Cornejo Other [facility] Other Start: 11-08-2023 Telephone encounter Vadim Cornejo [facility] Start: 10-24-2023 End: 10-24-2023 ambulatory Vadim Cornejo Other [facility] Other Start: 10-24-2023 Telephone encounter Vadim Cornejo [facility] Start: 10-17-2023 End: 10-17-2023 ambulatory Vadim Cornejo Other [facility] Other Start: 10-17-2023 Telephone encounter Vadim Cornejo [facility] Start: 06-30-2023 End: 06-30-2023 ambulatory Vadim Cornejo Other [facility] Other Start: 06-30-2023 Telephone encounter Vadim Cornejo [facility] Start: 06-28-2023 End: 06-28-2023 ambulatory Vadim Cornejo Other [facility] Other Start: 06-28-2023 Telephone encounter Vadim Cornejo [facility] Start: 05-09-2023 End: 05-09-2023 ambulatory Vadim Cornejo Other [facility] Other Start: 05-09-2023 Telephone encounter Vadim Cornejo [facility] Start: 03-23-2023 End: 03-23-2023 ambulatory Vadim Cornejo Other [facility] Other Start: 03-23-2023 Telephone encounter Vadim Cornejo [facility] Start: 03-03-2023 Office outpatient vi sit 15 minutes Vadim Cornejo [facility] Start: 03-03-2023 End: 03-03-2023 ambulatory Vadim Cornejo Facility:[facility] Start: 03-03-2023 End: 03-03-2023 ambulatory MD Vadim Cornejo Work Phone: [facility] Work Phone: Start: 03-03-2023 End: 03-03-2023 Departed Referred MD Vadim Cornejo Work Phone: [facility] [place] Work Phone: Start: 02-28-2023 End: 02-28-2023 ambulatory Vadim Cornejo Other [facility] Other Start: 02-28-2023 Telephone encounter Vadim Cornejo [facility] Start: 02-25-2023 End: 02-25-2023 ambulatory Vadim Cornejo Other [facility] Other Start: 02-25-2023 Telephone encounter Vadim Cornejo [facility] Start: 02-09-2023 End: 02-10-[address] CARLITOS VANEGAS Facility: Start: 02-03-2023 End: 02-03-2023 ambulatory Vadim Cornejo Other [facility] Other Start: 02-03-2023 Telephone encounter Vadim Cornejo [facility] Start: 12-28-2022 End: 12-28-2022 ambulatory Vadim Cornejo Other [facility] Other Start: 12-28-2022 Telephone encounter Vadim Cornejo [facility] Start: 12-15-2022 End: 12-16-[address] LOC DELACRUZ Facility:[facility]1 Start: 11-23-2022 End: 11-24-2022 ambulatory CEZAR PETIT Facility:[facility] Start: 11-02-2022 End: 11-03-[address] DOCTOR CASTORENA Facility:[facility] Start: 10-26-2022 End: 10-27-[address] LOC DELACRUZ Facility:[facility] Start: 10-07-2022 End: 10-07-[address] SANTY TREVINO Facility:[facility] Start: 10-05-2022 End: 10-05-[address] LOC DELACRUZ Facility:[facility]1 Start: 10-02-2022 Encounter for preprocedural cardiovascular examination [facility] Start: 10-02-2022 Encounter for preprocedural laboratory examination [facility] Start: 09-28-2022 End: 09-29-2022 ambulatory [facility] Kev [facility] Facility:[facility]1 Start: 09-28-2022 End: 09-29-2022 Encounter for preprocedural cardiovascular examination [facility] Kev [facility] Facility:[facility] Start: 09-15-2022 End: 09-16-[address] CARLITOS VANEGAS Facility:[facility]1 Start: 08-05-2022 End: 08-06-[address] LOC DELACRUZ Facility:[facility]1 Start: 05-27-2022 End: 05-27-2022 ambulatory Nazanin Valladares Other [facility] Other Start: 05-27-2022 Office outpatient vi sit 15 minutes Nazanin Valladares [facility] Start: 05-07-2022 End: 05-07-2022 ambulatory Aneesh Rider Other [facility] Other Start: 05-07-2022 Office outpatient vi sit 25 minutes Aneesh Rider [facility] Start: 05-07-2022 Telephone encounter Aneesh Rider [facility] Start: 04-20-2022 End: 04-20-2022 ambulatory Aneesh Tereso Other [facility] Other Start: 04-20-2022 Office outpatient vi sit 15 minutes Aneesh Tereso [facility] Start: 04-13-2022 (Procedure) Short Aneesh Rider [facility] Start: 04-13-2022 End: 04-13-2022 ambulatory Aneesh Tereso Other [facility] Other Start: 04-02-2022 End: 04-02-2022 ambulatory Aneesh Tereso Other [facility] Other Start: 04-02-2022 Office outpatient vi sit 25 minutes Aneesh Tereso [facility] [place] Start: 12-22-2021 End: 12-22-2021 ambulatory Aneesh Tereso Other [facility] Other Start: 12-22-2021 Office outpatient vi sit 15 minutes Aneesh Tereso [facility] Start: 11-19-2021 (Procedure) Gaby Rider [facility] Start: 11-19-2021 End: 11-19-2021 ambulatory Aneeshqi Rider Other [facility] Other Start: 10-29-2021 (Procedure) Gaby Rider [facility] Start: 10-29-2021 End: 10-29-2021 ambulatory Aneesh Tereso Other [facility] Other Start: 09-30-2021 End: 09-30-2021 ambulatory Prema Cardona Other [facility] Other Start: 09-30-2021 Telephone encounter Premara Cardona [facility] Start: 09-29-2021 End: 09-29-2021 ambulatory Prema Brendan [facility] [employer] Other Start: 09-29-2021 Telephone encounter Premara Dominguezz [facility] Start: 09-24-2021 End: 09-24-2021 ambulatory Prema Brendan [facility] [employer] Other Start: 09-24-2021 Office outpatient vi sit 25 minutes Prema Brendan [facility] Start: 09-10-2021 (Procedure) [facility] Start: 08-25-2021 (Procedure) [facility] Start: 08-18-2021 Telephone encounter Aneesh Rider [facility] Start: 08-14-2021 Office outpatient vi sit 25 minutes Aneeshqi Rider [facility] Procedures Date Procedure Procedure Detail Performing Clinician Start: 04-01-2025 Radiologic examinati on knee 1/2 views Maximus Stewart MASONRY INSPECTOR Work Phone: Start: 09-26-2024 Mammography Cyndi F geovanny MASONRY INSPECTOR Work Phone: Start: 12-26-2023 Radiologic examinati on knee 1/2 views Maximus Stewart MASONRY INSPECTOR Work Phone: Start: 07-21-2023 Mammography Maximus johnson MASONRY INSPECTOR Work Phone: Start: 06-29-2023 End: 02-28-2025 H/O: hysterectomy H/O: hysterectomy Maximus Stewart MASONRY INSPECTOR Work Phone: Screening for malign ant neoplasm of breast Vadim Clemente Other Plan of Treatment Date Care Activity Detail Author Start: 09-26-2025 Screening for malignant neoplasm of breast Mammogram [facility] Start: 07-15-2025 Influenza vaccination Influenza Vaccine (Season Ended) [facility] Start: 05-30-2025 End: 05-30-2025 Patient encounter procedure 05/30/2025 9:00 AM EDT Office Visit [facility] [address] [place] [address] Dian Soriano, NABOR [address] [place] [address] [facility] Start: 05-20-2025 End: 03-20-2026 Thyrotropin [Units/volume] in Serum or Plasma TSH Lab Routine Adult hypothyroidism (CMS/HCC) Expected: 05/20/2025 (Approximate), Expires: 03/20/2026 [facility] Work Phone: Comment on above: Expected: 05/20/2025 (Approximate), Expi res: 03/20/2026 Start: 05-20-2025 End: 03-20-2026 Thyroxine (T4) free [Mass/volume] in Serum or Plasma T4, free Lab Routine Adult hypothyroidism (CMS/HCC) Expected: 05/20/2025 (Approximate), Expires: 03/20/2026 [facility] Comment on above: Expected: 05/20/2025 (Approximate), Expi res: 03/20/2026 Start: 05-02-2025 End: 05-02-2025 Patient encounter procedure 05/02/2025 8:15 AM EDT Office Visit [facility] [address] [place] [phone] Maximus Stewart NP [address] [place] [address] [facility] Start: 04-01-2025 End: 04-01-2026 C reactive protein [Mass/volume] in Serum or Plasma C-reactive protein Lab Routine Acute pain of left knee Expected: 04/01/2025 (Approximate), Expires: 04/01/2026 [facility] Comment on above: Expected: 04/01/2025 (Approximate), Expi res: 04/01/2026 Start: 04-01-2025 End: 04-01-2026 CBC W Auto Differential panel - Blood CBC and differential Lab Routine Acute pain of left knee Expected: 04/01/2025 (Approximate), Expires: 04/01/2026 [facility] Comment on above: Expected: 04/01/2025 (Approximate), Expi res: 04/01/2026 Start: 04-01-2025 End: 04-01-2026 Erythrocyte sedimentation rate Sedimentation rate, automated Lab Routine Acute pain of left knee Expected: 04/01/2025 (Approximate), Expires: 04/01/2026 [facility] Comment on above: Expected: 04/01/2025 (Approximate), Expi res: 04/01/2026 Start: 04-01-2025 End: 04-01-2026 NM Bone Limited Views NM bone limited Imaging Routine Acute pain of left knee Expected: 04/01/2025, Expires: 04/01/2026 [facility] Work Phone: Comment on above: Expected: 04/01/2025, Expires: Start: 04-01-2025 End: 04-01-2025 Patient encounter procedure 04/01/2025 8:00 AM EDT Office Visit [facility] [address] [place] [phone] Maximus Stewart, NABOR [address] [place] [address] Arrived [facility] Comment on above: Arrived Start: 02-28-2025 End: 02-28-2026 Thyrotropin [Units/volume] in Serum or Plasma TSH Lab Routine Adult hypothyroidism ([facility]/HCC) Expected: 02/28/2025 (Approximate), Expires: 02/28/2026 [facility] Work Phone: Comment on above: Expected: 02/28/2025 (Approximate), Expi res: 02/28/2026 Start: 02-28-2025 End: 02-28-2026 Thyroxine (T4) free [Mass/volume] in Serum or Plasma T4, free Lab Routine Adult hypothyroidism (CMS/HCC) Expected: 02/28/2025 (Approximate), Expires: 02/28/2026 [facility] Comment on above: Expected: 02/28/2025 (Approximate), Expi res: 02/28/2026 Start: 02-28-2025 End: 02-28-2026 Triiodothyronine (T3) Free [Mass/volume] in Serum or Plasma T3, free Lab Routine Adult hypothyroidism (CMS/HCC) Expected: 02/28/2025 (Approximate), Expires: 02/28/2026 [facility] Comment on above: Expected: 02/28/2025 (Approximate), Expi res: 02/28/2026 Start: 02-28-2025 End: 02-28-2025 Patient encounter procedure [facility] Comment on above: Primary hypertension (CMS/HCC) (Primary Dx); Gastroesophageal reflux disease, unspecified whether esophagitis present; Osteopenia, unspecified location; Severe anxiety with panic (CMS/HCC); Adult hypothyroidism (CMS/HCC); Irritable bowel syndrome with both constipation and diarrhea; Colon cancer screening Start: 01-10-2025 End: 11-29-2025 TSH W/REFLEX TO FT4 TSH W/REFLEX TO FT4 Lab Routine TSH elevation Expected: 01/10/2025 (Approximate), Expires: 11/29/2025 [facility] Work Phone: Comment on above: Expected: 01/10/2025 (Approximate), Expi res: 11/29/2025 Start: 12-03-2024 End: 12-03-2024 Patient encounter procedure 12/03/2024 9:00 AM EST Office Visit [facility] [address] [place] [address] Cyndi Piper NP [address] [place] [address] [facility] Start: 11-19-2024 Screening for malignant neoplasm of colon Colorectal Cancer Screening [facility] Comment on above: Postponed from 1962 (Other Patient Reasons) Start: 10-04-2024 End: 08-20-2025 TSH W/REFLEX TO FT4 TSH W/REFLEX TO FT4 Lab Routine TSH elevation Expected: 10/04/2024 (Approximate), Expires: 08/20/2025 [facility] Work Phone: Comment on above: Expected: 10/04/2024 (Approximate), Expi res: 08/20/2025 Start: 08-06-2024 End: 08-06-2025 CBC W Auto Differential panel - Blood CBC and differential Lab Routine Wellness examination Primary hypertension (CMS/HCC) Expected: 08/06/2024 (Approximate), Expires: 08/06/2025 [facility] Comment on above: Expected: 08/06/2024 (Approximate), Expi res: 08/06/2025 Start: 08-06-2024 End: 08-06-2025 Comprehensive metabolic 2000 panel - Serum or Plasma Comprehensive metabolic panel Lab Routine Wellness examination Primary hypertension (CMS/HCC) Expected: 08/06/2024 (Approximate), Expires: 08/06/2025 [facility] Comment on above: Expected: 08/06/2024 (Approximate), Expi res: 08/06/2025 Start: 08-06-2024 End: 08-06-2025 Hemoglobin A1c/Hemoglobin.total in Blood Hemoglobin A1c Lab Routine Wellness examination Expected: 08/06/2024 (Approximate), Expires: 08/06/2025 [facility] Comment on above: Expected: 08/06/2024 (Approximate), Expi res: 08/06/2025 Start: 08-06-2024 End: 08-06-2025 Lipid 1996 panel - Serum or Plasma Lipid panel Lab Routine Wellness examination Expected: 08/06/2024 (Approximate), Expires: 08/06/2025 [facility] Comment on above: Expected: 08/06/2024 (Approximate), Expi res: 08/06/2025 Start: 08-06-2024 End: 08-06-2025 TSH W/REFLEX TO FT4 TSH W/REFLEX TO FT4 Lab Routine Wellness examination Primary hypertension (CMS/HCC) Expected: 08/06/2024 (Approximate), Expires: 08/06/2025 [facility] Work Phone: Comment on above: Expected: 08/06/2024 (Approximate), Expi res: 08/06/2025 Start: 08-06-2024 End: 08-06-2024 Patient encounter procedure 08/06/2024 10:00 AM EDT Office Visit [facility] [address] [place] [phone] Cyndi Piper, NABOR [address] [facility] [place] [address] Arrived [facility] Comment on above: Arrived Start: 07-21-2024 Screening for malignant neoplasm of breast Mammogram [facility] Start: 07-15-2024 Influenza vaccination Influenza Vaccine (#1) [facility] Start: 07-04-2024 End: 07-04-2024 Patient encounter procedure 07/04/2024 10:00 AM EDT Office Visit [facility] [address] [place] [phone] Maximus Stewart, NABOR [address] [place], [place] [phone] [facility] Start: 12-26-2023 End: 12-26-2023 Patient encounter procedure 12/26/2023 9:15 AM EST Office Visit [facility] [address] [place] [phone] Maximus Stewart, NABOR [address] [place], [place] [phone] Primary osteoarthritis of left knee; Status post left knee replacement [facility] Comment on above: Primary osteoarthritis of left knee; Status post left knee replacement Start: 03-03-2023 [facility] Start: 11-25-2022 Screening for malignant neoplasm of cervix [facility] Start: 1983 Screening for malignant neoplasm of cervix Pap Smear [facility] Start: 1962 Screening for malignant neoplasm of colon [facility] Atopobium vaginae DN A [Presence] in Vaginal fluid by LARRY with probe detection [facility] Bacterial vaginosis associated bacterium 2 DNA [Presence] in Vaginal fluid by LARRY with probe detection [facility] Megasphaera sp type 1 DNA [Presence] in Vaginal fluid by LARRY with probe detection [facility] Immunizations Immunization Date Immunization Notes Care Provider Fa cility 11-10-2023 influenza, injectable, quadrivalent, preservative free Dian Soriano MASONRY INSPECTOR Work Phone: [facility] 11-10-2023 influenza virus vaccine, unspecified formulation Cyndi Piper MASONRY INSPECTOR Work Phone: [facility] 09-27-2021 influenza, injectable, quadrivalent, preservative free Maximus Summer MASONRY INSPECTOR Work Phone: [facility] 08-27-2020 influenza, injectable, quadrivalent, contains preservative Maximus Stewart MASONRY INSPECTOR Work Phone: [facility] 11-21-2019 seasonal influenza, intradermal, preservative free Maximus Stewart MASONRY INSPECTOR Work Phone: [facility] 09-14-2018 seasonal influenza, intradermal, preservative free Maximus Stewart MASONRY INSPECTOR Work Phone: [facility] 08-05-2017 Kenalog -40 mg Aneesh Blackwellky Other [employer] Other 11-23-2012 influenza, injectable, quadrivalent, preservative free Maximus Stewart MASONRY INSPECTOR Work Phone: [facility] Payers Date Payer Category Payer [facility] [id number] 2023 Unknown [facility] [id number] 2023-Present [address] [place] [id number] [id number] 2023 Medicaid [id number] 2023 Self-pay [id number] 1962 Unknown [id number] 2.16.840.1.171269.3.579. 2.593 1962 Unknown [id number] 2.16.840.1.481733.3.579. 2.593 1962 Unknown [id number] 2.16.840.1.739604.3.579. 2.593 1962 Unknown [id number] 2.16.840.1.198100.3.579. 2.593 1962 Unknown [id number] 2.16.840.1.744185.3.579. 2.593 1962 Unknown [id number] 2.16.840.1.684974.3.579. 2.593 1962 Unknown [id number] 2.16.840.1.253215.3.579. 2.593 1962 Unknown [id number] 2.16.840.1.578595.3.579. 2.593 1962 Unknown [id number] 2.16.840.1.887402.3.579. 2.593 1962 Unknown [id number] 2.16.840.1.639168.3.579. 2.593 1962 Unknown [id number] 2.16.840.1.938347.3.579. 2.727 1962 Unknown [id number] 2.16.840.1.621021.3.579. 2.727 1962 Unknown [id number] 2.16.840.1.492221.3.579. 2.727 1962 Unknown [id number] 2.16.840.1.504352.3.579. 2.1259 1962 Unknown [id number] 2.16.840.1.354722.3.579. 2.9 1962 Unknown [id number] 2.16.840.1.282181.3.579. 2.9 1962 Unknown [id number] 2.16.840.1.188845.3.579. 2.1258 1962 Unknown [id number] 2.16.840.1.734827.3.579. 2.1259 1962 Unknown [id number] 2.16.840.1.591078.3.579. 2.1259 1959 [facility] [id number] 2.16.840.1.829422.19 Unknown [id number] 2.16.840.1.838034.3.579. 2.531 Social History Date Type Detail Facility Unknown if ever smoked [facility] Other Start: 06-29-2023 End: 07-30-2024 Sex Assigned At [facility] Start: 05-01-2020 End: 08-06-2024 Tobacco smoking status [facility] Ex-smoker (finding) [facility] Start: 1960 Sex Assigned At Female [facility] End: 11-14-1995 History of tobacco use Current smoker [facility] End: 11-14-1995 History of tobacco use Cigarette Smoker [facility] Start: 06-29-2023 End: 08-06-2024 Tobacco use and exposure Smokeless tobacco non-user [facility] Start: 06-29-2023 End: 04-01-2025 Alcohol intake Current drinker of alcohol (finding) [...] minimally invasive Orthopaedic bone screw, non-bioabsorbable, sterile ()[id number] FDA Start: 05-01-2020 Arthroplasty, knee, total, minimally invasive Uncoated knee femur prosthesis ()[id number] FDA Start: 05-01-2020 Arthroplasty, knee, total, minimally invasive Tibial insert ()[id number] FDA Start: 05-01-2020 Arthroplasty, knee, total, minimally invasive Uncoated knee tibia prosthesis, metallic ()[id number] FDA Start: 05-01-2020 Arthroplasty, knee, total, minimally invasive Polyethylene patella prosthesis ()[id number] FDA Start: 05-01-2020 Clinical Notes 08-14-2021 to 04-11-2025 Telephone Encounter - Rafaela Campa - 04/11/2025 2:56 PM EDTTelephone Encounter - Rafaela Campa - 04/11/2025 2:56 PM EDTGbreann Stewart NP - 04/01/2025 8:00 AM EDTPatient InstructionsPatient Instructions Note Date & Type Note Facility 04-11-2025 Telephone encounter Note Patient left vm that she has not heard from [facility] to have her testing done. Please advise. [facility] 04-11-2025 Miscellaneous Notes Patient left vm that she has not heard from [facility] to have her testing done. Please advise. documented in this encounter [facility] 04-01-2025 History of Present illness Narrative Images from the original note were not included. HISTORY OF PRESENT ILLNESS: EST PT Rachele Flores is an 64 y.o. @ female. 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 angioedema Other Reaction(s): felt strange Nitrofurantoin Rash and Shortness of breath Other Reaction(s): felt strange Venlafaxine Shortness of breath Other Reaction(s): worsening anxiety Other Reaction(s): felt strange, worsening anxiety Baclofen Other Reaction(s): Intolerance HOME MEDICATIONS: Current Outpatient Medications Medication Instructions alendronate [...] 40 mg, Oral, Daily levothyroxine (SYNTHROID, LEVOXYL) 75 mcg, Oral, Daily before breakfast metoclopramide (REGLAN) 5 mg, Oral, 4 times daily omeprazole (PRILOSEC) 40 mg, 2 times daily polyethylene glycol, PEG, 3350 (MiraLax) 17 g packet Every 24 hours traMADol (Ultram) 50 MG tablet PHYSICAL EXAM: Left Knee Exam Muscle Strength The patient has normal left knee strength. Tenderness Left knee tenderness location: diffuse aching. Range of Motion Extension: 0 Flexion: 120 Tests Varus: negative Valgus: negative Drawer: Anterior - negative Posterior - negative Other Erythema: absent Sensation: normal Pulse: present Swelling: mild Vitals: There is no height or weight on file to calculate BMI. Tobacco Use: Medium Risk (04/01/2025) Patient History Smoking Tobacco Use: Former Smokeless Tobacco Use: Never Passive Exposure: Past Alcohol Use: Not At Risk (07/30/2024) AUDIT-C Frequency of Alcohol Consumption: 2-4 times a month Average Number of Drinks: 1 or 2 Frequency of Binge Drinking: Never IMAGING: XR knee 1 or 2 views left Imaging Result: 04/01/2025: Standing AP and LAT of left knee showed surgical position and alignment of prosthetic components without evidence of loosening or wear to the femoral, tibial, or patellar components. The alignment appeared to be anatomic. There was no evidence of accelerated or asymmetric wear to the patellar button or tibial tray. There was no evidence of fracture and/or dislocation. Impression: Stable LT total knee replacement. Maximus Stewart APRN, NP-C Procedures Orders Placed This Encounter Procedures XR knee 1 or 2 views left Views: AP Views: Lateral Reason for exam:: PAIN NM bone limited Standing Status: Future Number of Occurrences: 1 Expected Date: 04/01/2025 Expiration Date: 04/01/2026 Scheduling Instructions: BONE SCAN 3 PHASE LIMITED @ [facility]; PLEASE CALL PT TO SCHEDULE Reason for exam:: PROSTHESIS LOOSENING C-reactive protein Standing Status: Future Number of Occurrences: 1 Expected Date: 04/01/2025 Expiration Date: 04/01/2026 Print requisition?: No CBC and differential Standing Status: Future Number of Occurrences: 1 Expected Date: 04/01/2025 Expiration Date: 04/01/2026 Print requisition?: No Sedimentation rate, automated Standing Status: Future Number of Occurrences: 1 Expected Date: 04/01/2025 Expiration Date: 04/01/2026 Print requisition?: No ASSESSMENT: ICD-10-CM 1. Acute pain of left knee M25.562 XR knee 1 or 2 views left NM bone limited C-reactive protein CBC and differential Sedimentation rate, automated NM bone limited C-reactive protein CBC and differential Sedimentation rate, automated 2. Status post left knee replacement Z96.652 PLAN: Patient states that she is still having increased knee pain after her PCP gave her MDP 3 weeks ago. She has stopped her 80 minutes of biking as she has had increased swelling and pain. I reviewed her xray which showed no obvious signs of loosening. I recommend patient have CRP, Sed Rate, CBC and bone scan done to evaluate for possible prosthetic loosening. She will follow up post bone scan and labs. Questions answered in laymen terms at the bedside. The diagnosis, home exercise plan and any ongoing restrictions/ recommendations reviewed. If unable to be reached in office, I recommend evaluation at nearest Emergency Room if any symptoms worsened or new symptoms develop for requiring urgent evaluation. Maximus Stewart APRN MASONRY INSPECTOR-C documented in this encounter [facility] 03-12-2025 Note General Surgery Offi ce/Clinic Note [...] Never., 03/07/2025 Tobacc (more content not included)... [facility] Comment on above: Result Comment: Elec [...] LASER ABLATION Right 04/2020 occipital cervical ablation- [facility] TOTAL KNEE ARTHROPLASTY Left 05/01/2020 Dr [...] Current meds: fosamax Condition is managed by ELECTRICAL/INSTRUMENT TECHNICIAN VALERIYA 03/19/24: -2.2 Irritable bowel syndrome with both [...] Current meds: fosamax Condition is managed by ELECTRICAL/INSTRUMENT TECHNICIAN DEXA 03/19/24: -2.2 Associated Problem(s): GERD (gastroesophageal reflux [...] meds: b sarah documented in this encounter [facility] 02-28-2025 Instructions Dian Soriano NP - 02/28/2025 9:00 AM EDT Lab slip Colonoscopy: dr Lebron's office should call, if no call in 2 weeks call me back documented in this encounter [facility] 11-29-2024 History of Present illness Narrative Associated [...] Subjective Patient ID: Rachele Flores is a 64 y.o. female who presents [...] in 6 weeks. documented in this encounter [facility] 08-07-2024 History of Present illness Narrative Associated [...] CBC and differential documented in this encounter [facility] 08-06-2024 Instructions Cyndi Piper NP - 08/06/2024 [...] sleep per night. documented in this encounter [facility] 12-26-2023 History of Present illness Narrative Images [...] new symptoms develop for requiring urgent evaluation. Maximus Stewart DEALMAKER-MECHANICAL EQUIPMENT TEST ENGINEER documented in this encounter [facility] 11-16-2023 Evaluation note Encounter Date Diagnosis Assessment Notes Nov, Hot flash, menopausal (ICD-10 - N95.1) [facility] Other 01-02-2024 Evaluation note* Encounter Date Diagnosis Assessment Notes Treatment Notes Treatment Clinical Notes Nov, Hot flash, menopausal (ICD-10 - N95.1) Trial of new med. Discussed options, new insurance pending. If too expensive could increast HRT dose. Will monitor results. [facility] Other 12-11-2023 Evaluation note* Encounter Date Diagnosis Assessment Notes Treatment Notes Treatment Clinical Notes Oct, Hot flash, menopausal (ICD-10 - N95.1) [facility] Other 04-20-2023 Evaluation note* Encounter Date Diagnosis Assessment Notes Treatment Notes Treatment Clinical Notes Feb, Vaginal discharge (ICD-10 - N89.8) culture pending - possible BV. would hold on further yeast treatment until culture result is back. Feb, Dysuria (ICD-10 - R30.0) UA normal. vaginal culture pending [facility] Other 03-30-2023 NotePROCEDURE: XR FOOT LT MIN [...] IMPRESSION: Stable tarsometatarsal fusion Electronically authenticated by: ACRLITOS VANEGAS Date: 2023-02-10 08:06[facility]02-01-2023 NotePROCEDURE: XR FOOT LT MIN 3 VIEWS [...] Electronically authenticated by: LOC DELACRUZ Date: 2022-12-15 16:49[facility]12-13-2022 NotePROCEDURE: XR FOOT LT MIN 3 VIEWS [...] Electronically authenticated by: LOC DELACRUZ Date: 2022-10-26 15:47[facility]11-23-2022 NotePROCEDURE: XR FOOT LT MIN 3 VIEWS [...] Electronically authenticated by: LOC DELACRUZ Date: 2022-10-06 10:54[facility]11-23-2022 NotePROCEDURE: XR FOOT LT 2V HISTORY: Pain [...] authenticated by: LOC DELACRUZ Date: 2022-10-06 10:52[id number] NotePROCEDURE: Axial 3 mm. slice thickness images [...] and signed by Chad Montgomery on 09/21/2022 1253[facility]11-02-2022 NotePROCEDURE: XR FOOT LT MIN 3 [...] authenticated by: CARLITOS VANEGAS Date: 2022-09-15 18:38[id number] Evaluation note* Encounter Date Diagnosis Assessment Notes [...] is encouraged to follow up as needed. [facility] 06-24-2022 Evaluation note* Encounter Date Diagnosis [...] is encouraged to follow up after procedure [facility] Other 06-07-2022 Evaluation note* Encounter Date Diagnosis [...] - G89.29) Continue with current treatment plan. [facility] Other 05-20-2022 Evaluation note* Encounter Date Diagnosis [...] pain relief and increased function following procedure [facility] Other 02-08-2022 Evaluation note* Encounter Date Diagnosis [...] call the office if her pain returns [facility] 11-11-2021 Evaluation note* Encounter Date Diagnosis [...] (ICD-10 - G89.29) Continue medications as prescribed [facility] Other 10-01-2021 Evaluation note* Encounter Date Diagnosis [...] (ICD-10 - G89.29) Follow up after procedure. [facility] Other Evaluation noteNo InformationNort [employer] Other Evaluation noteNo assessment information available [facility] Work Phone: Evalupuebl note* Diagnosis Knee strain, left, initial encounter- [...] esophagitis present Osteopenia, unspecified location Adult hypothyroidism ([facility]) Unspecified hypothyroidism Irritable bowel syndrome with both constipation and diarrhea Colon cancer screening Special screening for malignant neoplasms, colon Osteoarthritis of left knee, unspecified osteoarthritis type [facility] Diagnosis Encounter to establish care- Primary Wellness examination Primary hypertension ([facility]/HCC) Unspecified essential hypertension Generalized anxiety disorder (CMS/HCC) Generalized anxiety disorder Fibromyalgia Unspecified myalgia and myositis Osteoarthritis involving multiple joints on both sides of body TSH elevation- Primary Generalized anxiety disorder (CMS/HCC) Generalized anxiety disorder Primary hypertension (CMS/HCC) Unspecified essential hypertension Severe anxiety with panic (CMS/HCC)- Primary Primary hypertension ([facility]/HCC) Unspecified essential hypertension Gastroesophageal reflux disease, unspecified whether esophagitis present Osteopenia, unspecified location Adult hypothyroidism ([facility]) Unspecified hypothyroidism Irritable bowel syndrome with both constipation and diarrhea Colon cancer screening Special screening for malignant neoplasms, colon Osteoarthritis of left knee, unspecified osteoarthritis type Adult hypothyroidism ([facility]/HCC)- Primary Unspecified hypothyroidism [facility] [...] esophagitis present Osteopenia, unspecified location Adult hypothyroidism (CMS/HCC) Unspecified hypothyroidism Irritable bowel syndrome with both constipation and diarrhea Colon cancer screening Special screening for malignant neoplasms, colon Osteoarthritis of left knee, unspecified osteoarthritis type Acute pain of left knee- Primary Status post left knee replacement documented in this encounter [facility]* Diagnosis Encounter to establish care- [...] esophagitis present Osteopenia, unspecified location Adult hypothyroidism (CMS/HCC) Unspecified hypothyroidism Irritable bowel syndrome with both constipation and diarrhea Colon cancer screening Special screening for malignant neoplasms, colon Osteoarthritis of left knee, unspecified osteoarthritis type Generalized anxiety disorder (CMS/HCC) Generalized anxiety disorder documented in this encounter [facility] Healthcare[facility] note* Diagnosis Encounter to establish care- Primary Wellness examination Primary hypertension Unspecified essential hypertension Generalized anxiety disorder Generalized anxiety disorder Fibromyalgia Unspecified myalgia and myositis Osteoarthritis involving multiple joints on both sides of body TSH elevation- Primary Generalized anxiety disorder Generalized anxiety disorder Primary hypertension Unspecified essential hypertension Severe anxiety with panic- Primary Primary hypertension Unspecified essential hypertension Gastroesophageal reflux disease, unspecified whether esophagitis present Osteopenia, unspecified location Adult hypothyroidism Unspecified hypothyroidism Irritable bowel syndrome with both constipation and diarrhea Colon cancer screening Special screening for malignant neoplasms, colon Osteoarthritis of left knee, unspecified osteoarthritis type Primary hypertension Unspecified essential hypertension [facility] - [facility]* Type Description Date Medical History Panic attacks Medical History high blood pressure Medical History Rheumatoid Arthritis Surgical History bariatric surgery Surgical History hysterectomy Surgical History gall bladder removal Surgical History total left knee replacement 04/15 Surgical History spur removed and bone fusion on the left 09/2020 Hospitalization History see above [facility] Other History general Narrative - Reported* Type Description Date Medical History Panic attacks Medical History high blood pressure Medical History Rheumatoid Arthritis Surgical History bariatric surgery Surgical History hysterectomy Surgical History gall bladder removal Surgical History total left knee replacement 04/15 Surgical History spur removed and bone fusion on the left 09/2020 Surgical History eye lid bilateral 10/2022 Hospitalization History see above [facility] Other History general Narrative - Reported* Type Description Date Medical History Panic attacks Medical History high blood pressure Medical History Rheumatoid Arthritis Surgical History bariatric surgery Surgical History hysterectomy Surgical History gall bladder removal Surgical History total left knee replacement / 020 Surgical History spur removed and bone fusion on the left 09/2020 Surgical History eye lid bilateral 10/2022 Surgical History foot surgery left foot 2021 Hospitalization History see above [facility] Other History general Narrative - Reported* Type [...] left foot 2021 Hospitalization History see above [facility] Other Summary Purpose Family History Relationship Condition [...] section and content) DATE CREATED AUTHOR 01/11/2020 [facility] DATE CREATED AUTHOR AUTHOR'S ORGANIZ ATION 09/22/2022 [facility] Me dical Specialist DATE CREATED AUTHOR AUTHOR'S ORGANIZ ATION 02/21/2023 [facility] DATE CREATED AUTHOR AUTHOR'S ORGANIZ ATION 03/08/2023 [facility] DATE CREATED AUTHOR AUTHOR'S ORGANIZ ATION 04/10/2025 [facility] DATE CREATED AUTHOR AUTHOR'S ORGANIZ ATION 04/11/2025 [facility] dical Specialists EPIC REASON FOR VISIT (unrecogniz ed section and [...] Comments Med Refill 02/26/2025 Reason Comments Hypothyroidism Reason Comments Pain Reason Onset Date Comments Med Refill 04/21/2025 Reason Onset Date Comments Med Refill 04/28/2025 Care Teams (unrecognized sec tion and content) [...] 2024 Barrett Ying Attending Provider Active Start: Ap 2023 Team Status: Inactive Member Role Status Dates Vadim Cornejo MD Primary Care Provide r, Attending Provider Active Start: March 19, 2024 End: March 19, 2024 Team Status: Inactive Member Role Status Dates Vadim Cornejo MD Primary Care Provider, Attending Chanel vargas Active Applications Support Engineer Relationship Specialty Start Date End Date Vadim Cornejo MD [address] [place] [address] PCP - General Family Medicine 06/29/23 Applications Support Engineer Relationship Specialty Start Date End Date Vadim Cornejo MD [address] [place] [address] PCP - General Family Medicine 06/29/23 Applications Support Engineer Relationship Specialty Start Date End Date Alejo Zavala MD [address] [facility] [place] [address] PCP - General Family Medicine 07/23/24 Cyndi Piper NP [address] [place] [address] Nurse Practitioner Family Medicine 07/23/24 Applications Support Engineer Relationship Specialty Start Date End Date Alejo Zavala MD [address] [place] [address] PCP - General Family Medicine 07/23/24 Cyndi Piper NP [address] [place] [address] Nurse Practitioner Family Medicine 07/23/24 Applications Support Engineer Relationship Specialty Start Date End Date Alejo Zavala MD [address] [place] [phone] PCP - General Family Medicine 07/23/24 Cyndi Piper NP [address] [place] [address] Nurse Practitioner Family Medicine 07/23/24 Applications Support Engineer Relationship Specialty Start Date End Date Alejo Zavala MD [address] [place] [phone] PCP - General Family Medicine 07/23/24 Cyndi Piper NP [address] [place] [address] Nurse Practitioner Family Medicine 07/23/24 Applications Support Engineer Relationship Specialty Start Date End Date Alejo Zavala MD [address] [place] [phone] PCP - General Family Medicine 07/23/24 Cyndi Piper NP [address] [place] [address] Nurse Practitioner Family Medicine 07/23/24 Applications Support Engineer Relationship Specialty Start Date End Date Alejo Zavala MD [address] [place] [address] PCP - General Family Medicine 07/23/24 Cyndi Piper NP [address] [place] [address] Nurse Practitioner Family Medicine 07/23/24 Applications Support Engineer Relationship Specialty Start Date End Date Alejo Zavala MD [address] [place] [address] PCP - General Family Medicine 07/23/24 Cyndi Piper NP [address] [place] [address] Nurse Practitioner Family Medicine 07/23/24 Applications Support Engineer Relationship Specialty Start Date End Date Alejo Zavala MD [address] [place] [address] PCP - General Family Medicine 07/23/24 Cyndi Piper NP [address] [place] [address] Nurse Practitioner Family Medicine 07/23/24 Barrett Ying DO [address] [place] [address] [place] [address] Referring Physician Obstetrics and Gynecology 11/20/24 Applications Support Engineer Relationship Specialty Start Date End Date Alejo Zavala MD [address] [place] [address] PCP - General Family Medicine 07/23/24 Cyndi Piper, MASONRY INSPECTOR [address] [place] [address] Nurse Practitioner Family Medicine 07/23/24 Barrett Ying, [address] [place] [address] [place] [address] Referring Physician Obstetrics and Gynecology 11/20/24 Applications Support Engineer Relationship Specialty Start Date End Date Alejo Zavala MD [address] [place] [phone] PCP - General Family Medicine 07/23/24 Cyndi Piper, MASONRY INSPECTOR [address] [place] [address] Nurse Practitioner Family Medicine 07/23/24 Barrett Ying, [address] [place], [place] [address] [place] [address] Referring Physician Obstetrics and Gynecology 11/20/24 Applications Support Engineer Relationship Specialty Start Date End Date Alejo Zavala MD [address] [place] [address] PCP - General Family Medicine 07/23/24 Cyndi Piper, NABOR [address] [place] [address] Nurse Practitioner Family Medicine 07/23/24 Barrett Ying [place] [facility] [place] [address] Referring Physician Obstetrics and Gynecology 11/20/24 Applications Support Engineer Relationship Specialty Start Date End Date Alejo Zavala MD [address] [place] [address] PCP - General Family Medicine 07/23/24 Cyndi Piper NP [address] [place] [address] Nurse Practitioner Family Medicine 07/23/24 Barrett Y[place] [facility] [address] Referring Physician Obstetrics and Gynecology 11/20/24 Applications Support Engineer Relationship Specialty Start Date End Date Alejo Zavala MD [address] [place] [address] PCP - General Family Medicine 07/23/24 Cyndi Piper NP [address] [place] [phone] Nurse Practitioner Family Medicine 07/23/24 Barrett Ying [place] [facility] [place] [address] Referring Physician Obstetrics and Gynecology 11/20/24 Applications Support Engineer Relationship Specialty Start Date End Date Alejo Zavala MD [address] [place] [address] PCP - General Family Medicine 07/23/24 Cyndi Piper, NABOR [address] [place] [address] Nurse Practitioner Family Medicine 07/23/24 Barrett Ying, [facility] [address] Referring Physician Obstetrics and Gynecology 11/20/24 Applications Support Engineer Relationship Specialty Start Date End Date Alejo Zavala MD [address] [place] [address] PCP - General Family Medicine 07/23/24 Cyndi Piper NP [address] [place] [phone] Nurse Practitioner Family Medicine 07/23/24 Barrett Ying, [facility] [address] Referring Physician Obstetrics and Gynecology 11/20/24 Applications Support Engineer Relationship Specialty Start Date End Date Alejo Zavala MD [address] [place] [address] PCP - General Family Medicine 07/23/24 Cyndi Piper NP [address] [place] [phone] Nurse Practitioner Family Medicine 07/23/24 Barrett Ying DO [facility] [place], [place] [phone] Referring Physician Obstetrics and Gynecology 11/20/24 Goals [...] BE BASED ON THE PRIMARY CLINICAL RECORDS. [employer] [facility]. provides no warranty or guarantee of the accuracy or completeness of information in this document.
== END 2025-05-10 07:45 | disposition home or self-care (01) ==
LOC: NM 07:45
PROVIDERS: PCP Family Medicine; Visit Provider Nurse Practitioner Family
DX: M25.562 Pain in left knee (principal)
CPT/HCPCS: 78315; A9503

== ENCOUNTER 2025-07-24 08:34 | Outpatient (OUT) | payer OTHER, SELFPAY ==
--- OUTSIDE RECORDS SUMMARY | 2025-07-24 08:55 | XMS_ITS | CCD ---
Author Organization [facility] Care Team Providers Care Manager Investment Name Role Phone Aneesh Rider Unavailable Prema Cardona Unavailable Nazanin Valladares Unavailable Vadim Cornejo Unavailable [facility], [facility] RESENDIZ Consulting Unavailable CLEMENTE, DR VADIM Gonzalez Primary Care Unavailable [facility] [place] RESENDIZ Attending Unavailable [facility] DR RESENDIZ Admitting Unavailable [...] Unavailable MD Vadim Cornejo Primary Care Provider [phone] MD Vadim Cornejo Attending Provider [phone] Vadim Cornejo Admitting Unavailable Vadim Cornejo Attending Unavailable Vadim Cornejo Primary Care Unavailable Vadim Cornejo MD Primary Care Provider [phone] Alejo Zavala MD Primary Care Provider Feliz DAIRY HUSBANDMAN, Cyndi Unavailable [phone] Barrett Ying DO Unavailable Feliz DAIRY HUSBANDMAN, Cyndi Unavailable [phone] DIAN SORIANO Referring Unavailable Lai LEBRON Attending Unavailable DIAN SORIANO Referring Unavailable Lai LEBRON Attending Unavailable Lai LEBRON Attending Unavailable DIAN SORIANO Attending Unavailable MAXIMUS STEWART Attending Unavailable MAXIMUS STEWART Referring Unavailable DIAN SORIANO Attending Unavailable MAXIMUS STEWART Attending Unavailable JR. QUESADA GEORGE C Attending Unavaila CYNDI Patel Attending UnavailBARRETT Wheeler Referring Unavailable CYNDI PIPER Attending Unavaildestinee e Allergies Allergy Classification Reported Allergen(s) Allergy Type Date of Onset Reaction(s) Facility (20 sources) Ciprofloxacin Drug Allergy 01-11-20 20 Shortness of breath, Angioedema [facility] (20 sources) NITROFURANTOIN, MACROCRYSTALS / Nitrofurantoin, Monohydrate Drug Allergy Unknown [facility] Other (20 sources) venlafaxine; Translations: [Effexor] Drug Allergy Unknown [facility] Repository (2 sources) Ciprofloxacin; Translations: [Cipro] Drug Allergy 10-08-20 15 [facility] Repository (1 source) Nitrofurantoin Drug Allergy 10-08-20 15 [facility] Repository (20 sources) Nitrofurantoin; Translations: [nitrofurantoin] Drug Allergy 01-11-20 20 Rash, Shortness of breath [facility] (20 sources) venlafaxine; Translations: [venlafaxine] Drug Allergy 01-11-[address] [facility] (1 source) Ciprofloxacin Drug Allergy 04-24-20 [facility] Repository (2 sources) Allergies Reconciled Propensity to adverse reactions Unknown [facility] Other (20 sources) Baclofen; Translations: [baclofen] Drug Allergy 01-11-20 [facility] Work Phone: (3 sources) Penicillins Drug Allergy 01-11-20 Shortness of breath [facility] Medications Current Medications Medication Drug Class(es) Dates Sig (Normalized) Sig (Original) acetaminophen 300 mg / codeine phosphate 30 mg oral tablet (2 sources) Opioid Agonist Start: 04-24-2020 take 1 tablet by mouth every eight hours Acetaminophen-Cod eine (Tylenol-Codeine #3) 300-30 mg Tablet Active 1 TAB PO Q8H April 24, 2020 12:00am Acetaminophen / HYDROcodone (20 sources) Opioid Agonist Start: 11-03-2020 take 1 tablet by mouth twice daily as needed [place] 5-325 MG 1 tablet as needed Orally [...] min. 4 tablet 11 02/26/2025 02/26/2026 Active atenolol 50 mg oral tablet (20 [...] mg oral tablet (20 sources) Start: 02-18-20 End: 08-28-20 take 1 tablet by mouth once daily busPIRone (Buspar) 15 MG tablet Indications: Severe anxiety with panic Take 1 tablet (15 mg) by mouth Daily 90 tablet 1 05/30/2025 08/28/2025 Active Start: 06-20-2024 End: 08-06-2024 take 1 [...] skin Transdermal Two times a Week Active Alex [place] ng Fezolinetant (Veozah) 45 MG tablet (4 [...] oral tablet (20 sources) Loop Diuretic Start: 05-16-2025 take 1 tablet by mouth once daily furosemide (Lasix) 40 MG tablet Indications: Primary hypertension Take 1 tablet (40 mg) by mouth Daily 30 tablet 3 05/16/2025 Active Start: 01-04-2025 take 1 tablet by zeynep once daily furosemide (Lasix) 40 MG tablet Indications: Primary hypertension Take 1 tablet (40 mg) by mouth Daily 30 tablet 3 01/04/2025 Active Start: 04-24-2020 take 40 mg by mouth once daily Furosemide Active 40 MG PO Daily April 24, 2020 12:00am levothyroxine sodium 0.088 mg oral tablet (20 sources) l-Thyroxine Start: 05-30-2025 End: 08-28-2025 take 1 tablet by mouth once daily levothyroxine (Synthroid, Levoxyl) 88 MCG tablet Indications: Adult hypothyroidism Take 1 tablet (88 mcg) by mouth Daily 90 tablet 05/30/2025 08/28/2025 Active Start: 03-20-2025 End: 06-18-2025 take 1 tablet by mouth before mealtime levothyroxine (Synthroid, Levoxyl) 75 MCG tablet Indications: Adult hypothyroidism Take 1 tablet (75 mcg) by mouth in the morning. Take before meals. 90 tablet 03/20/2025 05/30/2025 Discontinued (Therapy completed) Start: 01-04-2025 End: 03-20-2025 take 1 tablet [...] 24, 2020 12:00am take 1 capsule by [facility] every twenty-four hours Omeprazole 40 MG 1 capsule Orally Once a day Active polyethylene glycol 3350 22039 mg powder for oral solution (20 sources) [...] Drug Class(es) Dates Sig (Normalized) Sig (Original) ALPRAZolam 0.25 mg oral tablet (20 sources) Benzodiazepine Start: 01-25-2025 End: 07-23-2025 ALPRAZolam (Xanax) 0.25 MG tablet Indications: Generalized anxiety disorder Take 1 tablet (0.25 mg) by mouth as needed at bedtime for anxiety 30 tablet 2 05/30/2025 06/20/2025 Discontinued (Reorder) Start: 12-30-2024 ALPRAZolam (Xa nax) 0.25 MG [...] BY MOUTH THREE TIMES DAILY NEEDED for 10 March, Active Start: 02-10-2023 take 1 tablet by zeynep th three times daily as needed ALPRAZolam 0.25 mg TAKE 1 TABLET BY MOUTH THREE TIMES DAILY NEEDED for Jan, Active Start: 12-13-2022 take 1 tablet by zeynep th three times daily as needed ALPRAZolam 0.25 mg TAKE 1 TABLET BY MOUTH THREE TIMES DAILY NEEDED for Nov, Active diclofenac sodium 0.01 mg/mg topical gel (20 [...] 2020 12:00am March 19, 2024 11:12am sennosides, shelter 8.6 mg oral tablet (2 sources) Start: [...] mass index (BMI) 27.0-27.9, adult] Episodic Other skin disorders (9 sources) Generalized [...] tendon, initial encounter] 12-26-2023 Episodic Thyroid disorders (20 sources) Hypothyroidism; Translations: [Hypothyroidism, unspecified] Onset: 06-29-2023 [...] 01-30-2024 Episodic Other aftercare (1 source) Other jail (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; Translations: [OTH PRISON CURRENT DRUG THERAPY] Onset: 10-20-2022 Episodic Other bone disease and musculoskeletal deformities (20 sources) Osteopenia; Translations: [Other specified disorders of [...] leg] Onset: 06-29-2023 Resolved: 02-28-2025 06-29-2023 Episodic Other screening for suspected conditions (not mental disorders or infectious disease) (20 sources) Encounter for screening mammogram for malignant neoplasm of breast; Translations: [Electrocardiogram abnormal] Onset: 06-29-2023 Resolved: 02-28-2025 06-29-2023 Episodic Residual [...] Test Name Value Interpretation Reference Range Facility C-REACTIVE PROTEINon 025 CRP [Mass/Vol] mg/L Normal <8.0 [facility] Comment on above: Performed By: #### 6 399, 809 #### [facility] [place] [address] Contracts Representative: Bennett Anna MD C-reactive proteinon 025 CRP [Mass/Vol] mg/L NINF - 8.0 mg/L [facility] CBC (INCLUDES DIFF/PLT)on Basophils (Bld) [#/Vol] 0.077 10*3/uL Normal 0-200 [facility] Comment on above: Performed By: #### 6 399, 809 #### [facility] [place] [address] Contracts Representative: Bennett Anna MD Basophils/100 WBC (Bld) 0.9 % Normal [facility] Comment on above: Performed By: #### 6 399, 809 #### [facility] [place] [address] Contracts Representative: Bennett Anna MD Eosinophils (Bld) [#/Vol] 0.272 10*3/uL Normal 15-500 [facility] Comment on above: Performed By: #### 6 399, 809 #### [facility] [place] [address] Contracts Representative: Bennett Anna MD Eosinophils/100 WBC (Bld) 3.2 % Normal [facility] Comment on above: Performed By: #### 6 399, 809 #### [facility] [place] [address] Contracts Representative: Bennett Anna MD Erythrocyte distribution width (RBC) [Ratio] 14.7 % Normal 11.0-15.0 [facility] Comment on above: Performed By: #### 6 399, 809 #### [facility] [place] [address] Contracts Representative: Bennett Anna MD Hematocrit (Bld) [Volume fraction] 36.8 % Normal 35.0-45.0 [facility] Comment on above: Performed By: #### 6 399, 809 #### [facility] [place] [address] Contracts Representative: Bennett Anna MD Hemoglobin (Bld) [Mass/Vol] 11.6 g/dL Low 11.7-15.5 [facility] Comment on above: Performed By: #### 6 399, 809 #### [facility] [place] [address] Contracts Representative: Bennett Anna MD Lymphocytes (Bld) [#/Vol] 1.768 10*3/uL Normal 850-3900 [facility] Comment on above: Performed By: #### 6 399, 809 #### [facility] [place] [address] Contracts Representative: Bennett Anna MD Lymphocytes/100 WBC (Bld) 20.8 % Normal [facility] Comment on above: Performed By: #### 6 399, 809 #### [facility] [place] [address] Contracts Representative: Bennett Anna MD MCH (RBC) [Entitic mass] 29.0 pg Normal 27.0-33.0 [facility] Comment on above: Performed By: #### 6 399, 809 #### [facility] [place] [address] Contracts Representative: Bennett Anna MD MCHC (RBC) [Mass/Vol] 31.5 g/dL Low 32.0-36.0 [facility] Comment on above: Result Comment: For adults, a slight decrease in the calculated MCHC value (in the range of 30 to 32 g/dL) is most likely not clinically significant; however, it should be interpreted with caution in correlation with other red cell parameters and the patient's clinical condition. Performed By: #### 6 399, 809 #### [facility] [place] [address] Contracts Representative: Bennett Anna MD MCV (RBC) [Entitic vol] 92.0 fL Normal 80.0-100.0 [facility] Comment on above: Performed By: #### 6 399, 809 #### [facility] [place] [address] Contracts Representative: Bennett Anna MD Monocytes (Bld) [#/Vol] 0.561 10*3/uL Normal 200-950 [facility] Comment on above: Performed By: #### 6 399, 809 #### [facility] [place] [address] Contracts Representative: Bennett Anna MD Monocytes/100 WBC (Bld) 6.6 % Normal [facility] Comment on above: Performed By: #### 6 399, 809 #### [facility] [place] [address] Contracts Representative: Bennett Anna MD Neutrophils (Bld) [#/Vol] 5.823 10*3/uL Normal 9049-3605 [facility] Comment on above: Performed By: #### 6 399, 809 #### [facility] [place] [address] Contracts Representative: Bennett Anna MD Neutrophils/100 WBC (Bld) 68.5 % Normal [facility] Comment on above: Performed By: #### 6 399, 809 #### [facility] [place] [address] Contracts Representative: Bennett Anna MD Platelet mean volume (Bld) [Entitic vol] 10.9 fL Normal 7.5-12.5 [facility] Comment on above: Performed By: #### 6 399, 809 #### [facility] [place] [address] Contracts Representative: Bennett Anna MD Platelets (Bld) [#/Vol] 316 10*3/uL Normal 140-400 [facility] Comment on above: Performed By: #### 6 399, 809 #### [facility] [place] [id number] Contracts Representative: Bennett Anna MD RBC (Bld) [#/Vol] 4.00 10*6/uL Normal 3.80-5.10 [facility] Comment on above: Performed By: #### 6 399, 809 #### [facility] [address], [address] [place] [address] Contracts Representative: Bennett Anna MD WBC (Bld) [#/Vol] 8.5 10*3/uL Normal 3.8-10.8 [facility] Comment on above: Performed By: #### 6 399, 809 #### [facility] [address] [place], [place] [address]e , [address] [place] [address] Contracts Representative: Bennett Anna MD CBC W Auto Differential pane l (Bld)on 06-04-2025 Basophils (Bld) [#/Vol] 77 10*3/uL [facility] Basophils/100 WBC (Bld) 0.9 % [facility] Eosinophils (Bld) [#/Vol] 272 10*3/uL [facility] Eosinophils/100 WBC (Bld) 3.2 % [facility] Erythrocyte distribution width (RBC) [Ratio] 14.7 % 11.0 - 15.0 % [facility] Hematocrit (Bld) [Volume fraction] 36.8 % 35.0 - 45.0 % [facility] Hem[facility] (Bld) [Mass/Vol] 11.6 g/dL Low 11.7 - 15.5 g/dL [facility] Interpretation and review of laboratory results Abnormal [facility] Lymphocytes (Bld) [#/Vol] 1768 10*3/uL [facility] Lymphocytes/100 WBC (Bld) 20.8 % [facility] MCH (RBC) [Entitic mass] 29 pg 27.0 - 33.0 pg [facility] MCHC (RBC) [Mass/Vol] 31.5 g/dL Low 32.0 - 36.0 g/dL [facility] Comment on above: For adults, a slight decrease in the calculated MCHC value (in the range of 30 to 32 g/dL) is most likely not clinically significant; however, it should be interpreted with caution in correlation with other red cell parameters and the patient's clinical condition. MCV (RBC) [Entitic vol] 92 fL 80.0 - 100.0 fL [facility] Monocytes (Bld) [#/Vol] 561 10*3/uL [facility] Monocytes/100 WBC (Bld) 6.6 % [facility] Neutrophils (Bld) [#/Vol] 5823 10*3/uL [facility] Neutrophils/100 WBC (Bld) 68.5 % [facility] Platelet mean volume (Bld) [Entitic vol] 10.9 fL 7.5 - 12.5 fL [facility] Platelets (Bld) [#/Vol] 316 10*3/uL [facility] RBC (Bld) [#/Vol] 4 10*6/uL [facility] WBC (Bld) [#/Vol] 8.5 10*3/uL [facility] No Panel Informationon 06-04 Performing Organization Information Site ID: QPT Name: [facility] Address: [address] [place] [address] Director: Bennett Anna MD [facility] [employer] SED RATE BY MODIFIED WESTERG RENon 06-04-2025 SED RATE BY MODIFIED WESTERGREN 19 mm/h Normal < OR = 30 [facility] Comment on above: Performed By: #### 6 399, 809 #### [facility] [place] [address] Contracts Representative: Bennett Anna MD Sedimentation rate, automate don 06-04-2025 ESR (Bld) [Velocity] 19 mm/h < OR = 30 [facility] [employer] XR Knee - left 1 or 2 [...] LT total knee replacement. Maximus Stewart APRN, DAIRY HUSBANDMAN-C [facility] [employer] Radiology Study observation (narrative) [facility] [employer] Reminderson 03-29-2025 Reminders Reminders From: Radha Son LPN To: N - Clinical; Sent: 03/29/2025 11:54:43 EDT Show up: 02/25/2035 07:00:00 EDT Subject: colonoscopy recall Due Date/Time: 03/27/2035 07:00:00 EDT Reminder/Recall Patient due for screening colonoscopy 03/27/2035. Normal [facility] Ambulatory Visit Summaryon 0 03-12-2025 Ambulatory Visit [...] for choosing us for your care. Normal [facility] BI MAMMOGRAM SCREENING TOMOS YNTHESIS BILATERALon 09-26-2024 [...] DNA Probe+sig amp Ql (Cvx) Negative Negative [facility] Comment on above: This nucleic acid am plification test detects fourteen high- risk HPV types (16,18,31,33,35,39,45,51,52,56,58,59,66,68)without differentiation.Performed at: = - [facility] [address] [id number] Director: Theodora Lowe MD, Phone: [phone] at: - [facility] [address] [id number] Director: Theodora Lowe MD, Phone: [phone] Laboratory - Chemistry and C hemistry - challengeon 03-12-2024 ALT [Catalytic activity/Vol] 31 U/L 14-59 [facility] AST [Catalytic activity/Vol] 23 U/L 15-37 [facility] No Panel Informationon 03-12 HPV High Risk Other Comment Note . [facility] Comment on above: TESTS RESULT FLAG UN ITS REF RANGE LAB MERE GNOSIS: 02 NEGATIVE FOR INTRAEPITHELIAL LESION OR MALIGNANCY.Specimen adequacy: 02 Satisfactory for evaluation.Performed by: 02 Louis Ferreira, Print Operator ([facility]). 02Note: Note 02 The Pap smear is [...] <-Panic Low,>-Panic High,A-Abnormal,AA-Critical Abnormal --Performed at:[address] [facility] [place] [address] Theodora Lowe MD, Reference Lab Test Patient Age Note . [facility] Comment on above: TESTS RESULT FLAG UN ITS REF RANGE LAB Clinician Provided Cytology Information Source.............Vagina No. of containers..01 ThinPrep VialAge Algo ACOG Dyan... 30-65 FLAG LEGEND: L-Low Normal,H-High Normal,LL-Alert Low,HH-Alert High <-Panic Low,>-Panic High,A-Abnormal,AA-Critical Abnormal --Performed at:01 =G [address] [address] Theodora Lowe MD, XR Knee - left [...] dislocation. Impression: Unremarkable left total knee arthroplasty. [facility] [employer] XR Knee - left 1 or 2 ViewsO rdered By: Jr. Quesada on 12-28-2023 [facility] [employer] Work Phone: XR Knee - left 1 or 2 Viewso n 12-26-2023 Radiology Study observation (narrative) [facility] [employer] Vaginitis (VG)on 03-03-2023 At[employer] Vaginae Low - 0 Normal . [facility] Comment on above: Performed By: #### V AGINITIS #### [facility] , BVAB2 Low - [address] [facility] Comment on above: Performed By: #### V AGINITIS #### [facility] , Yoly Albicans, LARRY Negative Normal Negative [facility] Comment on above: Result Comment: This test was developed and its performance characteristics determined by [facility]. It has not been cleared or approved by the Food and Drug Administration. Performed By: #### V AGINITIS #### [facility] , Yoly Glabrata, LARRY Negative Normal Negative [facility] Comment on above: Result Comment: This test was developed and its performance characteristics determined by [facility]. It has not been cleared or approved by the Food and Drug Administration. PERFORMED BY: [facility] [address] [place] [address] PATHOLOGIST LETTER OF CREDIT CLERK PENELOPE HANSON M.D. Performed By: #### V AGINITIS #### [facility] , Megasphaera Low - [address] [facility] Comment on above: Result Comment: Calc [...] developed and its performance characteristics determined by [employer]. It has not been cleared or approved by the Food and Drug Administration. Performed By: #### V AGINITIS #### [facility] , Tric Vag LARRY Negative Normal Negative [facility] Comment on above: Result Comment: Perf ormed at: =G - [facility] [address] [id number] Mix Chemist: Theodora Lowe MD, Phone: [phone] Performed By: #### V AGINITIS #### [facility] , XR FOOT LT MIN [...] CARLITOS PIÑA Date: 2022-11-23 22:41 Normal [facility] CBC AUTO DIFFon 11-02-2022 BASO # 0.1 103/ul Normal 0.0-0.1 [facility] Comment on above: Performed By: #### C BC ####[facility] [address] [place] [address]Dr. Major Kaye Basophils/100 WBC (Bld) 1.1 % Normal 0.2-2.0 [facility] Comment on above: Performed By: #### C BC ####[facility] [address] [place] [address]Dr. Major Kaye EO # 0.2 103/ul Normal 0.0-0.7 [facility] Comment on above: Performed By: #### C BC ####[facility] [address] [place] [address]Dr. Major Kaye Eosinophils/100 WBC (Bld) 3.2 % Normal 0.9-7.0 [facility] Comment on above: Performed By: #### C BC ####[facility] [address] [place], [place] [address]Dr. Major Kaye Erythrocyte distribution width (RBC) [Ratio] 13.2 % Normal 11.0-15.0 [facility] Comment on above: Performed By: #### C BC ####[facility] [address] [place], [place] [address]Dr. Major Kaye Hematocrit (Bld) [Volume fraction] 37.9 % Normal 36.0-48.0 [facility] Comment on above: Performed By: #### C BC ####[facility] [address] [place] [address]Dr. Major Kaye Hemoglobin (Bld) [Mass/Vol] 12.0 g/dL Normal 12.0-16.0 [facility] Comment on above: Performed By: #### C BC ####[facility] [address] [place] [address]Dr. Major Kaye IG # 0.02 10e3/ul Normal 0.00-0.03 [facility] Comment on above: Performed By: #### C BC ####[facility] [address] [place] [address]Dr. Major Kaye IG % 0.4 % Normal 0.0-0.5 [facility] Comment on above: Performed By: #### C BC ####[facility] [address] [place] [address]Dr. Major Kaye LYMPH # 1.5 103/ul Normal 1.2-3.8 [facility] Comment on above: Performed By: #### C BC ####[facility] [address] [place] [address]Dr. Major Kaye Lymphocytes/100 WBC (Bld) 26.4 % Normal 20.5-60.0 [facility] Comment on above: Performed By: #### C BC ####[facility] [address] [place], [place] [address]Dr. Major Kaye MANUAL DIFF REQ NO Normal [facility] Comment on above: Performed By: #### C BC ####[facility] [address] [place] [id number]. Major Kaye MCH (RBC) [Entitic mass] 29.6 pg Normal 26.7-34.0 [facility] Comment on above: Performed By: #### C BC ####[facility] [address] [place] [address]Dr. Major Kaye MCHC (RBC) [Mass/Vol] 31.7 g/dL Normal 29.9-35.2 [facility] Comment on above: Performed By: #### C BC ####[facility] [address] [place], [place] [id number]. Major Kaye MCV (RBC) [Entitic vol] 93.3 fL Normal 81.0-99.0 [facility] Comment on above: Performed By: #### C BC ####[facility] [address] [place], [place] [address]Dr. Major Kaye MONO # 0.4 103/ul Normal 0.3-0.8 [facility] Comment on above: Performed By: #### C BC ####[facility] [address] [place] [address]Dr. Major Kaye Monocytes/100 WBC (Bld) 7.6 % Normal 1.7-12.0 [facility] Comment on above: Performed By: #### C BC ####[facility] [address] [place] [address]Dr. Major Kaye NEUT # 3.4 103/ul Normal 1.4-6.5 [facility] Comment on above: Performed By: #### C BC ####[facility] [address] [place] [address]Dr. Major Kaye Neutrophils/100 WBC (Bld) 61.3 % Normal 43.0-75.0 [facility] Comment on above: Performed By: #### C BC ####[facility] [address] [place] [address]Dr. Major Kaye Platelet mean volume (Bld) [Entitic vol] 9.5 fL Normal 9.5-13.5 [facility] Comment on above: Performed By: #### C BC ####[facility] [address] [place] [address]Dr. Major Kaye PLT 350 103/ul Normal 150-450 [facility] Comment on above: Performed By: #### C BC ####[facility] [address] [place] [address]Dr. Major Kaye RBC 4.06 106/ul Critically low 4.20-5.40 [facility] Comment on above: Performed By: #### C BC ####[facility] [address] [place] [address]Dr. Major Kaye WBC 5.6 103/ul Normal 4.0-11.0 [facility] Comment on above: Performed By: #### C BC ####[facility] [address] [place] [address]Dr. Major Kaye POINT OF CARE GLUCOSEon 11-2 Glucose [Mass/Vol] 146 mg/dL Critically high 74-106 [facility] Comment on above: Performed By: #### P OCGLUC #### [facility] [address] [place], [place] [address] Dr. Major Kaye Glucose [Mass/Vol] 111 mg/dL Critically high 74-106 [facility] Comment on above: Performed By: #### P OCGLUC ####[facility] [address] [place] [place] [id number]. Major Kaye CBC AUTO DIFFon 09-28-2022 BASO # 0.1 103/ul Normal 0.0-0.1 [facility] Comment on above: Performed By: #### C BC ####[facility] Jrktyykfqm0764 [place] [address]Dr. Major Kaye Basophils/100 WBC (Bld) 0.7 % Normal 0.2-2.0 [facility] Comment on above: Performed By: #### C BC ####[facility] Akdvjgtprm[address] [place], [place] [address]Dr. Major Kaye EO # 0.2 103/ul Normal 0.0-0.7 [facility] Comment on above: Performed By: #### C BC ####[facility] Kynzs[address] [place], [place] [address]Dr. Major Kaye Eosinophils/100 WBC (Bld) 2.0 % Normal 0.9-7.0 [facility] Comment on above: Performed By: #### C BC ####[facility] Ibepbcrqac[address] [place], [place] [address]Dr. Major Kaye Erythrocyte distribution width (RBC) [Ratio] 12.7 % Normal 11.0-15.0 [facility] Comment on above: Performed By: #### C BC ####[facility] H[address]ts[address]okl[address] [place], [place] [address]Dr. Major Kaye Hematocrit (Bld) [Volume fraction] 35.7 % Critically low 36.0-48.0 [facility] Comment on above: Performed By: #### C BC ####[facility] Ogrfbeautj[address] [place], [place] [address]Dr. Major Kaye Hemoglobin (Bld) [Mass/Vol] 11.6 g/dL Critically low 12.0-16.0 [facility] Comment on above: Performed By: #### C BC ####[facility] Yqkcvuciyt9[address] [place] [address]DrGuerrero Kaye IG # 0.02 10e3/ul Normal 0.00-0.03 [facility] Comment on above: Performed By: #### C BC ####[facility] Ypqiylipcg7398 [place] [address]DrGuerrero Kaye IG % 0.3 % Normal 0.0-0.5 [facility] Comment on above: Performed By: #### C BC ####[facility] Vzdpazpdpl0447 [place] [address]DrGuerrero Kaye LYMPH # 1.7 103/ul Normal 1.2-3.8 [facility] Comment on above: Performed By: #### C BC ####[facility] Egzyrzezae6536 [place] [address]DrGuerrero Kaey Lymphocytes/100 WBC (Bld) 23.4 % Normal 20.5-60.0 [facility] Comment on above: Performed By: #### C BC ####[facility] Ypmktdkurm26[address] [place] [address]DrGuerrero Kaye MANUAL DIFF REQ NO Normal [facility] Comment on above: Performed By: #### C BC ####[facility] Ccswmalihe0[address] [place] [address]DrGuerrero Kaye MCH (RBC) [Entitic mass] 30.4 pg Normal 26.7-34.0 The [facility] Comment on above: Performed By: #### C BC ####[facility] Maazzsrfbt[address] [place] [id number] Kaye MCHC (RBC) [Mass/Vol] 32.5 g/dL Normal 29.9-35.2 The [facility] Comment on above: Performed By: #### C BC ####[facility] Aihgudlcoa[address] [place] [id number] Kaye MCV (RBC) [Entitic vol] 93.5 fL Normal 81.0-99.0 [facility] Comment on above: Performed By: #### C BC ####[facility] Zarkrmkzbl3976 [place] [id number]. Major Kaye MONO # 0.4 103/ul Normal 0.3-0.8 The [facility] Comment on above: Performed By: #### C BC ####[facility] Unpjvofgnk[address] [place] [id number]. Major Kaye Monocytes/100 WBC (Bld) 5.2 % Normal 1.7-12.0 [facility] Comment on above: Performed By: #### C BC ####[facility] Wgarboahvw4[address] [place] [address]Dr. Major Kaye NEUT # 5.0 103/ul Normal 1.4-6.5 The [facility] Comment on above: Performed By: #### C BC ####[facility] Dsxpmdulkl9963 [place] [address]Dr. Major Kaye Neutrophils/100 WBC (Bld) 68.4 % Normal 43.0-75.0 The [facility] Comment on above: Performed By: #### C BC ####[facility] Rswqgsroww[address] [place], [place] [address]Dr. Major Kaye Platelet mean volume (Bld) [Entitic vol] 10.0 fL Normal 9.5-13.5 The [facility] Comment on above: Performed By: #### C BC ####[facility] Xjltr[address]du[address] [place], [place] [address]Dr. Major Kaye PLT 297 103/ul Normal 150-450 The [facility] Comment on above: Performed By: #### C BC ####[facility] Mtniochzgy30[address] [place] [id number]. Major Kaye RBC 3.82 106/ul Critically low 4.20-5.40 The [facility] Comment on above: Performed By: #### C BC ####[facility] Lyubligqnk6190 [place] [id number]. Major Kaye WBC 7.3 103/ul Normal 4.0-11.0 The [facility] Comment on above: Performed By: #### C BC ####[facility] Shsv[address]ajqgz4[address] [place], [place] [address]AlDr. Major Kaye [facility]on 09[facility]14 SARS-CoV-2 (COVID-19) RNA LARRY+probe Ql (Unsp spec) Not detected Normal NOT DETECTED The [facility] Comment on above: Result Comment: This test is not yet approved or cleared by the [place] FDA. When there are no FDA-approved or cleared tests available, and other criteria are met, FDA can make tests available under an emergency access mechanism called an Emergency Use Authorization (EUA). The EUA for this test is supported by the Unemployment Insurance Hearing Officer of Health and Human Service's (HHS's) declaration [...] SARS-CoV-2. Performed By: #### C VDTB #### [facility] [address] [place] [id number] Major Kaye PROF CHEM 8 (BAS METB)on Anion gap [Moles/Vol] 8.8 mmol/L Normal [facility] Comment on above: Performed By: #### B MP #### [facility] [address] [place], [place] [address] Dr. Major Kaye Calcium [Mass/Vol] 8.2 mg/dL Critically low 8.5-10.1 Th e [facility] Comment on above: Performed By: #### B MP #### [facility] [address] [place], [place] [address] Dr. Major Kaye Chloride [Moles/Vol] 104 mmol/L Normal 98-107 [facility] Comment on above: Performed By: #### B MP #### [facility] [address] [place] [address] [address] Major Kaye CO2 [Moles/Vol] 28.4 mmol/L Normal 21.0-32.0 The [facility] Comment on above: Performed By: #### B MP #### [facility] [address] [place] [address] [address] Major Kaye Creatinine [Mass/Vol] 0.56 mg/dL Normal 0.55-1.02 The [facility] Comment on above: Performed By: #### B MP #### [facility] [address] [place] [address] [address] Major Kaye EGFR-AF CITIZEN OF [place] >60 Normal >=60 The [facility] Comment on above: Performed By: #### B MP #### [facility] [address] [place] [address] Dr. Major Kaye EGFR-NON AF CITIZEN OF [place] >60 Normal >=60 The [facility] Comment on above: Performed By: #### B MP #### [facility] [address] [place] [address] Dr. Major Kaye Glucose [Mass/Vol] 95 mg/dL Normal 74-106 The [facility] Comment on above: Performed By: #### B MP #### [facility] [address] [place] [address] Dr. Major Kaye Potassium [Moles/Vol] 4.2 mmol/L Normal 3.5-5.1 The [facility] Comment on above: Performed By: #### B MP #### [facility] [address] [place] [address] Dr. Majro Kaye Sodium [Moles/Vol] 137 mmol/L Normal 136-145 The [facility] Comment on above: Performed By: #### B MP #### [facility] [address] [place] [address] Dr. Major Kaye Urea nitrogen [Mass/Vol] 11.0 mg/dL Normal 7.0-18.0 The [facility] Comment on above: Performed By: #### B MP #### [facility] [address] [place] [address] Dr. Major Kaye Urea nitrogen/Creatinine [Mass ratio] 19.6 mg/mg Normal The [facility] Comment on above: Performed By: #### B #### [facility] [address] [place] [address] [address] Major Kaye XR LSPINE MIN 4 [...] LOC DELACRUZ Date: 2022-08-05 14:26 Normal The [facility] SCREENING MAMMOGRAM W/ANU, BILATERAL*on 07-15-2022 SCREENING MAMMOGRAM [...] VERY IMPORTANT TO YOUR HEALTH. THE CURRENT CITIZEN OF [place] [employer] OF [employer]IOLOG[employer] AND NATIONAL COMPREHENSIVE [employer] NETWORK GUIDELINES RECOMMENDS ANNUAL MAMMOGRAPHY BEGINNING AT AGE 42 THIS FACILITY USES A REMINDER SYSTEM TO ENSURE ALL PATIENTS RECEIVE REMINDER NOTIFICATIONS AT THE APPROPRIATE TIME BASED ON THE RECOMMENDATIONS OF THIS EXAM. Report reported and signed by Chad Montgomery on 07/15/2022 0945 Normal [facility] Open Tenter Operator CNOVon 01-11-2020 CNOV Office Visit (PAINLN ) RACHELE FLORES ([id number]) 1960 F Date Time Provider Department 01/11/20 8:30 AM CESAR GUERRERO During your visit today, we recorded the following information about you: Pulse Weight Height 99/minute 64.9 kg 1.575 m Cesar Guerrero DO 01/11/2020 10:29 AM Signed [facility] Initial Evaluation January 11, 2020 This appointment was requested by Adelia Vega, for my medical opinion regarding? the evaluation and management of the patient's Rachele Flores problems, and my final recommendations will be communicated to the requesting health care provider by way of the shared medical record for internal providers or letter via the [employer] for external providers. SUBJECTIVE: Rachele Flores a 59 year old presents to [facility] Pain Management Department, accompanied by spouse, Rik, [...] No history of dysuria, frequency or incontinence PAINTER BOTTOM: Negative for abnormal vaginal bleeding, abnormal vaginal [...] supervised home exercise program (HEP) No 5. Acute Care Nurse: No Passive conservative therapy lasting 6 weeks in the last six months (see below) 1. Medical devises: Yes cane 2. Acupuncture: No 3. Tens unit: No 4. Prescription pain medication: Yes 5. NSAIDS: No Do you feel safe at home? Yes Risk assessment at risk due to fall:None3 Marycarmen Clayton MEHRDAD January 11, 2020 The subjective information, including [...] area with pain radiates to the right yazidi Back: No pain on palpation of the [...] neck pain that radiates to the right yazidi with occasional twitches of her right eyebrow. She had multiple occipital nerve blocks which helps but not for intermodal customer service.She have tried multiple medications including gabapentin , [...] participate in Rachele Flores's care. Cesar Guerrero, January 09, 2020 Referring Provider: ANJANA VEGA [...] right side [M54.81] Order(s):CONSULT TO PAIN MGT [[id number]] Order #: [id number]: 1 Prescriptions as of 01/11/2020 Sig: LISINOPRIL [...] by CESAR GUERRERO DO on 01/11/20 Normal [facility] MRI BRAIN WO/W IVCONon 01-11 MRI [...] UNREMARKABLE MRI BRAIN WITH AND WITHOUT CONTRAST. 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 Author Type: Physician Type: Progress Notes Filed: 01/11/2020 10:29 AM Note Text: [facility] Initial Evaluation January 11, 2020 This appointment was requested by Adelia Vega, for my medical opinion regarding? the evaluation and management of the patient's Rachele Flores problems, and my final recommendations will be communicated to the requesting health care provider by way of the shared medical record for internal providers or letter via the [employer] for external providers. SUBJECTIVE: Rachele Flores a 59 year old presents to [facility] Pain Management Department, accompanied by spouse, Rik, [...] No history of dysuria, frequency or incontinence PAINTER BOTTOM: Negative for abnormal vaginal bleeding, abnormal vaginal [...] supervised home exercise program (HEP) No 5. Acute Care Nurse: No Passive conservative therapy lasting 6 weeks [...] area with pain radiates to the right yazidi Back: No pain on palpation of the [...] neck pain that radiates to the right yazidi with occasional twitches of her right eyebrow. She had multiple occipital nerve blocks which helps but not for jail.She have tried multiple medications including gabapentin , [...] Cesar Guerrero DO January 09, 2020 Normal [facility] CNOVon 12-10-2019 CNOV Office Visit (NEHAMN ) RACHELE FLORES ([id number]) 1960 F Date Time Provider Department 12/10/19 9:30 AM ANJANA VEGA During your visit today, we recorded the following information about you: Pulse Blood pressure Weight Height 107/minute 129/87 67.6 kg 1.575 m Anjana Vega MD 12/10/2019 5:27 PM Signed Bry Mendez MD [address] [place] [id number] PCP: No primary care provider on file. [...] Did not have headaches much growing up. 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 Short and intermodal customer service memory, cognition and general fund of knowledge [...] visit Zaida Romo MD PGY-3 Neurology Resident [id number] December 10, 2019 8:36 AM Total time [...] pain, and counseling about diet, medications, and jail implications. The patient has my contact information [...] Device, open up the Demetra Store or Yard Club and search [facility] Restaurant.com Care Online ? Download and Install the Application ? Tap on Sign Up and create a patient account for yourself ? Please use an e-mail address that you frequently check, as you will receive an e-mail appointment from [facility] Restaurant[employer]com Care Online ? Find our user guide, here: [email or web address] Or, on a desktop/laptop computer that has a webcam connected, go to the URL: [email or web address] (formerly [email or web address] ? Click on Sign Up and Create a patient account for yourself ? Please also follow the links to ?Test My Computer? ? Follow the steps suggested, testing your Internet Speed, Webcam, Microphone, Speaker, and your video software. ? Please make sure your video software is up-to-date. This is a safe, [facility] approved download, and will not harm your [...] call the Clinic Connect Technical Services at [phone] or toll free [phone] prior to your visit if you need help setting up your device. ? Referring Provider: BRY MENDEZ [[id number]] Allergies As of Date: 12/10/2019 (No Known [...] 90 tabletRfl: 11 CONSULT TO PAIN MGT [740818] Order #: [id number]: [id number] FUTURE MRI BRAIN WO/W IVCON [[id number]] Order #: [id number] FUTURE iv contrast (will be provided with [...] patients, providers, and family members through a ?SkCallApp?-like Connection for live audio and video communication. [...] Device, open up the Demetra Store or Yard Club and search [facility] Express Care Online ? Download and Install the Application ? Tap on Sign Up and create a patient account for yourself ? Please use an e-mail address that you frequently check, as you will receive an e-mail appointment from [facility] Express Care Online ? Find our user guide, here: [email or web address] Or, on a desktop/laptop computer that has a webcam connected, go to the URL: [email or web address] ? Click on Sign Up and Create a patient account for yourself ? Please also follow the links to ?Test My Computer? ? Follow the steps suggested, testing your Internet Speed, Webcam, Microphone, Speaker, and your video software. ? Please make sure your video software is up-to-date. This is a safe, [facility] approved download, and will not harm your [...] to the provider. ? Please call the [facility] Connect Technical Services at [phone] or toll free [phone] prior to your visit if you need [...] by ANJANA VEGA MD on 12/10/19 Normal [facility] PROGRESSon 12-10-2019 PROGRESS HNO ID: [id number] Author: Anjana Vega Service: ? Author Type: Physician Type: Progress Notes Filed: 12/10/2019 5:27 PM Note Text: Bry Mendez MD [address] [place] [id number] PCP: No primary care provider on file. [...] Did not have headaches much growing up. 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 Short and intermodal customer service memory, cognition and general fund of knowledge [...] 2/4 2/4 Knee 1/4 1/4 Ankle 1/4 /4 Babinski: bilaterally down-going toes Pathological Reflexes: absent. [...] visit Zaida Romo MD PGY-3 Neurology Resident [id number] December 10, 2019 8:36 AM Total time [...] pain, and counseling about diet, medications, and intermodal customer service implications. The patient has my contact information [...] as outlined above. MD Anjana Cherry MD [facility] Vital Signs Date Time Vital Sign Value Performing Clinician Facility 05-30-2025 09:00-0400 Body mass index (BMI) [Ratio] 29.26 kg/m2 Dian Soriano DAIRY HUSBANDMAN Work Phone: [facility] 05-30-2025 09:00-0400 Body temperature 98.49 [degF] Dian Soriano DAIRY HUSBANDMAN Work Phone: [facility] 05-30-2025 09:00-0400 Body weight 72.58 kg Dian Soriano DAIRY HUSBANDMAN Work Phone: [facility] 05-30-2025 09:00-0400 Diastolic blood pressure 80 mm[Hg] Dian Aichholz DAIRY HUSBANDMAN Work Phone: [facility] 05-30-2025 09:00-0400 Heart rate 93 /min Dian Aichholz DAIRY HUSBANDMAN Work Phone: [facility] 05-30-2025 09:00-0400 Respiratory rate 20 /min Dian Aichholz DAIRY HUSBANDMAN Work Phone: [facility] 05-30-2025 09:00-0400 SaO2% (BldA) [Mass fraction] 98 % Dian Aichholz DAIRY HUSBANDMAN Work Phone: [facility] 05-30-2025 09:00-0400 Systolic blood pressure 116 mm[Hg] Dian Aichholz DAIRY HUSBANDMAN Work Phone: [facility] 02-28-2025 08:58-0400 Body mass index (BMI) [Ratio] 29.7 kg/m2 Dian Aichholz DAIRY HUSBANDMAN Work Phone: [facility] 02-28-2025 08:58-0400 Body temperature 98.8 [degF] Dian Aichholz DAIRY HUSBANDMAN Work Phone: [facility] 02-28-2025 08:58-0400 Body weight 73.66 kg Dian Aichholz DAIRY HUSBANDMAN Work Phone: [facility] 02-28-2025 08:58-0400 Diastolic blood pressure 82 mm[Hg] Dian Aichholz DAIRY HUSBANDMAN Work Phone: [facility] 02-28-2025 08:58-0400 Heart rate 84 /min Dian Aichholz DAIRY HUSBANDMAN Work Phone: [facility] 02-28-2025 08:58-0400 Respiratory rate 18 /min Dian Aichholz DAIRY HUSBANDMAN Work Phone: [facility] 02-28-2025 08:58-0400 SaO2% (BldA) [Mass fraction] 98 % Dian Aichholz DAIRY HUSBANDMAN Work Phone: [facility] 02-28-2025 08:58-0400 Systolic blood pressure 116 mm[Hg] Dian Soriano DAIRY HUSBANDMAN Work Phone: [facility] 11-29-2024 08:56-0500 Body height 157.5 cm Cyndi Piper DAIRY HUSBANDMAN Work Phone: [facility] 11-29-2024 08:56-0500 Body mass index (BMI) [Ratio] 26.16 kg/m2 Cyndi Piper DAIRY HUSBANDMAN Work Phone: [facility] 11-29-2024 08:56-0500 Body temperature 96.8 [degF] Cyndi Piper DAIRY HUSBANDMAN Work Phone: [facility] 11-29-2024 08:56-0500 Body weight 64.86 kg Cyndi Piper DAIRY HUSBANDMAN Work Phone: [facility] 11-29-2024 08:56-0500 Diastolic blood pressure 80 mm[Hg] Cyndi Piper DAIRY HUSBANDMAN Work Phone: [facility] 11-29-2024 08:56-0500 Heart rate 109 /min Cyndi Piper DAIRY HUSBANDMAN Work Phone: [facility] 11-29-2024 08:56-0500 Respiratory rate 16 /min Cyndi Piper DAIRY HUSBANDMAN Work Phone: [facility] 11-29-2024 08:56-0500 SaO2% (BldA) [Mass fraction] 99 % Cyndi Piper DAIRY HUSBANDMAN Work Phone: [facility] 11-29-2024 08:56-0500 Systolic blood pressure 118 mm[Hg] Cyndi Piper DAIRY HUSBANDMAN Work Phone: [facility] 08-06-2024 09:48-0400 Body height 157.5 cm Cyndi Piper DAIRY HUSBANDMAN Work Phone: [facility] 08-06-2024 09:48-0400 Body mass index (BMI) [Ratio] 27.44 kg/m2 Cyndi Piper DAIRY HUSBANDMAN Work Phone: [facility] 08-06-2024 09:48-0400 Body temperature 98.4 [degF] Cynid Piper DAIRY HUSBANDMAN Work Phone: [facility] 08-06-2024 09:48-0400 Body weight 68.04 kg Cyndi Piper DAIRY HUSBANDMAN Work Phone: [facility] 08-06-2024 09:48-0400 Diastolic blood pressure 80 mm[Hg] Cyndi Piper DAIRY HUSBANDMAN Work Phone: [facility] 08-06-2024 09:48-0400 Heart rate 97 /min Cyndi Piper DAIRY HUSBANDMAN Work Phone: [facility] 08-06-2024 09:48-0400 SaO2% (BldA) [Mass fraction] 99 % Cyndi Piper DAIRY HUSBANDMAN Work Phone: [facility] 08-06-2024 09:48-0400 Systolic blood pressure 114 mm[Hg] Cyndi Piper DAIRY HUSBANDMAN Work Phone: [facility] 03-19-2024 11:04-0400 Body height 156.21 cm [facility] 03-19-2024 11:04-0400 Body mass index (BMI) [Ratio] 28.6 kg/m2 [facility] 03-19-2024 11:04-0400 Body weight 69.85 kg [facility] 03-19-2024 11:04-0400 Diastolic blood pressure 90 mm[Hg] [facility] 03-19-2024 11:04-0400 Heart rate 96 /min [facility] 03-19-2024 11:04-0400 Systolic blood pressure 125 mm[Hg] [facility] 11-15-2023 09:45-0500 Body height 156.21 cm Vadim Cornejo Other [facility] Other 11-15-2023 09:45-0500 Body mass index (BMI) [Ratio] 28.07 kg/m2 Vadim Cornejo Other [facility] Other 11-15-2023 09:45-0500 Body weight 68.49 kg Vadim Cornejo Other [facility] Other 11-15-2023 09:45-0500 Diastolic blood pressure 78 mm[Hg] Vadim Cornejo Other [facility] Other 11-15-2023 09:45-0500 Systolic blood pressure 118 mm[Hg] Vadim Cornejo Other [facility] Other 03-03-2023 10:15-0400 Body height 156.21 cm Vadim Cornejo Other [facility] Other 03-03-2023 10:15-0400 Body mass index (BMI) [Ratio] 29.37 kg/m2 Vadim Cornejo Other [facility] Other 03-03-2023 10:15-0400 Body weight 71.67 kg Vadim Cornejo Other [facility] Other 03-03-2023 10:15-0400 Diastolic blood pressure 78 mm[Hg] Vadim Cornejo Other [facility] Other 03-03-2023 10:15-0400 SaO2% (BldA) [Mass fraction] 97 % Vadim Cornejo Other [facility] Other 03-03-2023 10:15-0400 Systolic blood pressure 116 mm[Hg] Vadim Cornejo Other [facility] Other 05-27-2022 12:45-0400 Body height 157.48 cm Nazanin Valladares Other [facility] Other 05-27-2022 12:45-0400 Body mass index (BMI) [Ratio] 27.4 kg/m2 Nazanin Valladares Other [facility] Other 05-27-2022 12:45-0400 Body weight 67.95 kg Nazanin Valladares Other [facility] Other 05-27-2022 12:45-0400 Diastolic blood pressure 66 mm[Hg] Nazanin Valladares Other [facility] Other 05-27-2022 12:45-0400 Respiratory rate 18 /min Nazanin Valladares Other [facility] Other 05-27-2022 12:45-0400 SaO2% (BldA) [Mass fraction] 99 % Nazanin Valladares Other [facility] Other 05-27-2022 12:45-0400 Systolic blood pressure 118 mm[Hg] Nazanin Valladares Other [facility] Other 05-07-2022 10:45-0400 Body height 157.48 cm Aneesh Tereso Other [facility] Other 05-07-2022 10:45-0400 Body mass index (BMI) [Ratio] 27.43 kg/m2 Aneesh Rider Other [facility] Other 05-07-2022 10:45-0400 Body weight 68.04 kg Aneesh Rider Other [facility] Other 05-07-2022 10:45-0400 Diastolic blood pressure 70 mm[Hg] Aneesh Tereso Other [facility] Other 05-07-2022 10:45-0400 SaO2% (BldA) [Mass fraction] 95 % Aneesh Rider Other [facility] Other 05-07-2022 10:45-0400 Systolic blood pressure 122 mm[Hg] Aneesh Tereso Other [facility] Other 04-20-2022 10:15-0400 Body height 157.48 cm Aneesh Rider Other [facility] Other 04-20-2022 10:15-0400 Body mass index (BMI) [Ratio] 27.1 kg/m2 Aneesh Rider Other [facility] Other 04-20-2022 10:15-0400 Body weight 67.22 kg Aneesh Rider Other [facility] Other 04-20-2022 10:15-0400 Diastolic blood pressure 80 mm[Hg] Aneesh Rider Other [facility] Other 04-20-2022 10:15-0400 SaO2% (BldA) [Mass fraction] 99 % Aneesh Rider Other [facility] Other 04-20-2022 10:15-0400 Systolic blood pressure 142 mm[Hg] Aneesh Rider Other [facility] Other 04-02-2022 11:30-0400 Body height 157.48 cm Aneesh Rider Other [facility] Other 04-02-2022 11:30-0400 Body mass index (BMI) [Ratio] 27.07 kg/m2 Aneesh Rider Other [facility] Other 04-02-2022 11:30-0400 Body weight 67.13 kg Aneesh Rider Other [facility] Other 04-02-2022 11:30-0400 Diastolic blood pressure 60 mm[Hg] Aneesh Rider Other [facility] Other 04-02-2022 11:30-0400 Systolic blood pressure 120 mm[Hg] Aneesh Tereso Other [facility] Other 12-22-2021 10:00-0500 Body height 157.48 cm Aneesh Rider Other [facility] Other 12-22-2021 10:00-0500 Body mass index (BMI) [Ratio] 26.7 kg/m2 Aneesh Rider Other [facility] Other 12-22-2021 10:00-0500 Body weight 66.23 kg Aneesh Rider Other [facility] Other 12-22-2021 10:00-0500 Diastolic blood pressure 82 mm[Hg] Aneesh Rider Other [facility] Other 12-22-2021 10:00-0500 SaO2% (BldA) [Mass fraction] 95 % Aneesh Rider Other [facility] Other 12-22-2021 10:00-0500 Systolic blood pressure 128 mm[Hg] Aneesh Rider Other [facility] Other 09-24-2021 10:00-0500 Body height 157.48 cm Prema Brendan Other [facility] Other 09-24-2021 10:00-0500 Body mass index (BMI) [Ratio] 26.34 kg/m2 Prema Brendan Other [facility] Other 09-24-2021 10:00-0500 Body weight 65.32 kg Prema Brendan Other [facility] Other 09-24-2021 10:00-0500 Diastolic blood pressure 60 mm[Hg] Prema Brendan Other [facility] Other 09-24-2021 10:00-0500 Systolic blood pressure 110 mm[Hg] Prema Brendan Other [facility] Other 08-14-2021 12:30-0400 Body height 157.48 cm Aneesh Tereso Other [facility] Other 08-14-2021 12:30-0400 Body mass index (BMI) [Ratio] 26.34 kg/m2 Aneesh Rider Other [facility] Other 08-14-2021 12:30-0400 Body weight 65.32 kg Aneeshqi Rider Other [facility] Other 08-14-2021 12:30-0400 Diastolic blood pressure 66 mm[Hg] Aneesh Rider Other [facility] Other 08-14-2021 12:30-0400 Systolic blood pressure 110 mm[Hg] Aneesh Rider Other [facility] Other Encounters Encounter Date Encounter Type Care Provider Facility Start: 06-20-2025 End: 06-23-2025 Refill Dian Soriano [employer]USB[employer] Work Phone: [facility] Comment on above: Generalized anxiety disorder Start: 06-18-2025 End: 06-18-2025 Bamboo flowsheet Jr. Glenn Quesada DO Work Phone: [facility] Start: 06-18-2025 End: 06-18-2025 Bamboo flowsheet JrGuerrero Quesada DO Work Phone: [facility] Start: 06-18-2025 End: 06-18-2025 ambulatory GLENN RANDOLPH Not Available Start: 06-03-2025 End: 06-03-2025 Bamboo flowsheet Maximus Stewart NP Work Phone: [facility] Start: 06-03-2025 End: 06-04-2025 Bamboo flowsheet Maximus Stewart [employer] Work Phone: [facility] Start: 06-03-2025 End: 06-04-2025 External Result Encounter Maximus Stewart [employer]USB[employer] Work Phone: [facility] External Department Unsolicited Start: 06-03-2025 End: 06-03-2025 Office outpatient visit 15 minutes Maximus Stewart NP Work Phone: [facility] Comment on above: Status post left kne e replacement (Primary Dx); Acute pain of left knee Start: 06-03-2025 End: 06-03-2025 ambulatory MAXIMUS STEWART Not Available Start: 05-30-2025 End: 05-30-2025 Bamboo flowsheet Dian Soriano [employer]USB[employer] Work Phone: [facility] Start: 05-30-2025 End: 05-30-2025 Bamboo flowsheet Dian Soriano [employer]USB[employer] Work Phone: [facility] Start: 05-30-2025 End: 05-30-2025 Office outpatient visit 15 minutes Dian Soriano [employer]USB[employer] Work Phone: [facility] Comment on above: Adult hypothyroidism (Primary Dx); Primary hypertension ; Severe anxiety with panic ; Generalized anxiety disorder Start: 05-30-2025 End: 05-30-2025 ambulatory DIAN AICHNILOZ Not Available Start: 04-28-2025 End: 04-29-2025 Refill Alejo Zavala MD Work Phone: [facility] Comment on above: Primary hypertension Start: 04-21-2025 End: 04-21-2025 Refill Dian Bo [employer]USB[employer] Work Phone: [facility] Comment on above: Generalized anxiety disorder (CMS/HCC) Start: 04-11-2025 End: 04-12-2025 Telephone encounter Maximus Stewart NP Work Phone: [facility] Start: 04-01-2025 End: 04-01-2025 Bamboo flowsheet Maximus Stewart NP Work Phone: [facility] Start: 04-01-2025 End: 04-01-2025 Bamboo flowsheet Maximus Stewart [employer]USB[employer] Work Phone: [facility] Start: 04-01-2025 End: 04-01-2025 Office outpatient visit 25 minutes Maximus Stewart NP Work Phone: [facility] Comment on above: Acute pain of left k nee (Primary Dx); Status post left knee replacement Start: 04-01-2025 End: 04-01-2025 ambulatory MAXIMUS STEWART Not Available Start: 03-27-2025 End: 03-27-2025 ambulatory Lai LEBRON Facility:[id number] Start: 03-20-2025 End: 03-20-2025 Refill Dian Bo [employer]USB[employer] Work Phone: [facility] Comment on above: Adult hypothyroidism (CMS/HCC) (Primary Dx) Start: 03-12-2025 End: 03-12-2025 ambulatory DIAN J EVELYNJenyALEXIS Facility: [facility] Start: 02-28-2025 ambulatory DIAN EVELYNJenyNILOJim Facility: [facility] Start: 02-28-2025 End: 02-28-2025 Bamboo flowsheet Dian Mcphersonalexis [employer]USB[employer] Work Phone: [facility] Start: 02-28-2025 End: 02-28-2025 Bamboo flowsheet Dian Evelynjenyalexis [employer]USB[employer] Work Phone: [facility] Start: 02-28-2025 End: 02-28-2025 Office outpatient visit 25 minutes Dian Bo [employer]USB[employer] Work Phone: [facility] Comment on above: Severe anxiety with panic (CMS/HCC) (Primary Dx); Primary hypertension (CMS/HCC); Gastroesophageal reflux disease, unspecified whether esophagitis present; Osteopenia, unspecified location; Adult hypothyroidism (CMS/HCC); Irritable bowel syndrome with both constipation and diarrhea; Colon cancer screening; Osteoarthritis of left knee, unspecified osteoarthritis type Start: 02-28-2025 End: 02-28-2025 ambulatory DIAN MCPHERSONNILOJim Not Available Start: 02-26-2025 End: 02-26-2025 Refill Dian Evelynjenyalexis [employer] Work Phone: [facility] Comment on above: Generalized anxiety disorder (CMS/HCC) Start: 01-04-2025 End: 01-04-2025 Orders Only Alejo Zavala MD Work Phone: [facility] Comment on above: TSH elevation Start: 12-26-2024 End: 12-26-2024 Refill Cyndi Dalek [employer]USB[employer]MAN Work Phone: [facility] Comment on above: Generalized anxiety disorder (CMS/HCC) Start: 11-29-2024 End: 11-29-2024 Office outpatient visit 15 minutes Cyndi Piper [employer]USB[employer] Work Phone: [facility] Comment on above: TSH elevation (Prima ry Dx); Generalized anxiety disorder (CMS/HCC); Primary hypertension (CMS/HCC) Start: 11-29-2024 End: 11-29-2024 ambulatory CYNDI PIPER Not Available Start: 10-25-2024 End: 10-25-2024 Refill Cyndi Piper [employer]USB[employer] Work Phone: [facility] Comment on above: Generalized anxiety disorder (CMS/HCC) Start: 10-17-2024 End: 10-17-2024 Orders Only Cyndi Piper [employer]USB[employer] Work Phone: [facility] Start: 09-30-2024 End: 10-01-2024 Refill Cyndi Piper [employer]USB[employer] Work Phone: [facility] Comment on above: Generalized anxiety disorder (CMS/HCC) Start: 09-26-2024 End: 09-26-2024 ambulatory BARRETT VINI Not Available Start: 09-02-2024 End: 09-03-2024 Refill Cyndi Piper [employer]USB[employer] Work Phone: [facility] Comment on above: Generalized anxiety disorder (CMS/HCC) Start: 08-20-2024 End: 08-20-2024 Orders Only Cyndi Piper [employer]USB[employer] Work Phone: [facility] Comment on above: TSH elevation (Prima ry Dx) Start: 08-06-2024 End: 08-06-2024 Bamboo flowsheet Cyndi Piper [employer]USB[employer] Work Phone: [facility] Start: 08-06-2024 End: 08-06-2024 Bamboo flowsheet Cyndi Piper [employer]USB[employer] Work Phone: [facility] Start: 08-06-2024 End: 08-06-2024 Initial preventive medicine new patient 40-64yrs Cyndi Piper [employer]USB[employer]MAN Work Phone: [facility] Comment on above: Encounter to establi care (Primary Dx); Wellness examination; Primary hypertension (CMS/HCC); Generalized anxiety disorder (CMS/HCC); Fibromyalgia; Osteoarthritis involving multiple joints on both sides of body Start: 08-06-2024 End: 08-06-2024 Patient encounter status Cyndi Piper DA[employer]Y HUSBANDMAN Work Phone: [facility] Start: 08-06-2024 End: 08-06-2024 ambulatory CYNDI PIPER Not Available Start: 03-19-2024 End: 03-19-2024 ambulatory [facility] Work Phone: Start: 03-19-2024 End: 03-19-2024 Patient encounter procedure [facility] Phys[facility] Work Phone: Start: 03-12-2024 Non-patient / Non-visit [facility] Physician [facility] Work Phone: Start: 01-19-2024 Non-patient / Non-visit [facility] Physician [facility] Work Phone: Start: 12-26-2023 Bamboo flowsheet Maximus Stewart [employer]USB[employer] Work Phone: [facility] Start: 12-26-2023 Bamboo flowsheet Maximus Stewart [employer]USB[employer] Work Phone: [facility] Start: 12-26-2023 End: 12-26-2023 Office outpatient visit 15 minutes Maximus Stewart [employer]USB[employer] Work Phone: [facility] Comment on above: Knee strain, left, i nitial encounter (Primary Dx); Primary osteoarthritis of left knee; Status post left knee replacement Start: 12-14-2023 End: 12-14-2023 ambulatory Vadim Cornejo Other [facility] Other Start: 12-14-2023 Telephone encounter Vadim Cornejo [facility] Start: 12-12-2023 End: 12-12-2023 ambulatory Vadim Cornejo Other [facility] Other Start: 12-12-2023 Telephone encounter Vadim Cornejo [facility] Start: 12-01-2023 End: 12-01-2023 ambulatory Vadim Cornejo Other [facility] Other Start: 12-01-2023 Telephone encounter Vadim Cornejo [facility] Start: 11-16-2023 End: 11-16-2023 ambulatory Vadim Cornejo Other [facility] Other Start: 11-16-2023 Telephone encounter Vadim Cornejo [facility] Start: 11-15-2023 End: 11-15-2023 ambulatory Vadim Cornejo Other [facility] Other Start: 11-15-2023 Office outpatient vi sit 15 minutes Vadim Cornejo [facility] Start: 11-08-2023 End: 11-08-2023 ambulatory Vadim Cornejo Other [facility] Other Start: 11-08-2023 Telephone encounter Vadim Cornejo [facility] Start: 10-24-2023 End: 10-24-2023 ambulatory Vadim Cornejo Other [facility] Other Start: 10-24-2023 Telephone encounter Vadim Cornejo [facility] Start: 10-17-2023 End: 10-17-2023 ambulatory Vadim Cornejo Other [facility] Other Start: 10-17-2023 Telephone encounter Vadim Cornejo [facility] Start: 06-30-2023 End: 06-30-2023 ambulatory Vadim Cornejo Other [facility] Other Start: 06-30-2023 Telephone encounter Vadim Cornejo [facility] Start: 06-28-2023 End: 06-28-2023 ambulatory Vadim Cornejo Other [facility] Other Start: 06-28-2023 Telephone encounter Vadim Cornejo [facility] Start: 05-09-2023 End: 05-09-2023 ambulatory Vadim Cornejo Other [facility] Other Start: 05-09-2023 Telephone encounter Vadim Clemente [facility] Start: 03-23-2023 End: 03-23-2023 ambulatory Vadim Cornejo Other [facility] Other Start: 03-23-2023 Telephone encounter Vadim Clemente [facility] Start: 03-03-2023 Office outpatient vi sit 15 minutes Vadim Clemente [facility] Start: 03-03-2023 End: 03-03-2023 ambulatory Vadim Cornejo Facility:[facility] Start: 03-03-2023 End: 03-03-2023 ambulatory MD Vadim Cornejo Work Phone: [facility] Work Phone: Start: 03-03-2023 End: 03-03-2023 Departed Referred MD Vadim Cornejo Work Phone: [facility] Work Phone: Start: 02-28-2023 End: 02-28-2023 ambulatory Vadim Cornejo Other [facility] Other Start: 02-28-2023 Telephone encounter Vadim Clemente [facility] Start: 02-25-2023 End: 02-25-2023 ambulatory Vadim Clemente Other [facility] Other Start: 02-25-2023 Telephone encounter Vadim Clemente [facility] Start: 02-09-2023 End: 02-10-[address] CARLITOS VANEGAS Facility: Start: 02-03-2023 End: 02-03-2023 ambulatory Vadim Cornejo Other [facility] Other Start: 02-03-2023 Telephone encounter Vadim Clemente [facility] Start: 12-28-2022 End: 12-28-2022 ambulatory Vadim Clemente Other [facility] Other Start: 12-28-2022 Telephone encounter Vadim Cornejo [facility] Start: 12-15-2022 End: 12-16-[address] LOC DELACRUZ Facility:[facility] Start: 11-23-2022 End: 11-24-2022 ambulatory CEZARKASANDRA PETIT Facility:[facility] Start: 11-02-2022 End: 11-03-[address] DOCTOR CASTORENA Facility:[facility] Start: 10-26-2022 End: 10-27-[address] LOC DELACRUZ Facility:[facility] Start: 10-07-2022 End: 10-07-[address] SANTY TREVINO Facility:[facility] Start: 10-05-2022 End: 10-05-[address] LOC DELACRUZ Facility:[facility] Start: 10-02-2022 Encounter for preprocedural cardiovascular examination [facility] Start: 10-02-2022 Encounter for preprocedural laboratory examination [facility] Start: 09-28-2022 End: 09-29-2022 ambulatory DALLIN Angulo [facility] Facility:[facility] Start: 09-28-2022 End: 09-29-2022 Encounter for preprocedural cardiovascular examination [facility]ulo [facility] Facility:[facility] Start: 09-15-2022 End: 09-16-[address] CARLITOS VANEGAS Facility:[facility] Start: 08-05-2022 End: 08-06-[address] LOC DELACRUZ Facility:[facility] Start: 05-27-2022 End: 05-27-2022 ambulatory Nazanin Valladares Other [facility] Other Start: 05-27-2022 Office outpatient vi sit 15 minutes Nazanin Valladares [facility] Start: 05-07-2022 End: 05-07-2022 ambulatory Aneesh Rider Other [facility] Other Start: 05-07-2022 Office outpatient vi sit 25 minutes Aneesh Rider [facility] Start: 05-07-2022 Telephone encounter Aneesh Rider [facility] Start: 04-20-2022 End: 04-20-2022 ambulatory Aneesh Tereso Other [facility] Other Start: 04-20-2022 Office outpatient vi sit 15 minutes Aneesh Tereso [facility] Start: 04-13-2022 (Procedure) Short Aneesh Rider [facility] Start: 04-13-2022 End: 04-13-2022 ambulatory Aneesh Tereso Other [facility] Other Start: 04-02-2022 End: 04-02-2022 ambulatory Aenesh Tereso Other [facility] Other Start: 04-02-2022 Office outpatient vi sit 25 minutes Aneesh Tereso [facility] [place] Start: 12-22-2021 End: 12-22-2021 ambulatory Aneesh Tereso Other [facility] Other Start: 12-22-2021 Office outpatient vi sit 15 minutes Aneesh Tereso [facility] Start: 11-19-2021 (Procedure) [place] Aneesh Rider [facility] Start: 11-19-2021 End: 11-19-2021 ambulatory Aneesh Tereso Other [facility] Other Start: 10-29-2021 (Procedure) [place] Aneesh Rider [facility] Start: 10-29-2021 End: 10-29-2021 ambulatory Aneesh Tereso Other [facility] Other Start: 09-30-2021 End: 09-30-2021 ambulatory Prema Cardona Other [facility] Other Start: 09-30-2021 Telephone encounter Prema Cardona [facility] Start: 09-29-2021 End: 09-29-2021 ambulatory Prema Cardona Other [facility] Other Start: 09-29-2021 Telephone encounter Premara Dominguezz [facility] Start: 09-24-2021 End: 09-24-2021 ambulatory Prema Brendan Other [facility] Other Start: 09-24-2021 Office outpatient vi sit 25 minutes Prema Brendan [facility] Start: 09-10-2021 (Procedure) Short Aneesh Rider [facility] Start: 08-25-2021 (Procedure) [place] Aneesh Rider [facility] Start: 08-18-2021 Telephone encounter Aneesh Rider [facility] Start: 08-14-2021 Office outpatient vi sit 25 minutes Aneesh Rider [facility] Procedures Date Procedure Procedure Detail Performing Clinician Start: 06-03-2025 C-reactive protein Chico Stewart NP Work Phone: Start: 06-03-2025 Complete blood count with white cell differential, automated Maximus Stewart NP Work Phone: Start: 06-03-2025 Sedimentation rate r bc automated Maximus Stewart [employer] Work Phone: Start: 04-01-2025 Radiologic examinati on knee 1/2 views Maximus Stewart [employer] Work Phone: Start: 03-27-2025 Colonoscopy Maximus johnson [employer] Work Phone: Start: 09-26-2024 Mammography Cyndi small [employer] Work Phone: Start: 12-26-2023 Radiologic examinati on knee 1/2 views Maximus Stewart [employer] Work Phone: Start: 07-21-2023 Mammography Maximus johnson NP Work Phone: Start: 06-29-2023 End: 02-28-2025 H/O: hysterectomy H/O: hysterectomy Maximus Stewart NP Work Phone: Screening for malign ant neoplasm of breast Vadim Cornejo Other Plan of Treatment Date Care Activity Detail Author Start: 03-27-2035 Screening for malignant neoplasm of colon [facility] Start: 09-26-2025 Screening for malignant neoplasm of breast Mammogram [facility] Start: 09-02-2025 End: 09-02-2025 Patient encounter procedure 09/02/2025 8:40 AM EDT Office Visit [facility] [address] [place] [address] Dian Soriano, NABOR [address] [place] [address] [facility] Start: 07-31-2025 End: 05-30-2026 Thyrotropin [Units/volume] in Serum or Plasma TSH Lab Routine Adult hypothyroidism Expected: 07/31/2025 (Approximate), Expires: 05/30/2026 [facility] Work Phone: Comment on above: Expected: 07/31/2025 (Approximate), Expi res: 05/30/2026 Start: 07-31-2025 End: 05-30-2026 Thyroxine (T4) free [Mass/volume] in Serum or Plasma T4, free Lab Routine Adult hypothyroidism Expected: 07/31/2025 (Approximate), Expires: 05/30/2026 [facility] Comment on above: Expected: 07/31/2025 (Approximate), Expi res: 05/30/2026 Start: 07-30-2025 End: 07-30-2025 Patient encounter procedure 07/30/2025 8:30 AM EDT Office Visit [facility] [address] [place] [id number] Jr. Glenn Quesada, DO [address] [address] [facility] Start: 07-15-2025 Influenza vaccination [facility] Start: 06-18-2025 End: 06-18-[address] [facility] Comment on above: Arrived Start: 06-03-2025 End: 06-03-2025 Patient encounter procedure 06/03/2025 10:15 AM EDT [address] [facility] [address] [facility] [place] [address] Maximus Stewart NP [address] [place], [place] [id number] Arrived [facility] Comment on above: Arrived Start: 05-30-2025 End: 05-30-2025 Patient encounter procedure [facility] Comment on above: Primary hypertension (Primary Dx); Adult hypothyroidism ; Severe anxiety with panic Start: 05-20-2025 End: 03-20-2026 Thyrotropin [Units/volume] in Serum or Plasma TSH Lab Routine Adult hypothyroidism (CMS/HCC) Expected: 05/20/2025 (Approximate), Expires: 03/20/2026 [facility] Work Phone: Comment on above: Expected: 05/20/2025 (Approximate), Expi res: 03/20/2026 Start: 05-20-2025 End: 03-20-2026 Thyroxine (T4) free [Mass/volume] in Serum or Plasma T4, free Lab Routine Adult hypothyroidism (CMS/HCC) Expected: 05/20/2025 (Approximate), Expires: 03/20/2026 [facility] Comment on above: Expected: 05/20/2025 (Approximate), Expi res: 03/20/2026 Start: 05-02-2025 End: 05-02-2025 Patient encounter procedure 05/02/2025 8:15 AM EDT Office Visit [facility] [address] [facility] [place] [address] Maximus Stewart NP [address] [place], [place] [id number] [facility] Start: 04-01-2025 End: 04-01-2026 C reactive protein [Mass/volume] in Serum or Plasma C-reactive protein Lab Routine Acute pain of left knee Expected: 04/01/2025 (Approximate), Expires: 04/01/2026 [facility] Comment on above: Expected: 04/01/2025 (Approximate), Expi res: 04/01/2026 Start: 04-01-2025 End: 04-01-2026 CBC W Auto Differential panel - Blood CBC and differential Lab Routine Acute pain of left knee Expected: 04/01/2025 (Approximate), Expires: 04/01/2026 [facility] Comment on above: Expected: 04/01/2025 (Approximate), Expi res: 04/01/2026 Start: 04-01-2025 End: 04-01-2026 Erythrocyte sedimentation rate Sedimentation rate, automated Lab Routine Acute pain of left knee Expected: 04/01/2025 (Approximate), Expires: 04/01/2026 [facility] Comment on above: Expected: 04/01/2025 (Approximate), Expi res: 04/01/2026 Start: 04-01-2025 End: 04-01-2026 NM Bone Limited Views NM bone limited Imaging Routine Acute pain of left knee Expected: 04/01/2025, Expires: 04/01/2026 [facility] Work Phone: Comment on above: Expected: 04/01/2025, Expires: Start: 04-01-2025 End: 04-01-2025 Patient encounter procedure 04/01/2025 8:00 AM EDT Office Visit [facility] [address] [place] [address] Maximus Stewart, DAIRY HUSBANDMAN [address] [place], [place] [id number] Arrived [facility] Comment on above: Arrived Start: 02-28-2025 End: 02-28-2026 Thyrotropin [Units/volume] in Serum or Plasma TSH Lab Routine Adult hypothyroidism (CMS/HCC) Expected: 02/28/2025 (Approximate), Expires: 02/28/2026 [facility] Work Phone: Comment on above: Expected: 02/28/2025 (Approximate), Expi res: 02/28/2026 Start: 02-28-2025 End: 02-28-2026 Thyroxine (T4) free [Mass/volume] in Serum or Plasma T4, free Lab Routine Adult hypothyroidism (CMS/HCC) Expected: 02/28/2025 (Approximate), Expires: 02/28/2026 [facility] Comment on above: Expected: 02/28/2025 (Approximate), Expi res: 02/28/2026 Start: 02-28-2025 End: 02-28-2026 Triiodothyronine (T3) Free [Mass/volume] in Serum or Plasma T3, free Lab Routine Adult hypothyroidism (CMS/HCC) Expected: 02/28/2025 (Approximate), Expires: 02/28/2026 [facility] Comment on above: Expected: 02/28/2025 (Approximate), Expi res: 02/28/2026 Start: 02-28-2025 End: 02-28-2025 Patient encounter procedure [facility] Comment on above: Primary hypertension (CMS/HCC) (Primary Dx); Gastroesophageal reflux disease, unspecified whether esophagitis present; Osteopenia, unspecified location; Severe anxiety with panic (CMS/HCC); Adult hypothyroidism (CMS/HCC); Irritable bowel syndrome with both constipation and diarrhea; Colon cancer screening Start: 01-10-2025 End: 11-29-2025 TSH W/REFLEX TO FT4 TSH W/REFLEX TO FT4 Lab Routine TSH elevation Expected: 01/10/2025 (Approximate), Expires: 11/29/2025 [facility] Work Phone: Comment on above: Expected: 01/10/2025 (Approximate), Expi res: 11/29/2025 Start: 12-03-2024 End: 12-03-2024 Patient encounter procedure 12/03/2024 9:00 AM EST Office Visit [facility] [address] [place] [address] Cyndi Piper NP [address] [place] [address] [facility] Start: 11-19-2024 Screening for malignant neoplasm of colon Colorectal Cancer Screening [facility] Comment on above: Postponed from 1962 (Other Patient Reasons) Start: 10-04-2024 End: 08-20-2025 TSH W/REFLEX TO FT4 TSH W/REFLEX TO FT4 Lab Routine TSH elevation Expected: 10/04/2024 (Approximate), Expires: 08/20/2025 [facility] Work Phone: Comment on above: Expected: 10/04/2024 (Approximate), Expi res: 08/20/2025 Start: 08-06-2024 End: 08-06-2025 CBC W Auto Differential panel - Blood CBC and differential Lab Routine Wellness examination Primary hypertension (CMS/HCC) Expected: 08/06/2024 (Approximate), Expires: 08/06/2025 [facility] Comment on above: Expected: 08/06/2024 (Approximate), Expi res: 08/06/2025 Start: 08-06-2024 End: 08-06-2025 Comprehensive metabolic 2000 panel - Serum or Plasma Comprehensive metabolic panel Lab Routine Wellness examination Primary hypertension (CMS/HCC) Expected: 08/06/2024 (Approximate), Expires: 08/06/2025 [facility] Comment on above: Expected: 08/06/2024 (Approximate), Expi res: 08/06/2025 Start: 08-06-2024 End: 08-06-2025 Hemoglobin A1c/Hemoglobin.total in Blood Hemoglobin A1c Lab Routine Wellness examination Expected: 08/06/2024 (Approximate), Expires: 08/06/2025 [facility] Comment on above: Expected: 08/06/2024 (Approximate), Expi res: 08/06/2025 Start: 08-06-2024 End: 08-06-2025 Lipid 1996 panel - Serum or Plasma Lipid panel Lab Routine Wellness examination Expected: 08/06/2024 (Approximate), Expires: 08/06/2025 [facility] Comment on above: Expected: 08/06/2024 (Approximate), Expi res: 08/06/2025 Start: 08-06-2024 End: 08-06-2025 TSH W/REFLEX TO FT4 TSH W/REFLEX TO FT4 Lab Routine Wellness examination Primary hypertension (CMS/HCC) Expected: 08/06/2024 (Approximate), Expires: 08/06/2025 [facility] Work Phone: Comment on above: Expected: 08/06/2024 (Approximate), Expi res: 08/06/2025 Start: 08-06-2024 End: 08-06-2024 Patient encounter procedure 08/06/2024 10:00 AM EDT Office Visit [facility] [address] [place] [phone] Cyndi Piper, NABOR [address] [place] [address] Arrived [facility] Comment on above: Arrived Start: 07-21-2024 Screening for malignant neoplasm of breast Mammogram [facility] Start: 07-15-2024 Influenza vaccination Influenza Vaccine (#1) [facility] Start: 07-04-2024 End: 07-04-2024 Patient encounter procedure 07/04/2024 10:00 AM EDT Office [address] [facility] [address] [facility] [place] [phone] Maximus Stewart, NABOR [address] [place] [address] [facility] Start: 12-26-2023 End: 12-26-2023 Patient encounter procedure 12/26/2023 9:15 AM EST [facility] [address] [facility] [place] [phone] Maximus Stewart NP [address] [place] [address] Primary osteoarthritis of left knee; Status post left knee replacement [facility] Comment on above: Primary osteoarthritis of left knee; Status post left knee replacement Start: 03-03-2023 [facility] Start: 11-25-2022 Screening for malignant neoplasm of cervix [facility] Start: 1983 Screening for malignant neoplasm of cervix Pap Smear [facility] Start: 1962 Screening for malignant neoplasm of colon [facility] Atopobium vaginae DN A [Presence] in Vaginal fluid by LARRY with probe detection [facility] Bacterial vaginosis associated bacterium 2 DNA [Presence] in Vaginal fluid by LARRY with probe detection [facility] Megasphaera sp type 1 DNA [Presence] in Vaginal fluid by LARRY with probe detection [facility] Immunizations Immunization Date Immunization Notes Care Provider Richa rios 11-10-2023 influenza, injectable, quadrivalent, preservative free Dian Evelynjenyalexis DAIRY HUSBANDMAN Work Phone: [facility] 11-10-2023 influenza virus vaccine, unspecified formulation Cyndi Piper DAIRY HUSBANDMAN Work Phone: [facility] 09-27-2021 influenza, injectable, quadrivalent, preservative free Maximus Stewart DAIRY HUSBANDMAN Work Phone: [facility] 08-27-2020 influenza, injectable, quadrivalent, contains preservative Maximus Stewart DAIRY HUSBANDMAN Work Phone: [facility] 11-21-2019 seasonal influenza, intradermal, preservative free Maximus Stewart DAIRY HUSBANDMAN Work Phone: [facility] 09-14-2018 seasonal influenza, intradermal, preservative free Maximus Stewart DAIRY HUSBANDMAN Work Phone: [facility] 08-05-2017 Kenalog -40 mg Aneesh Rider Other [employer] Other 11-23-2012 influenza, injectable, quadrivalent, preservative free Maximus Stewart DAIRY HUSBANDMAN Work Phone: [facility] Payers Date Payer Category Payer Private Health [facility] [id number] 2023 Unknown [employer] [facility] [employer] [id number] 2023-Present [address] [address] [place] [address] [id number] 2023 Medicaid [id number] [id number] 2023 Self-pay [id number] 1962 Unknown [id number] 2.16.840.1.099504.3.579. 2.593 1962 Unknown [id number] 2.16.840.1.302758.3.579. 2.593 1962 Unknown [id number] 2.16.840.1.287916.3.579. 2.593 1962 Unknown [id number] 2.16.840.1.771180.3.579. 2.593 1962 Unknown [id number] 2.16.840.1.780698.3.579. 2.593 1962 Unknown [id number] 2.16.840.1.821993.3.579. 2.593 1962 Unknown [id number] 2.16.840.1.671005.3.579. 2.593 1962 Unknown [id number] 2.16.840.1.546573.3.579. 2.593 1962 Unknown [id number] 2.16.840.1.472702.3.579. 2.593 1962 Unknown [id number] 2.16.840.1.762890.3.579. 2.593 1962 Unknown [id number] 2.16.840.1.501964.3.579. 2.727 1962 Unknown [id number] 2.16.840.1.390750.3.579. 2.727 1962 Unknown [id number] 2.16.840.1.223628.3.579. 2.727 1962 Unknown [id number] 2.16.840.1.670756.3.579. 2.1259 1962 Unknown [id number] 2.16.840.1.528876.3.579. 2.1259 1962 Unknown [id number] 2.16.840.1.682065.3.579. 2.1259 1962 Unknown [id number] 2.16.840.1.778356.3.579. 2.1259 1962 Unknown [id number] 2.16.840.1.047325.3.579. 2.1259 1962 Unknown [id number] 2.16.840.1.067535.3.579. 2.1259 1962 Unknown [id number] 2.16.840.1.022951.3.579. 2.1259 1962 Unknown [id number] 2.16.840.1.416022.3.579. 2.1259 1962 Unknown [id number] 2.16.840.1.837188.3.579. 2.1259 1959 [facility] [id number] 2.16.840.1.730107.19 Unknown [id number] 2.16.840.1.245749.3.579. 2.531 Social History Date Type Detail Facility Unknown if ever smoked [facility] Other Start: 06-29-2023 End: 07-30-2024 Sex Assigned At [facility] Start: 05-01-2020 End: 08-06-2024 Tobacco smoking status NCIS Ex-smoker (finding) [facility] Start: 1960 Sex Assigned At Female [facility] End: 11-14-1995 History of tobacco use Current smoker [facility] End: 11-14-1995 History of tobacco use Cigarette Smoker [facility] Start: 06-29-2023 End: 08-06-2024 Tobacco use and exposure Smokeless tobacco non-user [facility] Start: 06-29-2023 End: 05-30-2025 Alcohol intake Current drinker of alcohol (finding) [...] minimally invasive Orthopaedic bone screw, non-bioabsorbable, sterile ()[id number] FDA Start: 05-01-2020 Arthroplasty, knee, total, minimally invasive Uncoated knee femur prosthesis ()[id number] FDA Start: 05-01-2020 Arthroplasty, knee, total, minimally invasive Tibial insert ()[id number] FDA Start: 05-01-2020 Arthroplasty, knee, total, minimally invasive Uncoated knee tibia prosthesis, metallic ()[id number] FDA Start: 05-01-2020 Arthroplasty, knee, total, minimally invasive Polyethylene patella prosthesis ()[id number] FDA Start: 05-01-2020 Clinical Notes 08-14-2021 to 06-03-2025 Maximus Stewart, DAIRY HUSBANDMAN - 06/03/2025 10:15 AM Violet Soriano, DAIRY HUSBANDMAN - 05/30/2025 9:00 AM Violet Soriano, DAIRY HUSBANDMAN - 05/30/2025 6:21 AM EDElham Soriano, DAIRY HUSBANDMAN - 05/30/2025 6:20 AM EDTPatient Instructions Note Date & Type Note Facility 06-03-2025 History of Present illness Narrative Images from the original note were not included. HISTORY OF PRESENT ILLNESS: EST PT Rachele Flores is an 64 y.o. @ female. (EST PT) - RECHECK (L) KNEE S/P NM BONE SCAN 05/10 @ [facility] S/P (L) TKA 05/01/2020 (5 YRS, 1 MTH) XRAY (L) KNEE 04/01/25 EPIC XRAY CHANGE 12/26/23 XRAY CHANGE 06/29/23 XRAY EXA 06/29/21 XRAYS 05/14/20 IN EXA ; POST-OP NM BONE SCAN 05/10/25 @ [facility] S/P PHYSICAL THERAPY MDP 12/26/23, ~03/11/25 NO PAIN MGMT PAIN IS STILL INTERMITTENT IN KNEE. PAIN DIFFUSE IN KNEE. +TYL PRN. OCCAS TAKES ADVIL OR ALEVE. +ICE AND HEAT. DENIES N/T. +INTERMITTENT SWELLING. DENIES GIVING OUT. STATES SHE DID BACK OFF ON HER EXERCISE BIKE FROM 80 MINUTES DAILY TO 60 MINUTES. ALLERGIES: Allergies Allergen Reactions Ciprofloxacin Shortness of [...] mg, Oral, Daily busPIRone (BUSPAR) 15 mg, Oral, Daily cyclobenzaprine (Flexeril) 10 MG tablet TAKE 4 TABLETS BY MOUTH AT BEDTIME estradiol (ESTRACE) 2 mg, Oral, Daily, Take 1 tablet by mouth for 30 days furosemide (LASIX) 40 mg, Oral, Daily levothyroxine (SYNTHROID, LEVOXYL) 88 mcg, Oral, Daily metoclopramide (REGLAN) 5 mg, Oral, 4 times daily omeprazole (PRILOSEC) 40 mg, 2 times daily polyethylene glycol, PEG, 3350 (MiraLax) 17 g packet Every 24 hours traMADol (Ultram) 50 MG tablet PHYSICAL EXAM: Left Knee Exam Tenderness The patient is experiencing no tenderness. Range of Motion Extension: 0 Flexion: 120 Tests Varus: negative Valgus: negative Drawer: Anterior - negative Other Erythema: absent Scars: present Sensation: normal Pulse: present Swelling: none Vitals: There is no height or weight on file to calculate BMI. Tobacco Use: Medium Risk (05/30/2025) Patient History Smoking Tobacco Use: Former Smokeless Tobacco Use: Never Passive Exposure: Past Alcohol Use: Not At Risk (07/30/2024) AUDIT-C Frequency of Alcohol Consumption: 2-4 times a month Average Number of Drinks: 1 or 2 Frequency of Binge Drinking: Never IMAGIN04/01/2025: Standing AP and LAT of left knee [...] knee replacement. Maximus Stewart APRN, NP-C Procedures No orders of the defined types were placed in this encounter. ASSESSMENT: ICD-10-CM 1. Status post left knee replacement Z96.652 2. Acute pain of left knee M25.562 PLAN: I reviewed bone scan findings with the patient which showed possible hardware loosening and recommended plain films be completed. I again reviewed plain films with patient which showed no signs of loosening. I recommend she have her CRP, SED rate and CBC collected and follow up with Dr. Quesada for further evaluation. She had no pain on today's exam and has noticed improvement in her knee since backing off exercising on her bike 80 minutes a day down to 60. I recommend she have labs collected and hold off on any biking at this time. I will call patient once results are received. Questions answered in laymen terms at the bedside. The diagnosis, home exercise plan and any ongoing restrictions/ recommendations reviewed. If unable to be reached in office, I recommend evaluation at nearest Emergency Room if any symptoms worsened or new symptoms develop for requiring urgent evaluation. documented in this encounter [facility] 05-30-2025 History of Present illness Narrative Images from the original note were not included. Rachele Flores is a 64 y.o. female presents with chief complaint of Follow-up HPI: Anxiety: does well with xanax and buspar, no med dose changes No side effects for blood pressure Thyroid Problem Presents for follow-up visit. Symptoms include anxiety, fatigue and hoarse voice (occ, but more when around cats). Patient reports no constipation, depressed mood, diarrhea, palpitations, tremors, weight gain or weight loss. The symptoms have been stable. SUBJECTIVE: MEDICATIONS: Current Outpatient Medications Medication Instructions alendronate (FOSAMAX) 70 mg, Oral, Every 7 days, Take in the morning with a full glass of water, on an empty stomach, and do not take anything else by mouth or lie down for the next 30 min. ALPRAZolam (XANAX) 0.25 mg, Oral, Nightly PRN atenolol (TENORMIN) 50 mg, Oral, Daily busPIRone (BUSPAR) 15 mg, Oral, Daily cyclobenzaprine (Flexeril) 10 MG tablet TAKE 4 TABLETS BY MOUTH AT BEDTIME estradiol (ESTRACE) 2 mg, Oral, Daily, Take 1 tablet by mouth for 30 days furosemide (LASIX) 40 mg, Oral, Daily levothyroxine (SYNTHROID, LEVOXYL) 88 mcg, Oral, Daily metoclopramide (REGLAN) 5 mg, Oral, 4 times [...] SYMPTOMS: Review of Systems Constitutional: Positive for fatigue. Negative for appetite change, chills, fever, weight gain and weight loss. HENT: Positive for hoarse voice (occ, but more when around cats). Negative for congestion, ear pain and sore throat. Eyes: Negative for pain, discharge, redness and visual disturbance. Respiratory: Negative for cough, shortness of breath and wheezing. Cardiovascular: Negative for chest pain, palpitations and leg swelling. Gastrointestinal: Negative for abdominal pain, blood in stool, constipation, diarrhea, nausea and vomiting. Genitourinary: Negative for difficulty urinating, dysuria and frequency. Musculoskeletal: Negative for arthralgias, back pain, joint swelling and myalgias. Skin: Negative for rash and wound. Neurological: Negative for dizziness, tremors, seizures, syncope and headaches. Psychiatric/Behavioral: Negative for behavioral problems, self-injury and suicidal ideas. The patient is nervous/anxious. Hematological: Does not bruise/bleed easily. Endocrine: Negative for polydipsia, polyphagia and polyuria. Allergic/Immunologic: Negative for environmental allergies and food allergies. PAST MEDICAL HISTORY Past Medical History: Diagnosis Date Abnormal electrocardiogram (ECG) (EKG) Acute cystitis with hematuria Allergic rhinitis Anxiety disorder Atopic dermatitis Bariatric surgery status Bursitis of hip Cataract Depression Dysuria Elevated blood pressure reading Episodic paroxysmal anxiety disorder Essential (primary) hypertension External hemorrhoid Eyelid eczema Female stress incontinence [...] LASER ABLATION Right 04/2020 occipital cervical ablation- [facility] TOTAL KNEE ARTHROPLASTY Left 05/01/2020 Dr Quesada [...] brother and sister. OBJECTIVE: Visit Vitals BP 116/80 (BP Location: Left arm, Patient Position: Sitting, BP Cuff Size: Adult long) Pulse 93 Temp 98.5 F (Temporal) Resp 20 Wt 160 lb SpO2 98% BMI 29.26 kg/m OB Status Hysterectomy Smoking Status Former BSA 1.78 m Physical Exam Vitals and nursing note reviewed. Constitutional: General: She is not in acute distress. Appearance: Normal appearance. HENT: Head: Normocephalic and atraumatic. Right Ear: External ear normal. Left Ear: External ear normal. Nose: Nose normal. Mouth/Throat: Mouth: Mucous membranes are moist. Eyes: Extraocular Movements: Extraocular movements intact. Conjunctiva/sclera: Conjunctivae normal. Cardiovascular: Rate and Rhythm: Normal rate and regular rhythm. Pulses: Normal pulses. Heart sounds: Normal heart sounds. Pulmonary: Effort: Pulmonary effort is normal. Breath sounds: Normal breath sounds. Abdominal: General: Bowel sounds are normal. There is no distension. Palpations: Abdomen is soft. There is no mass. Tenderness: There is no abdominal tenderness. Musculoskeletal: General: Normal range of motion. Cervical back: Normal range of motion and neck supple. No tenderness. Right lower leg: No edema. Left lower leg: No edema. Lymphadenopathy: Cervical: No cervical adenopathy. Skin: General: [...] Follow up in about 3 months (around 08/30/2025) for Recheck. Problem List Items Addressed This Visit Generalized anxiety disorder Relevant Medications ALPRAZolam (Xanax) 0.25 MG tablet Severe anxiety with panic Current meds: xanax, buspar, Med Agreement: 02/28/25 Has trialed several SSRI, SNRI, and sensative to side effects OARRS reviewed Relevant Medications busPIRone (Buspar) 15 MG tablet Primary hypertension - Primary Please check blood pressure daily and record DASH diet Limit caffeine Take medication as directed Contact office if chest pain, pressure, dizziness, shortness of breath, swelling legs Recommend slow position changes Current meds: b sarah Adult hypothyroidism Current medication: levothyroxine Check labs yearly and prn dose changes or changes in symptoms Had recent dose change of thyroid meds Fu labs no significant changes in levels, pt cannot tell big difference either Relevant Medications levothyroxine (Synthroid, Levoxyl) 88 MCG tablet Other Relevant Orders TSH T4, free Associated Problem(s): Severe anxiety with panic Current meds: xanax, buspar, Med Agreement: 02/28/25 Has trialed several SSRI, SNRI, and sensative to side effects OARRS reviewed Associated Problem(s): Adult hypothyroidism Current medication: levothyroxine Check labs yearly and prn dose changes or changes in symptoms Had recent dose change of thyroid meds Fu labs no significant changes in levels, pt cannot tell big difference either Associated Problem(s): Primary hypertension Please check blood pressure daily and record DASH diet Limit caffeine Take medication as directed Contact office if chest pain, pressure, dizziness, shortness of breath, swelling legs Recommend slow position changes Current meds: b sarah documented in this encounter [facility] 05-30-2025 Instructions Dian Soriano NP - 05/30/2025 9:00 AM EDT Increase dose of thyroid med to 88mcg daily Check labs in mid july documented in this encounter [facility] 04-11-2025 Telephone encounter Note Patient left vm that she has not heard from [facility] to have her testing done. Please advise. [facility] 04-11-2025 Miscellaneous Notes Patient left vm that she has not heard from [facility] to have her testing done. Please advise. documented in this encounter [facility] 04-01-2025 History of Present illness [...] LT total knee replacement. Maximus Stewart APRN, DAIRY HUSBANDMAN-C Procedures Orders Placed This Encounter Procedures XR knee 1 or 2 views left Views: AP Views: Lateral Reason for exam:: PAIN NM bone limited Standing Status: Future Number of Occurrences: 1 Expected Date: 04/01/2025 Expiration Date: 04/01/2026 Scheduling Instructions: BONE SCAN 3 PHASE LIMITED @ [facility]; PLEASE CALL PT TO SCHEDULE Reason for [...] develop for requiring urgent evaluation. Maximus Stewart APRN, NP-C documented in this encounter [facility] 03-12-2025 Note General Surgery Offi [...] Never., 03/07/2025 Tobacc (more content not included)... [facility] Comment on above: Result Comment: Elec tronically [...] LT foot/ Cjhloroghty BARIATRIC SURGERY 1999 CHOLECYSTECTOMY 1991 COLPOSCOPY biopsy cervix - EXCISIONAL HEMORRHOIDECTOMY 10/2015 excision thrombosed hemorrhoid EXCISIONAL HEMORRHOIDECTOMY 10/16/2015 thrombosed hemorrhoid LT lateral - [place] GASTRIC BYPASS [place] - Y procedure, HYSTERECTOMY 1999 LASER ABLATION Right 04/2020 occipital cervical ablation- [facility] TOTAL KNEE ARTHROPLASTY Left 05/01/2020 Dr Quesada [...] Current meds: fosamax Condition is managed by [facility] 03/19/24: -2.2 Irritable bowel syndrome with both [...] Current meds: fosamax Condition is managed by [facility] 03/19/24: -2.2 Associated Problem(s): GERD (gastroesophageal [...] meds: b sarah documented in this encounter [facility] 02-28-2025 Instructions Dian Soriano NP - 02/28/2025 9:00 AM EDT Lab slip Colonoscopy: dr Lebron's office should call, if no call in 2 weeks call me back documented in this encounter [facility] 11-29-2024 History of Present illness [...] in 6 weeks. documented in this encounter [facility] 08-07-2024 History of Present illness [...] CBC and differential documented in this encounter [facility] 08-06-2024 Instructions Cyndi Piper NP [...] day. Consider tracking your food intake on My[employer]Pal or LoseIt Water: Increase water intake; GOAL [...] sleep per night. documented in this encounter [facility] 12-26-2023 History of Present illness [...] develop for requiring urgent evaluation. 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 Discussed options, new insurance pending. If too expensive could increast HRT dose. Will monitor results. [facility] Other 12-11-2023 Evaluation note* Encounter Date Diagnosis Assessment Notes Treatment Notes Treatment Clinical Notes Oct, Hot flash, menopausal (ICD-10 - N95.1) [facility] 04-20-2023 Evaluation note* Encounter Date Diagnosis Assessment Notes Treatment Notes Treatment Clinical Notes Feb, Vaginal discharge (ICD-10 - N89.8) culture pending - possible BV. would hold on further yeast treatment until culture result is back. Feb, Dysuria (ICD-10 - R30.0) UA normal. vaginal culture pending [facility] 03-30-2023 NotePROCEDURE: XR FOOT LT MIN [...] Electronically authenticated by: CARLITOS VANEGAS Date: 2023-02-10 08:06[facility]02-01-2023 NotePROCEDURE: XR FOOT LT MIN 3 [...] Electronically authenticated by: LOC DELACRUZ Date: 2022-12-15 16:49[facility]12-13-2022 NotePROCEDURE: XR FOOT LT MIN 3 [...] Electronically authenticated by: LOC DELACRUZ Date: 2022-10-26 15:47[facility]11-23-2022 NotePROCEDURE: XR FOOT LT MIN 3 [...] Electronically authenticated by: LOC DELACRUZ Date: 2022-10-06 10:54[facility]11-23-2022 NotePROCEDURE: XR FOOT LT 2V HISTORY: [...] Electronically authenticated by: LOC DELACRUZ Date: 2022-10-06 10:52[facility]2022 NotePROCEDURE: Axial 3 mm. slice thickness images [...] and signed by Chad Montgomery on 09/21/2022 [id number] [id number] NotePROCEDURE: XR FOOT LT MIN 3 VIEWS [...] Electronically authenticated by: CARLITOS VANEGAS Date: 2022-09-15 18:38[facility]07-14-2022 Evaluation note* Encounter Date Diagnosis Assessment Notes [...] is encouraged to follow up as needed. [facility] Other 06-24-2022 Evaluation note* Encounter Date Diagnosis [...] is encouraged to follow up after procedure [facility] Other 06-07-2022 Evaluation note* Encounter Date Diagnosis [...] - G89.29) Continue with current treatment plan. [facility] Other 05-20-2022 Evaluation note* Encounter Date Diagnosis [...] pain relief and increased function following procedure [facility] Other 02-08-2022 Evaluation note* Encounter Date Diagnosis [...] call the office if her pain returns [facility] Other 11-11-2021 Evaluation note* Encounter Date Diagnosis [...] (ICD-10 - G89.29) Continue medications as prescribed [facility] Other 10-01-2021 Evaluation note* Encounter Date Diagnosis [...] (ICD-10 - G89.29) Follow up after procedure. [facility] Other Evaluation noteNo InformationNortFavim Other Evaluation noteNo assessment information available [facility] Work Phone: Evaluation note* Diagnosis Knee strain, left, initial encounter- [...] esophagitis present Osteopenia, unspecified location Adult hypothyroidism ([facility]) Unspecified hypothyroidism Irritable bowel syndrome with both constipation and diarrhea Colon cancer screening Special screening for malignant neoplasms, colon Osteoarthritis of left knee, unspecified osteoarthritis type Adult hypothyroidism ([facility])- Primary Unspecified hypothyroidism [facility] Diagnosis Encounter to establish care- Primary Wellness examination Primary hypertension ([facility]) Unspecified essential hypertension Generalized anxiety disorder ([facility]) Generalized anxiety disorder Fibromyalgia Unspecified myalgia and myositis Osteoarthritis involving multiple joints on both sides of body TSH elevation- Primary Generalized anxiety disorder ([facility]) Generalized anxiety disorder Primary hypertension ([facility]) Unspecified essential hypertension Severe anxiety with panic ([facility])- Primary Primary hypertension ([facility]) Unspecified essential hypertension Gastroesophageal reflux disease, unspecified whether esophagitis present Osteopenia, unspecified location Adult hypothyroidism ([facility]) Unspecified hypothyroidism Irritable bowel syndrome with both constipation and diarrhea Colon cancer screening Special screening for malignant neoplasms, colon Osteoarthritis of left knee, unspecified osteoarthritis type Acute pain of left knee- Primary Status post left knee replacement [facility] Diagnosis Encounter to establish care- Primary Wellness examination Primary hypertension ([facility]) Unspecified essential hypertension Generalized anxiety disorder ([facility]) Generalized anxiety disorder Fibromyalgia Unspecified myalgia and myositis Osteoarthritis involving multiple joints on both sides of body TSH elevation- Primary Generalized anxiety disorder ([facility]) Generalized anxiety disorder Primary hypertension ([facility]) Unspecified essential hypertension Severe anxiety with panic ([facility])- Primary Primary hypertension ([facility]) Unspecified essential hypertension Gastroesophageal reflux disease, unspecified whether esophagitis present Osteopenia, unspecified location Adult hypothyroidism ([facility]) Unspecified hypothyroidism Irritable bowel syndrome with both constipation and diarrhea Colon cancer screening Special screening for malignant neoplasms, colon Osteoarthritis of left knee, unspecified osteoarthritis type Generalized anxiety disorder ([facility]) Generalized anxiety disorder documented in this encounter [...] of left knee, unspecified osteoarthritis type Adult hypothyroidism- Primary Unspecified hypothyroidism Primary hypertension Unspecified essential hypertension Severe anxiety with panic Generalized anxiety disorder Generalized anxiety disorder documented in this encounter [...] of left knee, unspecified osteoarthritis type Adult hypothyroidism- Primary Unspecified hypothyroidism Primary hypertension Unspecified essential hypertension Severe anxiety with panic Generalized anxiety disorder Generalized anxiety disorder Status post left knee replacement- Primary Acute pain of left knee [facility] [...] of left knee, unspecified osteoarthritis type Adult hypothyroidism- Primary Unspecified hypothyroidism Primary hypertension Unspecified essential hypertension Severe anxiety with panic Generalized anxiety disorder Generalized anxiety disorder Generalized anxiety disorder Generalized anxiety disorder documented in this encounter [facility] - [facility]orted* Type Description Date Medical History Panic attacks Medical History high blood pressure Medical History Rheumatoid Arthritis Surgical History bariatric surgery Surgical History hysterectomy Surgical History gall bladder removal Surgical History total left knee replacement 6/ 020 Surgical History spur removed and bone fusion on the left 09/2020 Hospitalization History see above [facility] Other History general Narrative - Reported* Type Description Date Medical History Panic attacks Medical History high blood pressure Medical History Rheumatoid Arthritis Surgical History bariatric surgery Surgical History hysterectomy Surgical History gall bladder removal Surgical History total left knee replacement / 020 Surgical History spur removed and bone fusion on the left 09/2020 Surgical History eye lid bilateral 10/2022 Hospitalization History see above [facility] Other History general Narrative - Reported* Type [...] left foot 2021 Hospitalization History see above [facility] Other [employer] general Narrative - Reported* Type Description Date [...] left foot 2021 Hospitalization History see above [facility] Other Summary Purpose Family History Relationship Condition [...] section and content) DATE CREATED AUTHOR 01/11/2020 [facility] DATE CREATED AUTHOR AUTHOR'S ORGANIZ ATION 09/22/2022 [facility] Specialist DATE CREATED AUTHOR AUTHOR'S ORGANIZ ATION 02/21/2023 [facility] DATE CREATED AUTHOR AUTHOR'S ORGANIZ ATION 03/08/2023 [facility] DATE CREATED AUTHOR AUTHOR'S ORGANIZ ATION 04/10/2025 [facility] DATE CREATED AUTHOR AUTHOR'S ORGANIZ ATION 06/06/2025 [facility] DATE CREATED AUTHOR AUTHOR'S ORGANIZ ATION 06/20/2025 [facility] EPIC REASON FOR VISIT (unrecogniz [...] Reason Onset Date Comments Med Refill 04/28/2025 Reason Onset Date Comments Med Refill 06/20/2025 Care Teams (unrecognized sec tion and content) [...] 2024 Barrett Ying Attending Provider Active Start: 2023 Team Status: Inactive Member Role Status Dates Vadim Cornejo MD Primary Care Provide r, Attending Provider Active Start: March 19, 2024 End: March 19, 2024 Team Status: Inactive Member Role Status Dates Vadim Cornejo MD Primary Care Provider, Attending Chanel vargas Active Manager Investment Relationship Specialty Start Date End Date Vadim Cornejo MD [address] [facility] [place] [address] PCP - General Family Medicine 06/29/23 Manager Investment Relationship Specialty Start Date End Date Vadim Cornejo MD [address] [facility] [place] [phone] PCP - General Family Medicine 06/29/23 Manager Investment Relationship Specialty Start Date End Date Alejo Zavala MD [address] [place] [address] PCP - General Family Medicine 07/23/24 Cyndi Piper NP [address] [place] [address] Nurse Practitioner Family Medicine 07/23/24 Manager Investment Relationship Specialty Start Date End Date Alejo Zavala MD [address] [place] [phone] PCP - General Family Medicine 07/23/24 Cyndi Piper NP [address] [place] [address] Nurse Practitioner Family Medicine 07/23/24 Manager Investment Relationship Specialty Start Date End Date Alejo Zavala MD [address] [place] [phone] PCP - General Family Medicine 07/23/24 Cyndi Piper NP [address] [place] [address] Nurse Practitioner Family Medicine 07/23/24 Manager Investment Relationship Specialty Start Date End Date Alejo Zavala MD [address] [place] [phone] PCP - General Family Medicine 07/23/24 Cyndi Piper NP [address] [place] [address] Nurse Practitioner Family Medicine 07/23/24 Manager Investment Relationship Specialty Start Date End Date Alejo Zavala MD [address] [place] [phone] PCP - General Family Medicine 07/23/24 Cyndi Piper NP [address] [place] [address] Nurse Practitioner Family Medicine 07/23/24 Manager Investment Relationship Specialty Start Date End Date Alejo Zavala MD [address] [place] [phone] PCP - General Family Medicine 07/23/24 Cyndi Piper NP [address] [place] [address] Nurse Practitioner Family Medicine 07/23/24 Manager Investment Relationship Specialty Start Date End Date Alejo Zavala MD [address] [place] [address] PCP - General Family Medicine 07/23/24 Cyndi Piper NP [address] [place] [address] Nurse Practitioner Family Medicine 07/23/24 Manager Investment Relationship Specialty Start Date End Date Alejo Zavaal MD [address] [place] [address] PCP - General Family Medicine 07/23/24 Cyndi Piper, N[employer] [address] [place] [address] Nurse Practitioner Family Medicine 07/23/24 Barrett Ying DO [address] [place] [address] [place] [address] Referring Physician Obstetrics and Gynecology 11/20/24 Manager Investment Relationship Specialty Start Date End Date Alejo Zavala MD [address] [place] [phone] PCP - General Family Medicine 07/23/24 Cyndi Piper, DAIRY HUSBANDMAN [address] [place] [address] Nurse Practitioner Family Medicine 07/23/24 Barrett Ying, [facility] [place] [address] Referring Physician Obstetrics and Gynecology 11/20/24 Manager Investment Relationship Specialty Start Date End Date Alejo Zavala MD [address] [place] [phone] PCP - General Family Medicine 07/23/24 Cyndi Piper, NABOR [address] [place] [address] Nurse Practitioner Family Medicine 07/23/24 Barrett Ying DO [address] [place] [address] Referring Physician Obstetrics and Gynecology 11/20/24 Manager Investment Relationship Specialty Start Date End Date Alejo Zavala MD [address] [place] [address] PCP - General Family Medicine 07/23/24 Cyndi Piper, NABOR [address] [place] [address] Nurse Practitioner Family Medicine 07/23/24 Barrett Ying, [address] [place] [address] Referring Physician Obstetrics and Gynecology 11/20/24 Manager Investment Relationship Specialty Start Date End Date Alejo Zavala MD [address] [place] [address] PCP - General Family Medicine 07/23/24 Cyndi Piper, NABOR [address] [place] [address] Nurse Practitioner Family Medicine 07/23/24 Barrett Ying, [address] [place] [address] Referring Physician Obstetrics and Gynecology 11/20/24 Manager Investment Relationship Specialty Start Date End Date Alejo Zavala MD [address] [place] [address] PCP - General Family Medicine 07/23/24 Cyndi Piper NP [address] [place] [address] Nurse Practitioner Family Medicine 07/23/24 Barrett Ying, [address] [place], [facility] Referring Physician Obstetrics and Gynecology 11/20/24 Manager Investment Relationship Specialty Start Date End Date Alejo Zavala MD [address] [place] [address] PCP - General Family Medicine 07/23/24 Cyndi Piper, NABOR [address] [place] [address] Nurse Practitioner Family Medicine 07/23/24 Barrett Ying, [facility] [place], [facility] Referring Physician Obstetrics and Gynecology 11/20/24 Manager Investment Relationship Specialty Start Date End Date Alejo Zavala MD [address] [place] [address] PCP - General Family Medicine 07/23/24 Cyndi Piper NP [address] [place] [address] Nurse Practitioner Family Medicine 07/23/24 Barrett Ying DO [address] [place] [address] Referring Physician Obstetrics and Gynecology 11/20/24 Manager Investment Relationship Specialty Start Date End Date Alejo Zavala MD [address] [place] [address] PCP - General Family Medicine 07/23/24 Cyndi Piper, NABOR [address] [place] [address] Nurse Practitioner Family Medicine 07/23/24 Barrett Ying, [facility] [place], [facility] Referring Physician Obstetrics and Gynecology 11/20/24 Manager Investment Relationship Specialty Start Date End Date Alejo Zavala MD [address] [place] [address] PCP - General Family Medicine 07/23/24 Cyndi Piper NP [address] [place] [address] Nurse Practitioner Family Medicine 07/23/24 Barrett Ying, [facility] [place], [facility] Referring Physician Obstetrics and Gynecology 11/20/24 Manager Investment Relationship Specialty Start Date End Date Alejo Zavala MD [address] [place] [phone] PCP - General Family Medicine 07/23/24 Cyndi Piper NP [address] [place] [address] Nurse Practitioner Family Medicine 07/23/24 Barrett Ying, DO [address] [place] [address] Referring Physician Obstetrics and Gynecology 11/20/24 Manager Investment Relationship Specialty Start Date End Date Alejo Zavala MD [address] [place] [address] PCP - General Family Medicine 07/23/24 Cyndi Piper, DAIRY HUSBANDMAN [address] [place] [address] Nurse Practitioner Family Medicine 07/23/24 Barrett Ying, DO [facility] [place] [address] Referring Physician Obstetrics and Gynecology 11/20/24 Manager Investment Relationship Specialty Start Date End Date Alejo Zavala MD [address] [place] [address] PCP - General Family Medicine 07/23/24 Cyndi Piper, DAIRY HUSBANDMAN [address] [place] [address] Nurse Practitioner Family Medicine 07/23/24 Barrett Ying, DO [address] [place] [address] Referring Physician Obstetrics and Gynecology 11/20/24 Manager Investment Relationship Specialty Start Date End Date Alejo Zavala MD [address] [place] [phone] PCP - General Family Medicine 07/23/24 Cyndi Piper NP [address] [place] [address] Nurse Practitioner Family Medicine 07/23/24 Barrett Ying DO [address] [place] [address] [place] [address] Referring Physician Obstetrics and Gynecology 11/20/24 Manager Investment Relationship Specialty Start Date End Date Alejo Zavala MD [address] [place] [phone] PCP - General Family Medicine 07/23/24 Cyndi Piper NP [address] [place] [address] Nurse Practitioner Family Medicine 07/23/24 Barrett Ying DO [address] [place] [address] [place] [address] Referring Physician Obstetrics and Gynecology 11/20/24 Goals [...] BE BASED ON THE PRIMARY CLINICAL RECORDS. [employer] provides no warranty or guarantee of the accuracy or completeness of information in this document.
[2025-07-24 09:48] LABS: Alanine Aminotransferase 20 U/L (14-59); Albumin Globulin Ratio 0.8; Albumin Level 3.1 g/dL (3.4-5.0); Alkaline Phosphatase 117 U/L (46-116); Anion Gap 11.9; Aspartate Amino Transferase 15 U/L (15-37); Blood Urea Nitrogen 20.0 mg/dL (7.0-18.0); Calcium 8.7 mg/dL (8.5-10.1); Carbon Dioxide 27.0 mmol/L (21.0-32.0); Chloride 105 mmol/L (98-107); Cholesterol 186 mg/dL (<=200); Estimated GFR (African America >60 (>=60 mL/min/1.73m^2); Estimated GFR (Non-African Ame >60 (>=60 mL/min/1.73m^2); Globulin 4.0 g/dL; Glucose 99 mg/dL (74-106); HDL Cholesterol 85 mg/dL (40-60); Potassium 3.9 mmol/L (3.5-5.1); Sodium 140 mmol/L (136-145); TSH W/ REFLEX FT4 2.029 uIU/mL (0.358-3.740); Total Protein 7.1 g/dL (6.4-8.2); Triglycerides 194 mg/dL (<=150); VLDL CHOLESTEROL 38.8 mg/dL
== END 2025-07-24 08:35 | disposition home or self-care (01) ==
PROVIDERS: PCP Family Medicine
DX: Z00.00 Encounter for general adult medical examination without abnormal findings (principal)
CPT/HCPCS: 36415; 80053; 80061; 84443